=== PATIENT | female | born 1970 | race Caucasian/White ===

== ENCOUNTER → 2017-05-03 | Outpatient (CLI) | payer BC ==
--- NOTE | 2017-05-04 09:22 | MM ---
Reason for exam: screening (asymptomatic). Last mammogram was performed 1 year and 8 months ago. History: Patient has history of other cancer at age 26 and had first child at age 39. Family history of breast cancer in aunt at age 73. Took hormonal contraceptives for 12 years beginning at age 22. Physical Findings: A clinical breast exam by your physician is recommended on an annual basis and results should be correlated with mammographic findings. MG Screening Mammo w CAD Bilateral CC and MLO view(s) were taken. Prior study comparison: September 13, 2015, bilateral MG screening mammo w CAD. April 24, 2014, bilateral MG screening mammo w CAD. The breast tissue is heterogeneously dense. This may lower the sensitivity of mammography. Finding: There are typically benign round calcifications in the left breast. There is no discrete abnormality. ASSESSMENT: Benign, BI-RAD 2 RECOMMENDATION: Routine screening mammogram of both breasts in 1 year.
== END | disposition home or self-care (01) ==
LOC: RADMAMWWP 09:58
PROVIDERS: ATTEND Obstetrics & Gynecology
DX: Z12.31 Encounter for screening mammogram for malignant neoplasm of breast (principal)

== ENCOUNTER 2017-12-02 10:48 | Emergency (ER) | payer BC ==
[2017-12-02 10:54] VITALS: TEMP 97.7
--- NOTE | 2017-12-02 11:20 | ED ---
Headache HPI - General Chief Complaint: Headache Stated Complaint: NECK PAIN Time Seen by Provider: 12/02/17 11:00 Source: patient, RN notes reviewed Mode of arrival: ambulatory Limitations: no limitations - History of Present Illness Initial Comments: Is a 47-year-old female who presents with complaints of some pain to the right occipital area going down her neck and right arm. He occasionally have some tingling to her toe on the right foot that. She is not recall any incident of trauma but she does do exercising which includes running planks dumbbell workouts she states the pain is intermittent sharp in nature she points to the right occiput into the right lateral neck. This is a she intermittently will have some hearing loss and she looks to the right but then when she looks a left clears up she also complains right I blurry vision. She has not of this at this time. MD Complaint: headache, other - Related Data Home Medications Medication Instructions Recorded Confirmed Loratadine [Claritin] 10 mg PO DAILY 01/09/14 12/02/17 Potassium Chloride [Klor-Con 10] 10 meq PO DAILY 01/09/14 12/02/17 Etodolac [Lodine] 400 mg PO BID 12/02/17 12/02/17 Hydrochlorothiazide [Hydrodiuril] 25 mg PO DAILY 12/02/17 12/02/17 LORazepam [Ativan] 0.5 mg PO DAILY PRN 12/02/17 12/02/17 Previous Rx's Medication Instructions Recorded Cyclobenzaprine [Flexeril] 10 mg PO TID #14 tab 12/02/17 Ibuprofen 800 mg PO Q6HR PRN #20 tablet 12/02/17 predniSONE 20 mg PO BID #10 tab 12/02/17 Allergies Allergy/AdvReac Type Severity Reaction Status Date / Time clarithromycin [From Biaxin] Allergy Swelling Verified 12/02/17 11:03 erythromycin lactobionate Allergy Swelling Verified 12/02/17 11:03 [From Erythrocin] fexofenadine HCl Allergy Swelling Verified 12/02/17 11:03 [From Clara-D 12 Hour] Penicillins Allergy Dyspnea Verified 12/02/17 11:03 pseudoephedrine HCl Allergy Swelling Verified 12/02/17 11:03 [From Clara-D 12 Hour] Review of Systems ROS Statement: Those systems with pertinent positive or pertinent negative responses have been documented in the HPI. ROS Other: All systems not noted in ROS Statement are negative. Past Medical History Past Medical History: Hypertension Additional Past Medical History / Comment(s): bowel blockage for 3 weeks currently History of Any Multi-Drug Resistant Organisms: None Reported Past Surgical History: Section, Orthopedic Surgery, Tubal Ligation Additional Past Surgical History / Comment(s): jaw surgery to extend jaw. LEEP procedure Past Anesthesia/Blood Transfusion Reactions: No Reported Reaction Past Psychological History: No Psychological Hx Reported Smoking Status: Never smoker Past Alcohol Use History: None Reported Past Drug Use History: None Reported General Exam - General Exam Comments Initial Comments: This is a well-developed well-nourished awake alert oriented 3 female Limitations: no limitations General appearance: alert, anxious Head exam: Present: atraumatic, normocephalic, normal inspection Eye exam: Present: normal appearance, PERRL, EOMI. Absent: scleral icterus, conjunctival injection, periorbital swelling ENT exam: Present: normal exam, mucous membranes moist Neck exam: Present: normal inspection, tenderness, full ROM, other (Tennis palpation along the right occiput to palpation also the right lateral neck musculature and trapezius muscles. This does reproduce the pain when I palpate. ). Absent: meningismus, lymphadenopathy Respiratory exam: Present: normal lung sounds bilaterally. Absent: respiratory distress, wheezes, rales, rhonchi, stridor Cardiovascular Exam: Present: regular rate, normal rhythm, normal heart sounds. Absent: systolic murmur, diastolic murmur, rubs, gallop, clicks GI/Abdominal exam: Present: soft, normal bowel sounds. Absent: distended, tenderness, guarding, rebound, rigid Extremities exam: Present: normal inspection, full ROM, normal capillary refill. Absent: tenderness, pedal edema, joint swelling, calf tenderness Back exam: Present: normal inspection, full ROM. Absent: tenderness, muscle spasm, paraspinal tenderness, vertebral tenderness Neurological exam: Present: alert, oriented X3, CN II-XII intact Psychiatric exam: Present: normal affect, normal mood Skin exam: Present: warm, dry, intact, normal color. Absent: rash Course Vital Signs 12/02/17 10:50 Temperature 97.7 F Pulse Rate 72 Respiratory 18 Rate Blood Pressure 134/82 O2 Sat by Pulse 100 Oximetry Medical Decision Making - Medical Decision Making I did discuss the findings with the patient she does present with findings consistent with cervical radiculopathy and musculoskeletal pain and spasm. She' ll be placed on appropriate medication we did discuss different techniques for relieving the pain. - Lab Data Result diagrams: 12/02/17 11:46 12/02/17 11:46 Lab Results 12/02/17 12/02/17 Range/Units 11:46 11:46 WBC 5.2 (3.8-10.6) k/uL RBC 4.96 (3.80-5.40) m/uL Hgb 15.1 (11.4-16.0) gm/dL Hct 42.3 (34.0-46.0) % MCV 85.4 (80.0-100.0) fL MCH 30.4 (25.0-35.0) pg MCHC 35.6 (31.0-37.0) g/dL RDW 12.9 (11.5-15.5) % Plt Count 268 (150-450) k/uL Neutrophils % 67 % Lymphocytes % 26 % Monocytes % 4 % Eosinophils % 1 % Basophils % 0 % Neutrophils # 3.5 (1.3-7.7) k/uL Lymphocytes # 1.4 (1.0-4.8) k/uL Monocytes # 0.2 (0-1.0) k/uL Eosinophils # 0.1 (0-0.7) k/uL Basophils # 0.0 (0-0.2) k/uL Sodium 140 (137-145) mmol/L Potassium 4.2 (3.5-5.1) mmol/L Chloride 103 (98-107) mmol/L Carbon Dioxide 25 (22-30) mmol/L Anion Gap 12 mmol/L BUN 13 (7-17) mg/dL Creatinine 0.81 (0.52-1.04) mg/dL Est GFR (CKD-EPI)AfAm >90 (>60 ml/min/1.73 sqM) Est GFR (CKD-EPI)NonAf 87 (>60 ml/min/1.73 sqM) Glucose 85 (74-99) mg/dL Calcium 9.2 (8.4-10.2) mg/dL Magnesium 2.2 (1.6-2.3) mg/dL Total Bilirubin 0.7 (0.2-1.3) mg/dL AST 18 (14-36) U/L ALT 19 (9-52) U/L Alkaline Phosphatase 60 (38-126) U/L Total Protein 7.1 (6.3-8.2) g/dL Albumin 3.9 (3.5-5.0) g/dL - Radiology Data Radiology results: report reviewed (I did review the imaging and reports no acute findings there is evidence of degenerative change and lower cervical spine.), image reviewed Disposition Clinical Impression: Cervical radiculopathy, Myofascial pain Disposition: HOME SELF-CARE Condition: Good Instructions: Neck Pain (ED), Cervical Radiculopathy (ED), Muscle Spasm (ED) Additional Instructions: Refrain from taking her current pain medication until the other prescribed medication is completed Prescriptions: Cyclobenzaprine [Flexeril] 10 mg PO TID #14 tab Ibuprofen 800 mg PO Q6HR PRN #20 tablet PRN Reason: Pain predniSONE 20 mg PO BID #10 tab Referrals: Raymond Gallegos DO [Primary Care Provider] - 1-2 days
--- NOTE | 2017-12-02 11:52 | CT ---
EXAMINATION TYPE: CT brain rachel galeana DATE OF EXAM: 12/02/2017 COMPARISON: None. HISTORY: Patient complains of neck pain and right arm numbness. CT DLP: 1085.1 mGycm Automated exposure control for dose reduction was used. TECHNIQUE: CT scan of the head and cervical spine are performed without contrast. FINDINGS: BRAIN:Central structures are midline. There is no evidence of hydrocephalus. There is mild frontal at rophy. There is no focal lesion, mass effect or midline shift identified. I do not see evidence of in tracranial blood. Visualized portions of the paranasal sinuses and mastoids are clear. IMPRESSION: NO ACUTE INTRACRANIAL ABNORMALITY. CERVICAL SPINE: There are mild emphysematous changes within the lungs. Prevertebral soft tissues are unremarkable. There is a mild reversal of the normal cervical lordosis. Alignment is normal. Atlantoaxial relations hips are normal. There is mild degenerative disc disease at C5-6. There is uncovertebral joint diseas e present at this level. The facets are well maintained. There is mild, bilateral intervertebral fora kelvin narrowing at C5-6. No fractures are seen. IMPRESSION: 1. NO ACUTE OSSEOUS LESION. 2. DEGENERATIVE DISC DISEASE AND INTERVERTEBRAL FORAMINAL NARROWING, C5-6. 3. EMPHYSEMATOUS CHANGE WITHIN THE LUNGS.
[2017-12-02 11:55] LABS: Basophils % (A) 0 %; Eosinophils # (A) 0.1 k/uL (0-0.7); Eosinophils % (A) 1 %; HCT 42.3 % (34.0-46.0); HGB 15.1 gm/dL (11.4-16.0); Lymphocytes # (A) 1.4 k/uL (1.0-4.8); Lymphocytes % (A) 26 %; MCH 30.4 pg (25.0-35.0); MCHC 35.6 g/dL (31.0-37.0); MCV 85.4 fL (80.0-100.0); Mean Platelet Volume 6.5; Monocytes # (A) 0.2 k/uL (0-1.0); Monocytes % (A) 4 %; Neutrophils # (A) 3.5 k/uL (1.3-7.7); Neutrophils % (A) 67 %; Platelet Count 268 k/uL (150-450); RBC 4.96 m/uL (3.80-5.40); RDW 12.9 % (11.5-15.5); WBC 5.2 k/uL (3.8-10.6)
[2017-12-02 12:04] LABS: ALT 19 U/L (9-52); AST 18 U/L (14-36); Albumin 3.9 g/dL (3.5-5.0); Alkaline Phosphatase 60 U/L (38-126); Anion Gap 12 mmol/L; Blood Urea Nitrogen 13 mg/dL (7-17); Calcium 9.2 mg/dL (8.4-10.2); Carbon Dioxide 25 mmol/L (22-30); Chloride 103 mmol/L (98-107); Glucose 85 mg/dL (74-99); Magnesium 2.2 mg/dL (1.6-2.3); Potassium 4.2 mmol/L (3.5-5.1); Sodium 140 mmol/L (137-145); Total Bilirubin 0.7 mg/dL (0.2-1.3); Total Protein 7.1 g/dL (6.3-8.2)
[2017-12-02 12:57] VITALS: BP 122/77; PULSE 60; RESP 16
== END 2017-12-02 13:02 | disposition home or self-care (01) ==
LOC: EC 10:48
DX: M47.22 Other spondylosis with radiculopathy, cervical region (principal); M79.1 Myalgia; H91.91 Unspecified hearing loss, right ear; H53.8 Other visual disturbances; I10 Essential (primary) hypertension; Z79.1 Long term (current) use of non-steroidal anti-inflammatories (NSAID); Z79.899 Other long term (current) drug therapy; Z88.0 Allergy status to penicillin; Z88.1 Allergy status to other antibiotic agents; Z88.8 Allergy status to other drugs, medicaments and biological substances
CPT/HCPCS: 36415; 70450; 72125; 80053; 83735; 85025; 99284

== ENCOUNTER → 2018-04-18 | Outpatient (CLI) | payer BC ==
--- NOTE | 2018-04-18 09:36 | MR ---
EXAMINATION TYPE: MR brain wo/w con DATE OF EXAM: 04/18/2018 COMPARISON: CT brain 12/02/2017 HISTORY: TIA TECHNIQUE: Multiplanar, multisequence images of the brain and brainstem is performed without and with IV contras t, utilizing 8.5 mL intravenous Gadavist . FINDINGS: Diffusion weighted images demonstrate no evidence of a recent infarct or other diffusion ab normality. The ventricular system and cisternal spaces are normal in size and appearance. The brain volume is age appropriate. Midline structures demonstrate normal morphology. The craniocervical junction appears within normal limits. Post contrast images demonstrate no abnormal enhancement. The dural venous sinuses appear pa tent. Changes of mild chronic sinusitis. Area of low signal within the right thalamus may represent tiny ar ea of calcification. White matter: There are one or 2 less than 5 mm areas of abnormal signal scattered in the white matte r which are nonspecific. IMPRESSION: 1. No acute process. 2. Findings compatible with chronic sinusitis.
== END | disposition home or self-care (01) ==
LOC: RADMRIMAIN 07:49
PROVIDERS: ATTEND Psychiatry & Neurology Neurology
DX: G45.9 Transient cerebral ischemic attack, unspecified (principal); M54.2 Cervicalgia
CPT/HCPCS: 82565; 70553; 36415; A9581

== ENCOUNTER → 2018-05-28 | Outpatient (CLI) | payer BC ==
--- NOTE | 2018-05-29 07:06 | US ---
EXAMINATION TYPE: US transvaginal DATE OF EXAM: 05/28/2018 COMPARISON: NONE CLINICAL HISTORY: N92.1 Metrorrhagia. TECHNIQUE: Transvaginal (TV) Date of LMP: 05/04/18 EXAM MEASUREMENTS: Uterus: 8.4 x 4.5 x 4.8 cm Endometrial Stripe: 0.7 cm Right Ovary: 1.9 x 1.3 x 1.4 cm Left Ovary: 2.5 x 1.3 x 1.7 cm 1. Uterus: Anteverted, fibroid 1.5 x 1.5 x 1.4cm 2. Endometrium: 0.7cm 3. Right Ovary: somewhat limited due to overlying bowel gas, appears wnl 4. Left Ovary: wnl 5. Bilateral Adnexa: wnl 6. Posterior cul-de-sac: wnl IMPRESSION: 1. Leiomyomatous change of the uterus.
== END | disposition home or self-care (01) ==
LOC: RADUSWWP 16:10
PROVIDERS: ATTEND Obstetrics & Gynecology
DX: D25.9 Leiomyoma of uterus, unspecified (principal)
CPT/HCPCS: 76830

== ENCOUNTER → 2018-07-04 | Outpatient (CLI) | payer BC ==
--- NOTE | 2018-07-05 11:37 | MM ---
Reason for exam: screening (asymptomatic). Last mammogram was performed 1 year and 2 months ago. History: Patient has history of other cancer at age 26 and had first child at age 39. Family history of breast cancer in aunt at age 73. Took hormonal contraceptives for 12 years beginning at age 22. Physical Findings: A clinical breast exam by your physician is recommended on an annual basis and results should be correlated with mammographic findings. MG 3D Screening Mammo W/Cad Bilateral CC and MLO view(s) were taken. Prior study comparison: May 03, 2017, bilateral MG screening mammo w CAD. September 13, 2015, bilateral MG screening mammo w CAD. The breast tissue is heterogeneously dense. This may lower the sensitivity of mammography. Benign calcifications in the left breast. No suspicious abnormality. No significant changes when compared with prior studies. ASSESSMENT: Benign, BI-RAD 2 RECOMMENDATION: Routine screening mammogram of both breasts in 1 year.
== END | disposition home or self-care (01) ==
LOC: RADMAMWWP 15:47
PROVIDERS: ATTEND Obstetrics & Gynecology
DX: Z12.31 Encounter for screening mammogram for malignant neoplasm of breast (principal)
CPT/HCPCS: 77063; 77067

== ENCOUNTER → 2018-09-30 | Outpatient (CLI) | payer BC ==
[2018-09-30 12:34] LABS: Basophils % (A) 1 %; Eosinophils # (A) 0.1 k/uL (0-0.7); Eosinophils % (A) 2 %; HCT 43.6 % (34.0-46.0); HGB 14.4 gm/dL (11.4-16.0); Lymphocytes # (A) 1.6 k/uL (1.0-4.8); Lymphocytes % (A) 35 %; MCH 29.7 pg (25.0-35.0); MCV 89.9 fL (80.0-100.0); Mean Platelet Volume 6.2; Monocytes # (A) 0.2 k/uL (0-1.0); Monocytes % (A) 4 %; Neutrophils # (A) 2.6 k/uL (1.3-7.7); Neutrophils % (A) 57 %; Platelet Count 262 k/uL (150-450); RBC 4.85 m/uL (3.80-5.40); RDW 12.9 % (11.5-15.5); WBC 4.6 k/uL (3.8-10.6)
== END | disposition home or self-care (01) ==
LOC: LABPAT 11:09
PROVIDERS: ATTEND Obstetrics & Gynecology
DX: Z01.812 Encounter for preprocedural laboratory examination (principal)
CPT/HCPCS: 36415; 85025

== ENCOUNTER 2018-10-03 06:17 | Day surgery (SDC) | payer BC ==
--- NOTE | 2018-10-02 17:20 | P.HPOB ---
History of Present Illness H&P Date: 10/02/18 Chief Complaint: Dysfunctional uterine bleeding This patient is a pleasant 47-year-old 4 para 2 female who presented to my office with complaints of long-standing dysfunctional uterine bleeding. Patient endometrial biopsy which was normal. Patient also had a transvaginal ultrasound which was also normal with the exception of a 1.5 cm fibroid. Patient has had a tubal ligation. She is now requesting NovaSure endometrial ablation for treatment. Review of Systems Genitourinary: Reports as per HPI, Reports abnormal vaginal bleeding, Reports menorrhagia Menstruation: Reports menses variable Past Medical History Past Medical History: CVA/TIA, Hypertension, Osteoarthritis (OA) Additional Past Medical History / Comment(s): CURRENT: HAVING TWO PERIODS A MONTH. POSSIBLE TIA. History of Any Multi-Drug Resistant Organisms: None Reported Past Surgical History: Section, Orthopedic Surgery, Tubal Ligation Additional Past Surgical History / Comment(s): Jaw surgery to extend jaw 1992. LEFT KNEE ARTHROSCOPY. LEFT MIDDLE FINGER, GANGLION. LEEP procedure Past Anesthesia/Blood Transfusion Reactions: No Reported Reaction Past Psychological History: Anxiety, Depression Smoking Status: Never smoker Past Alcohol Use History: Occasional Past Drug Use History: None Reported - Past Family History Father Family Medical History: Deep Vein Thrombosis (DVT) Medications and Allergies Home Medications Medication Instructions Recorded Confirmed Type Loratadine [Claritin] 10 mg PO QAM 01/09/14 10/01/18 History Potassium Chloride [Klor-Con 10] 10 meq PO QAM 01/09/14 10/01/18 History Etodolac [Lodine] 400 mg PO BID PRN 12/02/17 10/01/18 History Hydrochlorothiazide [Hydrodiuril] 25 mg PO QAM 12/02/17 10/01/18 History Ibuprofen 800 mg PO Q6HR PRN #20 tablet 12/02/17 10/01/18 Rx LORazepam [Ativan] 0.5 mg PO QAM 12/02/17 10/01/18 History Escitalopram [Lexapro] 20 mg PO QAM 10/01/18 10/01/18 History Allergies Allergy/AdvReac Type Severity Reaction Status Date / Time clarithromycin [From Biaxin] Allergy Swelling Verified 10/01/18 15:24 erythromycin lactobionate Allergy Swelling Verified 10/01/18 15:24 [From Erythrocin] fexofenadine HCl Allergy Swelling Verified 10/01/18 15:24 [From Clara-D 12 Hour] Penicillins Allergy Dyspnea Verified 10/01/18 15:24 pseudoephedrine HCl Allergy Swelling Verified 10/01/18 15:24 [From Clara-D 12 Hour] Sulfa (Sulfonamide Allergy Unknown Verified 10/01/18 15:24 Antibiotics) Exam - OBG Physical Exam Abdomen: bowel sounds normal, no diffuse tenderness, no bruit present, no guarding noted, no hepatomegaly, no splenomegaly, no mass Vulva: both: normal Vagina: normal moisture, no discharge Cervix: no lesion, no discharge Uterus: normal size, normal contour Results Normal transvaginal ultrasound and endometrial biopsy. Assessment and Plan Assessment: This is a pleasant 47-year-old 4 para 2 female with persistent dysfunctional uterine bleeding and negative evaluation. Patient is requesting trial of NovaSure endometrial ablation for treatment. She and I discussed the surgery in detail including the risks of infection, bleeding possible uterine perforation and/or thermal injury. All the patient's questions are answered and a written consent is obtained. Plan is hysteroscopy, D&C, endometrial ablation with NovaSure. (1) Dysfunctional uterine bleeding Status: Acute Code(s): N93.8 - OTHER SPECIFIED ABNORMAL UTERINE AND VAGINAL BLEEDING SNOMED Code(s): 68579946
[~2018-10-03 06:17] MED LIST: DEXAMETHASONE SOD PHOSPHATE 10 MG/ML 1 ML VIAL IV ONE; LIDOCAINE 1% 20 ML VIAL (10MG/ML) FOR IV START INTRADERMA PRN; MIDAZOLAM (PF) 2 MG/2 ML VIAL IV PRN; ONDANSETRON 4 MG/2 ML VIAL IVP ONE; Pre Op ABX Message 1 EACH MISC MISCELLANE ONE; fentaNYL (PF) 50 MCG/ML 2 ML AMP IV PRN
[2018-10-03] MEDS: LACTATED RINGERS 1,000 ML IV SCH ×2 (07:12→07:25)
[2018-10-03] MEDS ORDERED: LIDOCAINE 1% 20 ML VIAL (10MG/ML) FOR IV START INTRADERMA ONE (07:13)
[2018-10-03] MEDS ORDERED: PROPOFOL 10 MG/ML 20 ML VIAL IV ONE (07:21)
[2018-10-03] MEDS ORDERED: MIDAZOLAM 2 MG/2 ML VIAL ONE (07:21)
[2018-10-03] MEDS ORDERED: fentaNYL (PF) 50 MCG/ML 2 ML AMP ONE (07:21)
[2018-10-03] MEDS ORDERED: KETOROLAC 30 MG/ML 1 ML VIAL ONE (07:21)
[2018-10-03] MEDS ORDERED: LIDOCAINE 1% INJ 10MG/ML (20 ML MDV) ONE (07:21)
[2018-10-03] MEDS ORDERED: IV FLUID CONTINUATION 1,000 ML IV ONE (08:00)
--- NOTE | 2018-10-03 08:03 | P.OP ---
Date of Procedure: 10/03/18 Preoperative Diagnosis: Dysfunctional uterine bleeding Postoperative Diagnosis: Same Procedure(s) Performed: #1: Hysteroscopy. #2: Dilation and curettage. #3: NovaSure endometrial ablation Anesthesia: MAC Surgeon: Landen Saxena Estimated Blood Loss (ml): 10 Urine output (ml): 10 Pathology: other (Uterine curettings) Condition: stable Disposition: PACU Indications for Procedure: Please see dictated H&P for intimate details of this patient's admission. Brief summary this pleasant 47-year-old 4 para 2 female who has had long -standing problems with menorrhagia. Evaluation has shown a normal pelvic ultrasound a normal endometrial biopsy. Patient is requesting endometrial ablation for treatment at this time. She does understand the surgery and risks including risks of infection, bleeding, possible uterine perforation, and/or thermal injury. All the patient's questions are answered written consent is obtained Operative Findings: Normal appearing endometrial cavity Description of Procedure: This patient was taken to the operating room where she is laid in the supine position. She subsequently undergoes general mask anesthesia without incident. With adequate level of anesthesia she's placed in dorsal lithotomy position. She has a vaginal perineal prep and drape. Examination under anesthesia shows a mid position uterus. Weighted speculum was placed in the posterior vagina. Bladder is drained for 10 mL of clear urine. I then take an Allis clamp and grabbed the anterior lip of the cervix. Uterus is then gently sounded to 8.5 cm. Gentle dilation is then done of the cervix to allow the hysteroscope into the uterine cavity. Using saline solution hysteroscopy is performed. Is no evidence of any intrauterine growths. With this done the hysteroscope was removed the cervix is dilated more to allow a small curette into the uterine cavity. A gentle but thorough 4 quadrant curettage is done for adequate sampling. With this done the NovaSure device is then opened appears to be intact. It is set at a length of 6.0 cm and seated in the uterus and opens to a width of 3.6 cm. It is then enabled at 119 W setting for 80 seconds. After passing the cavity integrity test. NovaSure device is then removed and appears to be intact. Final hysteroscopy is performed uterine cavity appears to be ablated up to the endocervix. Excellent results are noted. At this time the procedure is ended the weighted speculum Allis clamp was removed. All counts are correct 3. There are no complications. Patient is awakened from anesthesia and taken the recovery room in satisfactory condition.
[2018-10-03 08:09] VITALS: TEMP 97.4
[2018-10-03 09:21] VITALS: RESP 16
[2018-10-03] MEDS ORDERED: ACETAMINOPHEN TAB 500 MG TAB PO ONE (09:47)
[2018-10-03 09:51] VITALS: PULSE 50
[2018-10-03 10:07] VITALS: BP 127/76
== END 2018-10-03 10:45 | disposition home or self-care (01) ==
LOC: OR 06:17
PROVIDERS: ATTEND Obstetrics & Gynecology
DX: N93.8 Other specified abnormal uterine and vaginal bleeding (principal); D21.9 Benign neoplasm of connective and other soft tissue, unspecified; I10 Essential (primary) hypertension; M19.90 Unspecified osteoarthritis, unspecified site; F41.9 Anxiety disorder, unspecified; F32.9 Major depressive disorder, single episode, unspecified; Z98.51 Tubal ligation status; Z86.73 Personal history of transient ischemic attack (TIA), and cerebral infarction without residual deficits; Z79.899 Other long term (current) drug therapy; Z79.82 Long term (current) use of aspirin; Z88.0 Allergy status to penicillin; Z88.1 Allergy status to other antibiotic agents; Z88.8 Allergy status to other drugs, medicaments and biological substances; Z88.2 Allergy status to sulfonamides
CPT/HCPCS: 81025; 88305; 58563; J2250; J1100; J2405; J2001; J3010; J1885; J2704

== ENCOUNTER → 2019-08-20 | Outpatient (CLI) | payer BC ==
--- NOTE | 2019-08-21 14:10 | MM ---
Reason for exam: screening (asymptomatic). Last mammogram was performed 1 year and 2 months ago. History: Patient has history of other cancer at age 26 and had first child at age 39. Family history of breast cancer in aunt at age 73. Took hormonal contraceptives for 12 years beginning at age 22. Physical Findings: A clinical breast exam by your physician is recommended on an annual basis and results should be correlated with mammographic findings. MG Screening Mammo w CAD Bilateral CC and MLO view(s) were taken. Prior study comparison: July 04, 2018, bilateral MG 3d screening mammo w/cad. May 03, 2017, bilateral MG screening mammo w CAD. The breast tissue is heterogeneously dense. This may lower the sensitivity of mammography. Benign appearing calcifications in the left breast. No suspicious abnormality. No significant changes when compared with prior studies. ASSESSMENT: Benign, BI-RAD 2 RECOMMENDATION: Routine screening mammogram of both breasts in 1 year.
== END | disposition home or self-care (01) ==
LOC: RADMAMWWP 16:44
PROVIDERS: ATTEND Obstetrics & Gynecology
DX: Z12.31 Encounter for screening mammogram for malignant neoplasm of breast (principal)
CPT/HCPCS: 77067

== ENCOUNTER → 2019-10-10 | Outpatient (CLI) | payer BC | END | disposition home or self-care (01) | LOC: LABWHC1 10:56 | PROVIDERS: ATTEND Orthopaedic Surgery | DX: I10 Essential (primary) hypertension (principal); M25.511 Pain in right shoulder; E78.5 Hyperlipidemia, unspecified; M75.31 Calcific tendinitis of right shoulder; S43.401D Unspecified sprain of right shoulder joint, subsequent encounter | CPT/HCPCS: 36415; 85652; 86140 ==

== ENCOUNTER → 2019-10-23 | Outpatient (CLI) | payer BC ==
--- NOTE | 2019-10-23 10:47 | CT ---
EXAMINATION TYPE: CT chest w con DATE OF EXAM: 10/23/2019 COMPARISON: None HISTORY: SOB, pleural effusion CT DLP: 449.8 mGycm, Automated exposure control for dose reduction was used. CONTRAST: Performed injected with 100 mL of Isovue 300. TECHNIQUE: Axial images were obtained at 5 mm thick sections. Reconstructed images are reviewed on [facility] computer in the coronal plane. FINDINGS: Portion of the thyroid visualized is normal. No suspicious lung nodules or focal infiltrates are present. No pleural effusion is evident. No enlarged mediastinal or hilar adenopathy is evident. The ascending aorta diameter at the level o f the main pulmonary artery is 3.1 cm. The main pulmonary artery diameter at the bifurcation is 2.[address] sections are obtained through the upper abdomen. Abdomen is essentially unremarkable. IMPRESSIONS: 1. Normal Chest CT.
--- NOTE | 2019-10-23 19:42 | ECHOF ---
Referral Reason:J90 Plural Effusion not elsewhere specified MEASUREMENTS -------- HEIGHT: 175.3 cm WEIGHT: 96.6 kg BP: IVSd: 1.6 cm (0.6 - 1.1) LVIDd: 3.3 cm (3.9 - 5.3) LVPWd: 1.6 cm (0.6 - 1.1) IVSs: 1.8 cm LVIDs: 1.8 cm LVPWs: 2.1 cm RVIDd: 2.8 cm (< 3.3) LAESV Index (A-L): 25.68 ml/m Ao Diam: 2.3 cm (2.0 - 3.7) LA Diam: 2.9 cm (2.7 - 3.8) AV Cusp: 1.8 cm (1.5 - 2.6) EPSS: 0.3 cm MV E Chauncey: 0.83 m/s MV DecT: 248 ms MV A Chauncey: 0.85 m/s MV E/A Ratio: 0.97 RAP: 5.00 mmHg RVSP: 16.53 mmHg MV EF SLOPE: 91.74 mm/s (70 - 150) MV EXCURSION: 14.23 mm (> 18.000) TAPSE: 21.52 mm FINDINGS -------- Sinus rhythm. This was a technically good study. The left ventricular size is normal. There is moderate concentric left ventricular hypertrophy. O verall left ventricular systolic function is normal with, an EF between 55 - 60 %. The diastolic fi lling pattern is normal for the age of the patient 12.39. The right ventricle is normal in size. The left atrial size is normal. Normal LA size by volume 22+/-6 ml/m2. The right atrial size is normal. The aortic valve is trileaflet and appears structurally normal. The mitral valve is normal. The mitral valve leaflets are mildly thickened. Mild mitral regurgita tion is present. The tricuspid valve appears structurally normal. Trace tricuspid regurgitation present. Right gissel tricular systolic pressure is normal at < 35 mmHg. There is no pulmonic regurgitation present. The aortic root size is normal. Normal inferior vena cava with normal inspiratory collapse consistent with estimated right atrial pre ssure of 5 mmHg. There is no pericardial effusion. CONCLUSIONS -------- 1. Sinus rhythm. 2. This was a technically good study. 3. The left ventricular size is normal. 4. There is moderate concentric left ventricular hypertrophy. 5. Overall left ventricular systolic function is normal with, an EF between 55 - 60 %. 6. The diastolic filling pattern is normal for the age of the patient 12.39 7. The right ventricle is normal in size. 8. The left atrial size is normal. 9. Normal LA size by volume 22+/-6 ml/m2. 10. The right atrial size is normal. 11. The aortic valve is trileaflet and appears structurally normal. 12. The mitral valve is normal. 13. The mitral valve leaflets are mildly thickened. 14. Mild mitral regurgitation is present. 15. The tricuspid valve appears structurally normal. 16. Trace tricuspid regurgitation present. 17. Right ventricular systolic pressure is normal at < 35 mmHg. 18. There is no pulmonic regurgitation present. 19. The aortic root size is normal. 20. Normal inferior vena cava with normal inspiratory collapse consistent with estimated right atrial pressure of 5 mmHg. 21. There is no pericardial effusion. AUTOGLAZIER: Rosalie Maki RDCS
== END | disposition home or self-care (01) ==
LOC: RADCTMAIN 09:48
PROVIDERS: ATTEND Family Medicine
DX: I34.0 Nonrheumatic mitral (valve) insufficiency (principal); J90 Pleural effusion, not elsewhere classified
CPT/HCPCS: 93306; 71260; Q9967

== ENCOUNTER 2019-12-04 20:18 | Emergency (ER) | payer BC ==
[2019-12-04 20:25] VITALS: BP 130/85; PULSE 82; RESP 18; TEMP 97.8
[2019-12-04] MEDS ORDERED: PROPARACAINE 0.5% OPHTH DROPS 15 ML BTL RIGHT EYE STA (20:31)
[2019-12-04] MEDS ORDERED: FLUORESCEIN STRIPS 1 MG STRIP RIGHT EYE ONE (20:31)
--- NOTE | 2019-12-04 20:34 | ED ---
General Adult HPI - General Chief complaint: ENT Stated complaint: Eye Problems Time Seen by Provider: 12/04/19 20:26 Source: patient Mode of arrival: ambulatory Limitations: no limitations - History of Present Illness Initial comments: Patient is a 49-year-old female presenting to the emergency Department with complaints of irritation her right eye. Patient states she was sewing facial mask when the needle broke off and hit her in the right eye. Patient feels like there is still something in her eye. She states this happened just prior to arrival. She admits to wearing contacts however they were not in when this happened. She denies loss of vision, eye pain. She has no other complaints at this time. Upon arrival to ER, her vital signs are stable. - Related Data Home Medications Medication Instructions Recorded Confirmed Loratadine [Claritin] 10 mg PO QAM 01/09/14 10/03/18 Potassium Chloride [Klor-Con 10] 10 meq PO QAM 01/09/14 10/03/18 Etodolac [Lodine] 400 mg PO BID PRN 12/02/17 10/03/18 Hydrochlorothiazide [Hydrodiuril] 25 mg PO QAM 12/02/17 10/03/18 LORazepam [Ativan] 0.5 mg PO QAM 12/02/17 10/03/18 Escitalopram [Lexapro] 20 mg PO QAM 10/01/18 10/03/18 Previous Rx's Medication Instructions Recorded Ibuprofen 800 mg PO Q6HR PRN #20 tablet 12/02/17 Ibuprofen [Motrin] 600 mg PO Q6HR PRN #40 tab 10/03/18 Gentamicin 0.3% Ophth Oint [Gentak 1 applic RIGHT EYE Q8H 5 Days #1 12/04/19 0.3% Ophth Oint] tube Allergies Allergy/AdvReac Type Severity Reaction Status Date / Time clarithromycin [From Biaxin] Allergy Swelling Verified 10/03/18 06:54 erythromycin lactobionate Allergy Swelling Verified 10/03/18 06:54 [From Erythrocin] fexofenadine HCl Allergy Swelling Verified 10/03/18 06:54 [From Clara-D 12 Hour] Penicillins Allergy Dyspnea Verified 10/03/18 06:54 pseudoephedrine HCl Allergy Swelling Verified 10/03/18 06:54 [From Clara-D 12 Hour] Sulfa (Sulfonamide Allergy Unknown Verified 10/03/18 06:54 Antibiotics) Review of Systems ROS Statement: Those systems with pertinent positive or pertinent negative responses have been documented in the HPI. ROS Other: All systems not noted in ROS Statement are negative. Past Medical History Past Medical History: Hypertension Additional Past Medical History / Comment(s): bowel blockage, Fx clavicle, fluid around spine, torn rotator , History of Any Multi-Drug Resistant Organisms: None Reported Past Surgical History: Ablation, Section Additional Past Surgical History / Comment(s): jaw surgery to extend jaw. LEEP procedure Past Anesthesia/Blood Transfusion Reactions: No Reported Reaction Past Psychological History: No Psychological Hx Reported Smoking Status: Never smoker Past Alcohol Use History: Occasional Past Drug Use History: None Reported General Exam - General Exam Comments Initial Comments: GENERAL: Well-appearing, well-nourished and in no acute distress. HEAD: Atraumatic, normocephalic. EYES: Pupils equal round and reactive to light, extraocular movements intact, sclera anicteric, conjunctiva are normal. With fluorescein stain, mild corneal abrasion at the 3 o'clock position. No foreign bodies are seen. ENT: TMs normal, nares patent, oropharynx clear without exudates. Moist mucous membranes. NECK: Normal range of motion, supple without lymphadenopathy or JVD. LUNGS: Breath sounds clear to auscultation bilaterally and equal. No wheezes rales or rhonchi. HEART: Regular rate and rhythm without murmurs, rubs or gallops. ABDOMEN: Soft, nontender, normoactive bowel sounds. No guarding, no rebound. No masses appreciated. : Deferred EXTREMITIES: Normal range of motion, no pitting or edema. No clubbing or cyanosis. NEUROLOGICAL: Normal speech, normal gait. PSYCH: Normal mood, normal affect. SKIN: Warm, Dry, normal turgor, no rashes or lesions noted. Limitations: no limitations Course Vital Signs 12/04/19 20:20 Temperature 97.8 F Pulse Rate 82 Respiratory 18 Rate Blood Pressure 130/85 O2 Sat by Pulse 99 Oximetry Medical Decision Making - Medical Decision Making Patient is 49-year-old female complaining of right eye irritation after a needle hit her right thigh. Vitals are stable. Vision is normal. Under fluorescein stain, patient has a mild corneal abrasion to the right at 3 o'clock position. No foreign bodies are seen. Patient will be started antibiotic ointment. She'll follow up with eye doc if symptoms persist. She is stable for discharge and is agreement with this plan of care. Return parameters were discussed with the patient and she verbalized understanding. Disposition Clinical Impression: Injury of conjunctiva and corneal abrasion of right eye w/o FB Disposition: HOME SELF-CARE Condition: Stable Instructions (If sedation given, give patient instructions): Corneal Abrasion (ED) Additional Instructions: Please return to the Emergency Department if symptoms worsen or any other concerns. Use antibiotic ointment as prescribed. Follow-up with eye doctor if symptoms aren't improving. Prescriptions: Gentamicin 0.3% Ophth Oint [Gentak 0.3% Ophth Oint] 1 applic RIGHT EYE Q8H 5 Days #1 tube Is patient prescribed a controlled substance at d/c from ED?: No Referrals: Raymond Gallegos DO [Primary Care Provider] - 1-2 days
== END 2019-12-04 20:52 | disposition home or self-care (01) ==
LOC: EC 20:18
DX: S05.01XA Injury of conjunctiva and corneal abrasion without foreign body, right eye, initial encounter (principal); I10 Essential (primary) hypertension; Z88.0 Allergy status to penicillin; Z88.1 Allergy status to other antibiotic agents; Z88.2 Allergy status to sulfonamides; Z88.8 Allergy status to other drugs, medicaments and biological substances; Z79.899 Other long term (current) drug therapy; Z97.3 Presence of spectacles and contact lenses; W20.8XXA Other cause of strike by thrown, projected or falling object, initial encounter; Y93.89 Activity, other specified
CPT/HCPCS: 99283

== ENCOUNTER → 2020-09-13 | Outpatient (CLI) | payer BC ==
--- NOTE | 2020-09-13 13:18 | BD ---
EXAMINATION TYPE: Axial Bone Density DATE OF EXAM: 09/13/2020 COMPARISON: NONE CLINICAL HISTORY: 49 YR OLD FEMALE.....ICD-10 CODE: Z13.820 OSTEOPOROSIS SCREENING, Z78.0 POST ME NOPAUSAL Height: 67.8 Weight: 217 FRAX RISK QUESTIONS: History of Fracture in Adulthood: YES Rheumatoid Arthritis: YES RISK FACTORS HISTORY OF: LT FOOT AND LT WRIST AND RT CLAVICLE ALL AN ADULT History of Wrist Fracture: YES, LT Family History of Osteoporosis: YES, NO HIP FX Postmenopausal woman: LMP ABLATION 2 YRS AGO, Hyperparathyroidism: NO Adrenal Insufficiency: NO MEDICATIONS: Thyroid Medications: YES, SYNTHROID, 1 YR Additional Medications: BP MED, LORAZEPAM, OCELOPRAM, STATIN FOR CHOLESTEROL, VIT D AND CALCIUM Additional History: HYPERTENSION, CHOLESTEROL, RA EXAM MEASUREMENTS: Bone mineral densitometry was performed using the [employer] System. Bone mineral density as measured about the Lumbar spine is: ----- L1-L4(G/cm2): 1.413 T Score Values are as follows: ----- L1: 0.7 ----- L2: 2.1 ----- L3: 2.6 ----- L4: 2.0 ----- L1-L4: 1.9 Bone mineral density FIRST BONE DENSITY..........BASELINE STUDY Bone mineral density about the R hip (g/cm2): 1.016 Bone mineral density about the L hip (g/cm2): 1.104 T Score values are as follows: -----R Neck: 0.0 -----L Neck: 0.2 -----R Total: 0.1 -----L Total: 0.8 Bone mineral density BASELINE STUDY FRAX%s: THERE IS A 8.3% CHANCE FOR A MAJOR OSTEOPOROTIC FX AND A 0.2% FOR HIP.......PROBABILITY FO R FX IN 10 YRS TIME IMPRESSION: Normal (Values between +1 and -1 indicate normal bone mass). Consider repeating this study in 5 year s or sooner if there is some new clinical indication. NOTE: T-SCORE=SD OF THE YOUNG ADULT MEAN.
--- NOTE | 2020-09-14 10:31 | MM ---
Reason for exam: screening (asymptomatic). Last mammogram was performed 1 year and 1 month ago. History: Patient has history of other cancer at age 26 and had first child at age 39. Family history of breast cancer in aunt at age 73. Took hormonal contraceptives for 12 years beginning at age 22. Physical Findings: A clinical breast exam by your physician is recommended on an annual basis and results should be correlated with mammographic findings. MG 3D Screening Mammo W/Cad Bilateral CC and MLO view(s) were taken. Prior study comparison: August 20, 2019, bilateral MG screening mammo w CAD. July 04, 2018, bilateral MG 3d screening mammo w/cad. The breast tissue is heterogeneously dense. This may lower the sensitivity of mammography. Benign calcifications. No significant changes when compared with prior studies. ASSESSMENT: Incomplete: need additional imaging evaluation, BI-RAD 0 RECOMMENDATION: Ultrasound of both breasts. [facility] will attempt to contact patient to return for ultrasound.
== END | disposition home or self-care (01) ==
LOC: RADMAMWWP 09:19
PROVIDERS: ATTEND Obstetrics & Gynecology
DX: Z12.31 Encounter for screening mammogram for malignant neoplasm of breast (principal); Z13.820 Encounter for screening for osteoporosis; Z78.0 Asymptomatic menopausal state; Z80.3 Family history of malignant neoplasm of breast
CPT/HCPCS: 77063; 77067; 77080

== ENCOUNTER → 2020-09-15 | Outpatient (CLI) | payer BC ==
--- NOTE | 2020-09-15 09:24 | USB ---
Reason for exam: additional evaluation requested from abnormal screening. History: Patient has history of other cancer at age 26 and had first child at age 39. Family history of breast cancer in aunt at age 73. Took hormonal contraceptives for 12 years beginning at age 22. Physical Findings: Nurse Summary: Patient complains of heavy swollen breasts, constant pressure/pain (nurse mj). US Breast Workup JACOB Right complete breast ultrasound includes all four quadrants, the retroareolar region and axilla. Finding demonstrates no cystic or solid lesion seen. Left complete breast ultrasound includes all four quadrants, the retroareolar region and axilla. Finding demonstrates a 2.2 x 0.3 x 2.7cm cystic cluster at 2 o'clock likely fibrocystic change and a 0.5 x 0.6 x 0.5cm cystic, benign lesion at the posterior nipple. These results were verbally communicated with the patient and result sheet given to the patient on 09/15/20. ASSESSMENT: Benign, BI-RAD 2 RECOMMENDATION: Return to routine screening mammogram schedule for both breasts. Manage on a clinical basis with regard to bilateral breast pain.
== END | disposition home or self-care (01) ==
LOC: RADUSWWP 08:04
PROVIDERS: ATTEND Obstetrics & Gynecology
DX: R92.8 Other abnormal and inconclusive findings on diagnostic imaging of breast (principal)

== ENCOUNTER 2020-09-29 16:12 | Observation (INO) | payer BC ==
[2020-09-29 17:24] LABS: Basophils % (A) 0 %; Eosinophils # (A) 0.1 k/uL (0-0.7); Eosinophils % (A) 1 %; HCT 43.9 % (34.0-46.0); HGB 15.1 gm/dL (11.4-16.0); Lymphocytes # (A) 2.2 k/uL (1.0-4.8); Lymphocytes % (A) 36 %; MCH 30.2 pg (25.0-35.0); MCHC 34.4 g/dL (31.0-37.0); MCV 87.6 fL (80.0-100.0); Mean Platelet Volume 6.7; Monocytes # (A) 0.3 k/uL (0-1.0); Monocytes % (A) 4 %; Neutrophils # (A) 3.6 k/uL (1.3-7.7); Neutrophils % (A) 58 %; Platelet Count 247 k/uL (150-450); RBC 5.01 m/uL (3.80-5.40); RDW 12.5 % (11.5-15.5); WBC 6.2 k/uL (3.8-10.6)
[2020-09-29 17:34] LABS: ALT 15 U/L (4-34); AST 30 U/L (14-36); African American GFR (CKD) >90 (>60 ml/min/1.73 sqM); Albumin 4.7 g/dL (3.5-5.0); Alkaline Phosphatase 80 U/L (38-126); Anion Gap 10 mmol/L; Blood Urea Nitrogen 16 mg/dL (7-17); Calcium 9.7 mg/dL (8.4-10.2); Carbon Dioxide 27 mmol/L (22-30); Chloride 103 mmol/L (98-107); Glucose 95 mg/dL (74-99); Magnesium 2.2 mg/dL (1.6-2.3); Non-African American GFR(CKD) >90 (>60 ml/min/1.73 sqM); Potassium 3.8 mmol/L (3.5-5.1); Sodium 140 mmol/L (137-145); Total Bilirubin 0.6 mg/dL (0.2-1.3); Total Protein 8.1 g/dL (6.3-8.2)
--- NOTE | 2020-09-29 17:41 | XR ---
EXAMINATION TYPE: XR chest 2V DATE OF EXAM: 09/29/2020 COMPARISON: NONE HISTORY: Short of breath TECHNIQUE: 2 views FINDINGS: Heart and mediastinum are normal. Lungs are clear. Diaphragm is normal. Bony thorax appears normal. IMPRESSION: Normal chest.
[2020-09-29 17:44] LABS: D-Dimer 0.3 mg/L FEU (<0.60); Partial Thromboplastin Time 27.2 sec (22.0-30.0); Prothrombin Time 10.7 sec (9.0-12.0)
--- NOTE | 2020-09-29 17:48 | ED ---
General Adult HPI - General Chief complaint: Chest Pain Stated complaint: chest pressure/SOB Time Seen by Provider: 09/29/20 16:32 Source: patient, EMS, RN notes reviewed, old records reviewed Mode of arrival: EMS Limitations: altered mental status - History of Present Illness Initial comments: 49-year-old female presenting for evaluation of dyspnea, left-sided chest pain. Patient states her symptom is been ongoing for several months since prior to C hristmas. She states over the past several days and seems to have worsened. She denies cough. She denies fever but states she's been chilled. She had had this generalized weakness and fatigue as well. She will follow with a primary care physician and states she has an echocardiogram ordered for next week. She has no known history of coronary artery disease. She denies central radiating chest pain. She denies cough. She denies orthopnea. She denies lower extremity pain or swelling. - Related Data Home Medications Medication Instructions Recorded Confirmed Loratadine [Claritin] 10 mg PO DAILY PRN 01/09/14 09/29/20 LORazepam [Ativan] 0.5 mg PO BID PRN 12/02/17 09/29/20 hydroCHLOROthiazide [Hydrodiuril] 25 mg PO DAILY 12/02/17 09/29/20 Escitalopram [Lexapro] 20 mg PO DAILY 10/01/18 09/29/20 Atorvastatin [Lipitor] 10 mg PO HS 09/29/20 09/29/20 Levothyroxine Sodium [Synthroid] 25 mcg PO HS 09/29/20 09/29/20 Allergies Allergy/AdvReac Type Severity Reaction Status Date / Time clarithromycin [From Biaxin] Allergy Swelling Verified 09/29/20 17:30 erythromycin lactobionate Allergy Swelling Verified 09/29/20 17:30 [From Erythrocin] fexofenadine HCl Allergy Swelling Verified 09/29/20 17:30 [From Clara-D 12 Hour] Penicillins Allergy Dyspnea Verified 09/29/20 17:30 pseudoephedrine HCl Allergy Swelling Verified 09/29/20 17:30 [From Clara-D 12 Hour] Sulfa (Sulfonamide Allergy Unknown Verified 09/29/20 17:30 Antibiotics) Review of Systems ROS Statement: Those systems with pertinent positive or pertinent negative responses have been documented in the HPI. ROS Other: All systems not noted in ROS Statement are negative. Past Medical History Past Medical History: CVA/TIA, Hypertension, Pneumonia Additional Past Medical History / Comment(s): [place] december 02, 2017bowel blockage, Fx clavicle, fluid around spine, torn rotator , History of Any Multi-Drug Resistant Organisms: None Reported Past Surgical History: Ablation, Section Additional Past Surgical History / Comment(s): jaw surgery to extend jaw. LEEP procedure Past Anesthesia/Blood Transfusion Reactions: No Reported Reaction Past Psychological History: No Psychological Hx Reported Smoking Status: Never smoker Past Alcohol Use History: Occasional Past Drug Use History: None Reported General Exam Limitations: altered mental status General appearance: alert, in no apparent distress Head exam: Present: atraumatic, normocephalic Eye exam: Present: normal appearance, PERRL ENT exam: Present: normal exam Neck exam: Present: normal inspection. Absent: tenderness, meningismus Respiratory exam: Present: normal lung sounds bilaterally. Absent: respiratory distress, wheezes, rales Cardiovascular Exam: Present: regular rate, normal rhythm GI/Abdominal exam: Present: soft. Absent: distended, tenderness, guarding Extremities exam: Present: normal inspection, normal capillary refill. Absent: pedal edema Neurological exam: Present: alert, oriented X3, CN II-XII intact. Absent: motor sensory deficit Psychiatric exam: Present: normal affect, normal mood Skin exam: Present: warm, dry, intact. Absent: cyanosis, diaphoretic Course Vital Signs 09/29/20 09/29/20 16:59 18:03 Temperature 97.8 F 97.8 F Pulse Rate 61 59 L Respiratory 18 18 Rate Blood Pressure 132/90 127/97 O2 Sat by Pulse 96 99 Oximetry EKG Findings - EKG Comments: EKG Findings:: EKG: Normal sinus rhythm, rate of 60, OR interval 164, QRS duration 84, QTC 432, no ST segment elevation Medical Decision Making - Medical Decision Making 49-year-old female presenting for evaluation of chest pain and dyspnea.\ EKG sinus rhythm without ST segment elevation. Chest x-ray is negative for focal pneumonia, no acute findings. Patient has normal CBC, normal CMP, n egative d-dimer, negative initial troponin. She will be kept in observation for serial cardiac enzymes, telemetry, echo, cardiology consultation. Case discussed with Dr. Mccormack who will admit. - Lab Data Result diagrams: 09/29/20 17:14 09/29/20 17:14 Lab Results 09/29/20 09/29/20 09/29/20 Range/Units 17:14 17:14 17:14 WBC 6.2 (3.8-10.6) k/uL RBC 5.01 (3.80-5.40) m/uL Hgb 15.1 (11.4-16.0) gm/dL Hct 43.9 (34.0-46.0) % MCV 87.6 (80.0-100.0) fL MCH 30.2 (25.0-35.0) pg MCHC 34.4 (31.0-37.0) g/dL RDW 12.5 (11.5-15.5) % Plt Count 247 (150-450) k/uL MPV 6.7 Neutrophils % 58 % Lymphocytes % 36 % Monocytes % 4 % Eosinophils % 1 % Basophils % 0 % Neutrophils # 3.6 (1.3-7.7) k/uL Lymphocytes # 2.2 (1.0-4.8) k/uL Monocytes # 0.3 (0-1.0) k/uL Eosinophils # 0.1 (0-0.7) k/uL Basophils # 0.0 (0-0.2) k/uL PT 10.7 (9.0-12.0) sec INR 1.0 (<1.2) APTT 27.2 (22.0-30.0) sec D-Dimer 0.30 (<0.60) mg/L FEU Sodium 140 (137-145) mmol/L Potassium 3.8 (3.5-5.1) mmol/L Chloride 103 (98-107) mmol/L Carbon Dioxide 27 (22-30) mmol/L Anion Gap 10 mmol/L BUN 16 (7-17) mg/dL Creatinine 0.72 (0.52-1.04) mg/dL Est GFR (CKD-EPI)AfAm >90 (>60 ml/min/1.73 sqM) Est GFR (CKD-EPI)NonAf >90 (>60 ml/min/1.73 sqM) Glucose 95 (74-99) mg/dL Plasma Lactic Acid Ramin (0.7-2.0) mmol/L Calcium 9.7 (8.4-10.2) mg/dL Magnesium 2.2 (1.6-2.3) mg/dL Total Bilirubin 0.6 (0.2-1.3) mg/dL AST 30 (14-36) U/L ALT 15 (4-34) U/L Alkaline Phosphatase 80 (38-126) U/L Troponin I (0.000-0.034) ng/mL NT-Pro-B Natriuret Pep pg/mL Total Protein 8.1 (6.3-8.2) g/dL Albumin 4.7 (3.5-5.0) g/dL 09/29/20 09/29/20 09/29/20 Range/Units 17:14 17:14 17:14 WBC (3.8-10.6) k/uL RBC (3.80-5.40) m/uL Hgb (11.4-16.0) gm/dL Hct (34.0-46.0) % MCV (80.0-100.0) fL MCH (25.0-35.0) pg MCHC (31.0-37.0) g/dL RDW (11.5-15.5) % Plt Count (150-450) k/uL MPV Neutrophils % % Lymphocytes % % Monocytes % % Eosinophils % % Basophils % % Neutrophils # (1.3-7.7) k/uL Lymphocytes # (1.0-4.8) k/uL Monocytes # (0-1.0) k/uL Eosinophils # (0-0.7) k/uL Basophils # (0-0.2) k/uL PT (9.0-12.0) sec INR (<1.2) APTT (22.0-30.0) sec D-Dimer (<0.60) mg/L FEU Sodium (137-145) mmol/L Potassium (3.5-5.1) mmol/L Chloride (98-107) mmol/L Carbon Dioxide (22-30) mmol/L Anion Gap mmol/L BUN (7-17) mg/dL Creatinine (0.52-1.04) mg/dL Est GFR (CKD-EPI)AfAm (>60 ml/min/1.73 sqM) Est GFR (CKD-EPI)NonAf (>60 ml/min/1.73 sqM) Glucose (74-99) mg/dL Plasma Lactic Acid Ramin 1.2 (0.7-2.0) mmol/L Calcium (8.4-10.2) mg/dL Magnesium (1.6-2.3) mg/dL Total Bilirubin (0.2-1.3) mg/dL AST (14-36) U/L ALT (4-34) U/L Alkaline Phosphatase (38-126) U/L Troponin I <0.012 (0.000-0.034) ng/mL NT-Pro-B Natriuret Pep 106 pg/mL Total Protein (6.3-8.2) g/dL Albumin (3.5-5.0) g/dL Disposition Clinical Impression: Chest pain Disposition: ADMITTED IP TO THIS [facility] Condition: Stable Is patient prescribed a controlled substance at d/c from ED?: No Referrals: Raymond Gallegos DO [Primary Care Provider] - 1-2 days Decision to Admit Reason: Admit from EC Decision Date: 09/29/20 Decision Time: 18:27
[2020-09-29] MEDS ORDERED: ASPIRIN 325 MG TAB PO STA (18:23)
[2020-09-29] MEDS ORDERED: NALOXONE 0.4 MG/ML 1 ML VIAL IV PRN (18:25)
[2020-09-29] MEDS ORDERED: LORATADINE 10 MG TAB PO PRN (21:36)
[2020-09-29] MEDS ORDERED: LORazepam 0.5 MG TAB PO PRN (21:36)
[2020-09-30 01:58] VITALS: RESP 16
[2020-09-30] MEDS: ACETAMINOPHEN TAB 325 MG TAB PO PRN ×2 (07:47→14:06)
[2020-09-30] MEDS ORDERED: ESCITALOPRAM 20 MG TAB PO SCH (09:00)
[2020-09-30] MEDS ORDERED: hydroCHLOROthiazide 25 MG TAB PO SCH (09:00)
--- NOTE | 2020-09-30 10:50 | P.CRDCN ---
History of Present Illness Consult date: 09/30/20 History of present illness: CHIEF COMPLAINT: Chest pain HISTORY OF PRESENT ILLNESS: This is a 49-year-old female with a past medical history significant for CVA, hypertension, hyperlipidemia, and right rotator cuff repair. 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 We have been asked to see the patient in consultation for chest pain. Patient examined this morning at the bedside. Patient states she initially presented to the hospital secondary to shortness of breath. Patient states she has been feeling short of breath for the past 3 weeks. She states she is short of breath at rest and also with exertion. She states that she is unable to lay flat or lay on her left side due to shortness of breath. She denies any cough or congestion. She is a nonsmoker. She reports having chest pain 2 days ago on the left part of her chest and the inner part of her left arm. She states it felt like somebody was sitting on her chest. She states there is nothing that made the pain at her. She currently denies any chest pain at rest. However she does report chest discomfort with deep inspiration and also palpation of left chest wall. Patient reports a history of coronary artery disease in her family and states her dad had a heart attack when he was in his 40s. Patient's mother also had a heart attack but patient is unsure of how old she was when this occurred. DIAGNOSTICS: EKG reveals sinus mechanism with no signs of acute ischemia Chest xray negative for acute process Laboratory data: WBC 6.2. Hemoglobin 15.1. Platelet count 247. D-dimer 0.30. Sodium 140. Potassium 3.8. BUN 16. Creatinine 0.72. Lactic acid 1.2. Troponin negative 3. BNP 106. Current home cardiac medications include hydrochlorothiazide 25 mg daily and Lipitor 10 mg daily REVIEW OF SYSTEMS: At the time of my exam: CONSTITUTIONAL: Denies fever or chills. HEENT: Denies blurred vision, vision changes, or eye pain. Denies hemoptysis CARDIOVASCULAR: Denies chest pain, orthopnea, PND or palpitations RESPIRATORY: Reports shortness of breath. GASTROINTESTINAL: Denies abdominal pain. Denies nausea or vomiting. HEMATOLOGIC: Denies bleeding disorders. GENITOURINARY: Denies any blood in urine. SKIN: Denies pruitis. Denies rash. PHYSICAL EXAM: VITAL SIGNS: Reviewed. GENERAL: Well-developed in no acute distress. HEENT: Head is normocephalic. Pupils are equal, round. Sclerae anicteric. Mucous membranes of the mouth are moist. Neck supple. No JVD or thyromegaly LUNGS: Respirations even and unlabored. Lungs essentially clear to auscultation bilaterally. HEART: Regular rate and rhythm. S1 and S2 heard. Tenderness with palpation of left chest wall. ABDOMEN: Soft. Nondistended. Nontender. EXTREMITIES: Normal range of motion. No clubbing or cyanosis. Peripheral pulses intact. No lower extremity edema NEUROLOGIC: Awake and alert. Oriented x 3. ASSESSMENT: Chest pain, atypical for angina, reproducible with deep inspiration and palpation. Troponin negative 3 Shortness of breath 3 weeks Hypertension Hyperlipidemia History of CVA History of premature coronary artery disease PLAN: Resume home cardiac medications Obtain 2-D echo to assess cardiac structure and function Patient to undergo stress echocardiogram today to assess for reversible ischemia If stress test is negative and echocardiogram does not reveal any significant abnormalities, patient may be discharged home today from a cardiac perspective Nurse practitioner note has been reviewed by physician. Signing provider agrees with the documented findings, assessment, and plan of care. Past Medical History Past Medical History: CVA/TIA, Hypertension, Pneumonia Additional Past Medical History / Comment(s): [place] december 02, 2017; bowel blockage, Fx clavicle 2020, fluid around spine, torn rotator , History of Any Multi-Drug Resistant Organisms: None Reported Past Surgical History: Ablation, Section Additional Past Surgical History / Comment(s): jaw surgery to extend jaw. LEEP procedure, rotator cuff repair, bicep repair, left knee arthroscopy, ganglian cy st removal on left middle finger Past Anesthesia/Blood Transfusion Reactions: No Reported Reaction Past Psychological History: No Psychological Hx Reported Smoking Status: Never smoker Past Alcohol Use History: Occasional Past Drug Use History: None Reported Medications and Allergies Home Medications Medication Instructions Recorded Confirmed Type Loratadine [Claritin] 10 mg PO DAILY PRN 01/09/14 09/29/20 History LORazepam [Ativan] 0.5 mg PO BID PRN 12/02/17 09/29/20 History hydroCHLOROthiazide [Hydrodiuril] 25 mg PO DAILY 12/02/17 09/29/20 History Escitalopram [Lexapro] 20 mg PO DAILY 10/01/18 09/29/20 History Atorvastatin [Lipitor] 10 mg PO HS 09/29/20 09/29/20 History Levothyroxine Sodium [Synthroid] 25 mcg PO HS 09/29/20 09/29/20 History Allergies Allergy/AdvReac Type Severity Reaction Status Date / Time clarithromycin [From Biaxin] Allergy Swelling Verified 09/29/20 17:30 erythromycin lactobionate Allergy Swelling Verified 09/29/20 17:30 [From Erythrocin] fexofenadine HCl Allergy Swelling Verified 09/29/20 17:30 [From Clara-D 12 Hour] Penicillins Allergy Dyspnea Verified 09/29/20 17:30 pseudoephedrine HCl Allergy Swelling Verified 09/29/20 17:30 [From Clara-D 12 Hour] Sulfa (Sulfonamide Allergy Unknown Verified 09/29/20 17:30 Antibiotics) Physical Exam Vitals: Vital Signs Temp Pulse Pulse Resp BP BP Pulse Ox 09/30/20 08:00 57 L 16 09/30/20 07:35 97.5 F L 57 L 16 124/81 100 09/30/20 01:58 97.7 F 58 L 16 125/82 94 L 09/29/20 20:00 97.6 F 56 L 18 142/87 99 09/29/20 19:45 97.8 F 59 L 18 133/94 99 09/29/20 19:20 18 133/94 99 09/29/20 18:03 97.8 F 59 L 18 127/97 99 09/29/20 16:59 97.8 F 61 18 132/90 96 Intake and Output 09/29/20 09/30/20 09/30/20 22:59 06:59 14:59 Intake Total 540 Balance 540 Intake: Oral 540 Other: Voiding Method Toilet Toilet # Voids 2 Weight 96.615 kg Results 09/29/20 17:14 09/29/20 17:14 Cardiac Enzymes 09/29/20 09/29/20 09/29/20 Range/Units 17:14 17:14 20:52 AST 30 (14-36) U/L Troponin I <0.012 <0.012 (0.000-0.034) ng/mL 09/30/20 Range/Units 00:07 AST (14-36) U/L Troponin I <0.012 (0.000-0.034) ng/mL Coagulation 09/29/20 Range/Units 17:14 PT 10.7 (9.0-12.0) sec APTT 27.2 (22.0-30.0) sec CBC 09/29/20 Range/Units 17:14 WBC 6.2 (3.8-10.6) k/uL RBC 5.01 (3.80-5.40) m/uL Hgb 15.1 (11.4-16.0) gm/dL Hct 43.9 (34.0-46.0) % Plt Count 247 (150-450) k/uL Comprehensive Metabolic Panel 09/29/20 Range/Units 17:14 Sodium 140 (137-145) mmol/L Potassium 3.8 (3.5-5.1) mmol/L Chloride 103 (98-107) mmol/L Carbon Dioxide 27 (22-30) mmol/L BUN 16 (7-17) mg/dL Creatinine 0.72 (0.52-1.04) mg/dL Glucose 95 (74-99) mg/dL Calcium 9.7 (8.4-10.2) mg/dL AST 30 (14-36) U/L ALT 15 (4-34) U/L Alkaline Phosphatase 80 (38-126) U/L Total Protein 8.1 (6.3-8.2) g/dL Albumin 4.7 (3.5-5.0) g/dL Current Medications Generic Name Dose Route Start Last Admin Trade Name Freq PRN Reason Stop Dose Admin Acetaminophen 650 mg 09/29/20 18:25 09/30/20 07:47 Acetaminophen Tab 325 Mg Tab PO 650 mg Q6HR PRN Administration Mild Pain or Fever > 100.5 Atorvastatin Calcium 10 mg 09/30/20 21:00 Atorvastatin 10 Mg Tab PO HS ESTUARDO Escitalopram Oxalate 20 mg 09/30/20 09:00 09/30/20 07:48 Escitalopram 20 Mg Tab PO 20 mg DAILY ESTUARDO Administration Hydrochlorothiazide 25 mg 09/30/20 09:00 09/30/20 07:48 Hydrochlorothiazide 25 Mg Tab PO 25 mg DAILY ESTUARDO Administration Levothyroxine Sodium 25 mcg 09/30/20 21:00 Levothyroxine 25 Mcg Tab PO HS ESTUARDO Loratadine 10 mg 09/29/20 21:36 Loratadine 10 Mg Tab PO DAILY PRN Allergy Symptoms Lorazepam 0.5 mg 09/29/20 21:36 Lorazepam 0.5 Mg Tab PO BID PRN Anxiety Naloxone HCl 0.2 mg 09/29/20 18:25 Naloxone 0.4 Mg/Ml 1 Ml Vial IV Q2M PRN Opioid Reversal Intake and Output 09/29/20 09/30/20 09/30/20 22:59 06:59 14:59 Intake Total 540 Balance 540 Intake: Oral 540 Other: Voiding Method Toilet Toilet # Voids 2 Weight 96.615 kg 09/29/20 17:14 09/29/20 17:14
[2020-09-30] MEDS ORDERED: RX INFO: IV CONTRAST WAS GIVEN 1 EACH MISC MISCELLANE PRN (11:52)
--- NOTE | 2020-09-30 13:12 | CT ---
EXAMINATION TYPE: CT angio chest DATE OF EXAM: 09/30/2020 COMPARISON: Chest x-ray same date, CT chest 10/23/2019 HISTORY: SOB CT DLP: 362.8 mGycm Automated exposure control for dose reduction was used. CONTRAST: CTA scan of the thorax is performed with IV Contrast, patient injected with 80 mL of Isovue 370, pulm onary embolism protocol. MIP images are created and reviewed. 3D reconstructed images are created o n an independent workstation and reviewed. FINDINGS: LUNGS: The lungs are grossly clear, there is no concerning parenchymal mass or nodule identified. T here is no pleural effusion or pneumothorax seen. The tracheobronchial tree is patent. AORTA: No additional significant abnormality is seen. MEDIASTINUM: There is satisfactory enhancement of the pulmonary artery and its branches, there is no CT evidence for pulmonary embolism. There are no greater than 1 cm hilar or mediastinal lymph nodes. There is a pericardial effusion present adjacent to minimal coronary artery calcification. The right heart border measuring approximately 13 mm in thickness anteriorly. OTHER: There is hiatal hernia. Sclerosis present in the medial aspect of the right clavicle with shaun e associated spurring, geode formation at the sternoclavicular joint likely due to osteoarthritic brando nge IMPRESSION: THERE IS NO PULMONARY EMBOLISM. HIATAL HERNIA. MILD CORONARY ARTERY DISEASE, PERICARDIAL EFFUSION. Ad ditional findings above.
[2020-09-30 14:18] VITALS: BP 129/84; PULSE 79; TEMP 97.7
[2020-09-30] MEDS ORDERED: ATORVASTATIN 10 MG TAB PO SCH (21:00)
[2020-09-30] MEDS ORDERED: LEVOTHYROXINE 25 MCG TAB PO SCH (21:00)
--- NOTE | 2020-09-30 23:28 | P.HPIM ---
History of Present Illness H&P Date: 09/30/20 Chief Complaint: Short of breath History of presenting complaint: This is a [address] Gallegos. Chronic stable medical conditions include hypertension, hypothyroid, hyperlipidemia, depression and anxiety. Patient states he suffered a fall over a year ago. And she has been short of breath all year. Became more so before [place]. She does have some orth opnea. No lower extremity edema. No fever no chills. Appetite is plus minus. No loss of weight. Normally has one or 2 bowel movements a week. Sometimes lightheaded. Symptoms have been coming on for quite some time. Review of systems: GEN.: Tired EYES: None HEENT: None NECK: None RESPIRATORY: As above CARDIOVASCULAR: As above GASTROINTESTINAL: None GENITOURINARY: None MUSCULOSKELETAL: None LYMPHATICS: None HEMATOLOGICAL: None PSYCHIATRY: Slightly anxious NEUROLOGICAL: None Past medical history to include: Hypertension, hyperlipidemia, hypothyroid, depression, anxiety fractured clavi vinny. Download data. Social history: . Has 2 children at home. Is on disability secondary to fall. No smoking. Alcohol occasional. Family history: Reviewed, noncontributory to presentation Physical examination: VITAL SIGNS: 97.8, 61, 18, 132/90, 96% room air GENERAL: BMI 31.5, declining alert, slightly anxious. EYES: Pupils equal. Conjunctiva normal. HEENT: External appearance of nose and ears normal, oral cavity grossly normal. NECK: JVD not raised; masses not palpable. HEART: First and second heart sounds are normal; no edema. LUNGS: Respiratory rate normal; clear to auscultation. ABDOMEN: Soft, nontender, liver spleen not palpable, no masses palpable. PSYCH: Alert and oriented x3; mood and affect anxiousl. NEUROLOGICAL: Cranial nerves grossly intact; no facial asymmetry, power and sensation grossly intact. LYMPHATICS: No lymph nodes palpable in the axilla and neck INVESTIGATIONS, reviewed in the clinical context: White count 6.2 hemoglobin 15.1 platelets 247 potassium 3.8 creatinine 0.7 to Troponin I 3 negative ProBNP 106 EKG tracing personally reviewed by me-normal sinus rhythm Chest x-ray film personally reviewed by me-lung marquez clear Assessment: -This patient presented March extremity symptoms including nonspecific chest pain. -Essential hypertension -Hypothyroidism -Hyperlipidemia -Depression and anxiety not otherwise specified -Obesity BMI 31.5 Plan: Cartilage was consulted. They ordered a stress echocardiogram. I also ordered a computed tomography scan of the chest to rule out PE. Care was discussed with the patient. Past Medical History Past Medical History: CVA/TIA, Hypertension, Pneumonia Additional Past Medical History / Comment(s): [place] december 02, 2017; bowel bl ockage, Fx clavicle 2020, fluid around spine, torn rotator , History of Any Multi-Drug Resistant Organisms: None Reported Past Surgical History: Ablation, Section Additional Past Surgical History / Comment(s): jaw surgery to extend jaw. LEEP procedure, rotator cuff repair, bicep repair, left knee arthroscopy, ganglian cyst removal on left middle finger Past Anesthesia/Blood Transfusion Reactions: No Reported Reaction Past Psychological History: No Psychological Hx Reported Smoking Status: Never smoker Past Alcohol Use History: Occasional Past Drug Use History: None Reported Medications and Allergies Home Medications Medication Instructions Recorded Confirmed Type Loratadine [Claritin] 10 mg PO DAILY PRN 01/09/14 09/29/20 History LORazepam [Ativan] 0.5 mg PO BID PRN 12/02/17 09/29/20 History hydroCHLOROthiazide [Hydrodiuril] 25 mg PO DAILY 12/02/17 09/29/20 History Escitalopram [Lexapro] 20 mg PO DAILY 10/01/18 09/29/20 History Atorvastatin [Lipitor] 10 mg PO HS 09/29/20 09/29/20 History Levothyroxine Sodium [Synthroid] 25 mcg PO HS 09/29/20 09/29/20 History Acetaminophen Tab [Tylenol] 650 mg PO Q6HR PRN tab 09/30/20 Rx Allergies Allergy/AdvReac Type Severity Reaction Status Date / Time clarithromycin [From Biaxin] Allergy Swelling Verified 09/29/20 17:30 erythromycin lactobionate Allergy Swelling Verified 09/29/20 17:30 [From Erythrocin] fexofenadine HCl Allergy Swelling Verified 09/29/20 17:30 [From Clara-D 12 Hour] Penicillins Allergy Dyspnea Verified 09/29/20 17:30 pseudoephedrine HCl Allergy Swelling Verified 09/29/20 17:30 [From Clara-D 12 Hour] Sulfa (Sulfonamide Allergy Unknown Verified 09/29/20 17:30 Antibiotics) Physical Exam Vitals: Vital Signs Temp Pulse Pulse Resp BP BP Pulse Ox 09/30/20 08:00 57 L 16 09/30/20 07:35 97.5 F L 57 L 16 124/81 100 09/30/20 01:58 97.7 F 58 L 16 125/82 94 L 09/29/20 20:00 97.6 F 56 L 18 142/87 99 09/29/20 19:45 97.8 F 59 L 18 133/94 99 09/29/20 19:20 18 133/94 99 09/29/20 18:03 97.8 F 59 L 18 127/97 99 09/29/20 16:59 97.8 F 61 18 132/90 96 Intake and Output 09/29/20 09/30/20 09/30/20 22:59 06:59 14:59 Intake Total 540 Balance 540 Intake: Oral 540 Other: Voiding Method Toilet Toilet # Voids 2 Weight 96.615 kg Results CBC & Chem 7: 09/29/20 17:14 09/29/20 17:14 Thrombosis Risk Factor Assmnt - Choose All That Apply Any of the Below Risk Factors Present?: Yes Each Factor Represents 1 point: Age 41-60 years, Obesity (BMI >25) Other Risk Factors: No Other congenital or acquired thrombophilia - If yes, enter type in comment: No Thrombosis Risk Factor Assessment Total Risk Factor Score: 2 Thrombosis Risk Factor Assessment Level: Low Risk
--- NOTE | 2020-09-30 23:33 | P.DS ---
Providers Date of admission: 09/29/20 18:25 Expected date of discharge: 09/30/20 Attending physician: Magdiel Mccormack Consults: 09/29/20 18:25 Consult Physician Routine Consulting Provider: Mello Kaba Consult Reason/Comments: CP Do you want consulting provider notified?: Yes Primary care physician: [facility] Course: Chief Complaint: Short of breath History of presenting complaint: This is a [address] Gallegos. Chronic stable medical conditions include hypertension, hypothyroid, hyperlipidemia, depression and anxiety. Patient states he suffered a fall over a year ago. And she has been short of breath all year. Became more so before [place]. She does have some orthopnea. No lower extremity edema. No fever no chills. Appetite is plus minus. No loss of weight. Normally has one or 2 bowel movements a week. Sometimes lightheaded. Symptoms have been coming on for quite some time. Chest CTA-shows some pericardial effusion. Hiatal hernia. No PE. Stress echocardiogram-moderate concentric LVH, EF 55-60%. Labs obtained from Dr. mullen office showed thyroid function to be borderline normal. Prolapse the patient follow with Dr. Rahman from endocrinology regarding her thyroid functions. Patient concerned about her breathing . We'll have the patient follow-up with pulmonary and cardiology. As outpatient. Consultation: Dr. Stephen from cardiology Past medical history to include: Hypertension, hyperlipidemia, hypothyroid, depression, anxiety fractured clavicle. Download data. Social history: . Has 2 children at home. Is on disability secondary to fall. No smoking. Alcohol occasional. Family history: Reviewed, noncontributory to presentation Physical examination: VITAL SIGNS: 97.6, 61, 18, 142/87, 99% room air GENERAL: BMI 31.5, laying in bed, slightly anxious. EYES: Pupils equal. Conjunctiva normal. HEENT: External appearance of nose and ears normal, oral cavity grossly normal. NECK: JVD not raised; masses not palpable. HEART: First and second heart sounds are normal; no edema. LUNGS: Respiratory rate normal; clear to auscultation. ABDOMEN: Soft, nontender, liver spleen not palpable, no masses palpable. PSYCH: Alert and oriented x3; mood and affect anxiousl. INVESTIGATIONS, reviewed in the clinical context: White count 6.2 hemoglobin 15.1 platelets 247 potassium 3.8 creatinine 0.7 to Troponin I 3 negative ProBNP 106 EKG tracing personally reviewed by me-normal sinus rhythm Chest x-ray film personally reviewed by me-lung marquez clear Chest CTA-some pericardial effusion, hiatal hernia, no PE, Stress echocardiogram-negative for ischemia Assessment: -Possibly psychosomatic symptoms. -Essential hypertension -Hypothyroidism -Hyperlipidemia -Depression and anxiety not otherwise specified -Obesity BMI 31.5 -Undefined pericardial effusion. Follow-up with cardiology Disposition: Home Patient Condition at Discharge: Stable Plan - Discharge Summary Discharge Rx Participant: No New Discharge Prescriptions: New Acetaminophen Tab [Tylenol] 650 mg PO Q6HR PRN tab PRN Reason: Mild Pain Or Fever > 100.5 Continue Loratadine [Claritin] 10 mg PO DAILY PRN PRN Reason: Allergy Symptoms hydroCHLOROthiazide [Hydrodiuril] 25 mg PO DAILY LORazepam [Ativan] 0.5 mg PO BID PRN PRN Reason: Anxiety Escitalopram [Lexapro] 20 mg PO DAILY Atorvastatin [Lipitor] 10 mg PO HS No Action Levothyroxine Sodium [Synthroid] 25 mcg PO HS Discharge Medication List Loratadine [Claritin] 10 mg PO DAILY PRN 01/09/14 [History] LORazepam [Ativan] 0.5 mg PO BID PRN 12/02/17 [History] hydroCHLOROthiazide [Hydrodiuril] 25 mg PO DAILY 12/02/17 [History] Escitalopram [Lexapro] 20 mg PO DAILY 10/01/18 [History] Atorvastatin [Lipitor] 10 mg PO HS 09/29/20 [History] Levothyroxine Sodium [Synthroid] 25 mcg PO HS 09/29/20 [History] Acetaminophen Tab [Tylenol] 650 mg PO Q6HR PRN tab 09/30/20 [Rx] Follow up Appointment(s)/Referral(s): Lacey Caro MD [STAFF PHYSICIAN] - 1 Week (sob ) Ezekiel Stephen MD [STAFF PHYSICIAN] - 1 Week Raymond Gallegos DO [Primary Care Provider] - 1-2 days Rebecca Rahman MD [STAFF PHYSICIAN] - 1 Week (abnormal TFT)
--- NOTE | 2020-10-01 11:20 | ECHOF ---
Referral Reason:chest pain MEASUREMENTS -------- HEIGHT: 175.3 cm WEIGHT: 96.6 kg BP: RVIDd: 2.7 cm (< 3.3) IVSd: 1.5 cm (0.6 - 1.1) LVIDd: 2.6 cm (3.9 - 5.3) LVPWd: 1.4 cm (0.6 - 1.1) IVSs: 1.9 cm LVIDs: 1.7 cm LVPWs: 1.9 cm LAESV Index (A-L): 16.04 ml/m Ao Diam: 2.3 cm (2.0 - 3.7) AV Cusp: 1.7 cm (1.5 - 2.6) LA Diam: 3.4 cm (2.7 - 3.8) MV EXCURSION: 13.536 mm (> 18.000) MV EF SLOPE: 55 mm/s (70 - 150) EPSS: 0.3 cm MV E Chauncey: 0.75 m/s MV DecT: 269 ms MV A Chauncey: 0.70 m/s MV E/A Ratio: 1.08 RAP: 5.00 mmHg RVSP: 13.09 mmHg FINDINGS -------- Sinus rhythm. This was a technically adequate study. The left ventricular size is normal. There is moderate concentric left ventricular hypertrophy. O verall left ventricular systolic function is normal with, an EF between 55 - 60 %. The diastolic fi lling pattern is normal for the age of the patient 13.90. The right ventricle is normal in size. Normal LA size by volume 22+/-6 ml/m2. The right atrial size is normal. The aortic valve is trileaflet, and appears structurally normal. No aortic stenosis or regurgitation. The mitral valve is normal. Mild mitral regurgitation is present. The tricuspid valve appears structurally normal. Mild tricuspid regurgitation present. Right vent ricular systolic pressure is normal at < 35 mmHg. There is no pulmonic regurgitation present. The aortic root size is normal. Normal inferior vena cava with normal inspiratory collapse consistent with estimated right atrial pre ssure of 5 mmHg. There is no pericardial effusion. CONCLUSIONS -------- 1. There is moderate concentric left ventricular hypertrophy. 2. Overall left ventricular systolic function is normal with, an EF between 55 - 60 %. 3. Normal LA size by volume 22+/-6 ml/m2. 4. The aortic valve is trileaflet, and appears structurally normal. No aortic stenosis or regurgitati on. 5. Mild mitral regurgitation is present. 6. Mild tricuspid regurgitation present. 7. There is no pericardial effusion. DIRECTOR OF GROUP COUNSELING PROGRAM: Rosalie Maki RDCS
--- NOTE | 2020-10-07 09:31 | P.STRESS ---
- Stress Test Note Stress Test Results/Findings: Exam Performed: stress echo exercise Exam Date: 09/30/20 Reason for Exam: chest pain Height: 5 ft 9 in Weight: 96.615 kg Protocol: fior stress echo Stage: III Duration of Exercise: 8:15 Resting Heart Rate: 63 Resting Blood Pressure: 131/90 Maximum Achieved Heart Rate: 158 Maximum Achieved Blood Pressure: 198/113 85% PMHR: 145 100% PMHR: 170 METS: 9.7 Technologist Comment: Stress Test Results/Findings: This is a 49-year-old female with history of hypertension, hypercholesteremia, CVA being evaluated for symptoms of chest pain and shortness of breath. Stress data: Baseline EKG showed sinus rhythm with mild diffuse ST-T abnormalities. Blood pressure at rest is 130/90 with pulse rate of 63. Patient walked on the Fior protocol for 8 minutes and 15 seconds achieving a maximum heart rate of 158 with a blood pressure 198 113. EKGs taken during and after exercise showed some J-point depression with upsloping segment which are not suggestive of ischemia. Echo data: Baseline echo images show normal wall motion and thickening. Exercise echo images showed augmentation of wall motion and thickening in all the segments. Final impression: #1. Negative stress test #2. Negative stress echo.
== END 2020-09-30 15:26 | disposition home or self-care (01) ==
LOC: EC 16:12 → 6NMEDSUR 18:25
PROVIDERS: ADMIT Hospitalist; ATTEND Hospitalist
DX: R07.89 Other chest pain (principal); E03.9 Hypothyroidism, unspecified; E66.9 Obesity, unspecified; I31.3 Pericardial effusion (noninflammatory); E78.5 Hyperlipidemia, unspecified; F32.9 Major depressive disorder, single episode, unspecified; F41.9 Anxiety disorder, unspecified; I10 Essential (primary) hypertension; I25.10 Atherosclerotic heart disease of native coronary artery without angina pectoris; K44.9 Diaphragmatic hernia without obstruction or gangrene; Z68.31 Body mass index [BMI] 31.0-31.9, adult; Z79.890 Hormone replacement therapy; Z79.899 Other long term (current) drug therapy; Z82.49 Family history of ischemic heart disease and other diseases of the circulatory system; Z86.73 Personal history of transient ischemic attack (TIA), and cerebral infarction without residual deficits
CPT/HCPCS: 99285; 93005 ×2; 36415; 93306; 93351; 85379; 83880; 80053; 83605; 83735; 84484 ×2; 85025; 85610; 85730; 71046; 71275; G0378 ×2; Q9967

== ENCOUNTER → 2020-11-10 | Outpatient (CLI) | payer BC ==
--- NOTE | 2020-11-10 13:49 | CONS ---
CONSULTATION DATE OF SERVICE: 11/10/2020 This 50-year-old lady had been [facility] for possible obstructive sleep apnea-hypopnea syndrome. HISTORY OF PRESENT ILLNESS/SLEEP-WAKE EVALUATION: Patient usual sleep schedule from 10 p.m. to 6:30 a.m. Usually no problem with falling asleep, although has TV in bedroom. She sleeps in different positions. She snores and wakes up from sleep 3 times with episodes of nocturia. No history of hypnagogic hallucinations, sleep paralysis or cataplexy. During the day, patient feels sleepiness. Jessie Sleepiness Scale increased to 11. The patient takes one nap at noon time. Usually does not feel refreshed after nap. No vivid dreams during nap. PAST MEDICAL HISTORY: Hypertension, hyperlipidemia, stroke 2 years ago with numbness of left side of her body without residual deficit, depression. PAST SURGICAL HISTORY: Jaw advancement surgery in 1992, LEEP procedure in 2004, C-sections, rotator cuff surgery in 2019, left knee arthroscopic surgery in 2014. REVIEW OF SYSTEMS: Awakenings from sleep, sleepiness during the day. The patient sleeps by herself. No clear information about breathing during sleep. FAMILY HISTORY: Heart problems, diabetes, acid reflux. PHYSICAL EXAMINATION: GENERAL: lady without distress. VITAL SIGNS: BP 126/86, HR 64, RR 18, height 5 feet 9-1/2 inches, weight 220 pounds, temperature 98.7, oxygen saturation at room air 100%. HEENT: PERRLA, EOMI. Oropharynx low position of soft palate. Mallampati 4. NECK: 14-1/2 inches in circumference. LUNGS: Clear to percussion and to auscultation. Good air exchange. No wheezing or rhonchi. HEART: S1, S2 regular. No murmurs, gallops, or rubs. ABDOMEN: Soft and nontender. Bowel sounds are present. No organomegaly appreciated. EXTREMITIES: No clubbing or cyanosis. MOTOR DRIVER: Awake, alert, and oriented X3. Cranial nerves 2 to 7 intact. There is no fasciculation or atrophy. noted. No focal deficits observed. IMPRESSION: 1. Snoring, awakenings from sleep with episodes of nocturia, excessive daytime sleepiness. Jessie Sleepiness Scale 11. Possible obstructive sleep apnea- hypopnea syndrome. 2. Hypertension. 3. Obesity, body mass index 32. 4. Hyperlipidemia. 5. History of stroke 2 years ago. 6. History of depression. 7. Status post mandible advancement surgery in 1992. 8. Status post LEEP procedure. 9. Status post . 10.Status post rotator cuff surgery in 2019. 11.Status post left knee arthroscopic surgery in 2014. PLAN: 1. Home sleep apnea test for evaluation of patient breathing during sleep. 2. CPAP/BiPAP titration if sleep study confirms obstructive sleep apnea-hypopnea syndrome. 3. Preferable position during sleep on the side. 4. No driving if patient feels any sleepiness. 5. I will see patient for follow up visit to explain results of testing and following plan. Thank you very much for referring this patient for consultation. Sincerely, Christian Hirsch MD, PhD, FAASM Diplomat of [employer] [facility] MMODL / NISAN: [id number] /
== END ==
LOC: SLEEP 11:44
PROVIDERS: ATTEND Internal Medicine
DX: G47.10 Hypersomnia, unspecified (principal); I10 Essential (primary) hypertension; E66.9 Obesity, unspecified; Z68.32 Body mass index [BMI] 32.0-32.9, adult; E78.5 Hyperlipidemia, unspecified; Z86.73 Personal history of transient ischemic attack (TIA), and cerebral infarction without residual deficits; Z86.79 Personal history of other diseases of the circulatory system; Z98.890 Other specified postprocedural states; Z87.828 Personal history of other (healed) physical injury and trauma
CPT/HCPCS: 99211

== ENCOUNTER → 2020-11-12 | Outpatient (CLI) | payer BC ==
[2020-11-12 16:37] LABS: Prolactin 5.4 ng/mL (2.8-29.2); T4, Free (Free Thyroxine) 1.1 ng/dL (0.80-1.80)
[2020-11-12 17:49] LABS: Thyroid Peroxidase Antibodies <28.0 U/mL (0.0-60.0)
[2020-11-15 20:16] LABS: ACTH 8.79 pg/mL (0.00-45.99)
== END | disposition home or self-care (01) ==
LOC: LABWHC1 08:59
PROVIDERS: ATTEND Internal Medicine Endocrinology, Diabetes & Metabolism
DX: R53.83 Other fatigue (principal)
CPT/HCPCS: 36415; 82024; 82533; 82607; 84146; 84439; 84443; 84481; 86376; 86800

== ENCOUNTER 2020-11-17 12:58 | Day surgery (SDC) | payer BC ==
[2020-10-28 17:55] VITALS: BMI 31.4
[~2020-11-17 12:58] MED LIST changes: -DEXAMETHASONE SOD PHOSPHATE 10 MG/ML 1 ML VIAL IV ONE; +LACTATED RINGERS 1,000 ML IV SCH; +LIDOCAINE 1% (10MG/ML) FOR IV START INTRADERMA PRN; -LIDOCAINE 1% 20 ML VIAL (10MG/ML) FOR IV START INTRADERMA PRN; -MIDAZOLAM (PF) 2 MG/2 ML VIAL IV PRN; -ONDANSETRON 4 MG/2 ML VIAL IVP ONE; -Pre Op ABX Message 1 EACH MISC MISCELLANE ONE; -fentaNYL (PF) 50 MCG/ML 2 ML AMP IV PRN
[2020-11-17 13:47] VITALS: TEMP 97.6
[2020-11-17] MEDS ORDERED: ONDANSETRON 4 MG/2 ML VIAL ONE (13:47)
[2020-11-17] MEDS ORDERED: MIDAZOLAM 2 MG/2 ML VIAL ONE (14:39)
[2020-11-17] MEDS ORDERED: KETAMINE 10 MG/ML 20 ML VIAL ONE (14:39)
[2020-11-17] MEDS ORDERED: fentaNYL (PF) 50 MCG/ML 2 ML AMP ONE (14:39)
[2020-11-17] MEDS ORDERED: PROPOFOL 10 MG/ML 20 ML VIAL IV ONE (14:39)
[2020-11-17] MEDS ORDERED: LIDOCAINE 1% INJ 10MG/ML (20 ML MDV) ONE (14:39)
[2020-11-17] MEDS ORDERED: SODIUM CHLORIDE 0.9% 100 ML with CLINDAMYCIN 600 MG IV ONE ×2 (14:52)
[2020-11-17] MEDS ORDERED: BUPIVACAINE (PF) 0.25% 30 ML VIAL SQ ONE ×2 (14:53→15:04)
--- NOTE | 2020-11-17 15:54 | P.OP ---
Date of Procedure: 11/17/20 Preoperative Diagnosis: Hallux limitus right foot Postoperative Diagnosis: Same Procedure(s) Performed: Woods bunionectomy right foot Anesthesia: MAC Surgeon: Tripp Ramires Operative Findings: Unremarkable Description of Procedure: Date of surgery the patient was taken operating room in good condition placed on the operating table supine position where an IV was started and adequate IV anesthetic agents were utilized anesthesia was then further supplemented approximately 12 mL of 0.25% plain Marcaine given in a Crain type block to the first ray complex of the patient's right foot. The patient's right foot was then prepped and draped in usual aseptic manner and over heavy web roll padding an ankle tourniquet was placed above the malleoli of the patient's right ankle the patient's right foot and ankle were then elevated and exsanguinated of blood and after approximately 1 minutes. A time the ankle tourniquet to the patient's right ankle was inflated to 250 mmHg At this time attention was directed to the dorsal aspect of the first metatarsal phalangeal joint where an approximately 6 cm dorsal linear incision was made the incision was deepened via sharp dissection down through the level of the subcutaneous tissue layers. All neurovascular structures encountered were identified isolated and were retracted and any bleeding vessels were then clamped electrocauterized. Throughout the surgical procedure copious amounts sterile saline solution was used to irrigate the surgical site. Dissection was then carried deep down to level Periosteal Structures Overlying the Dorsal and the Medial Side of the First Metatarsal Phalangeal Joint These Were Incised in Line with the Original Skin Incision and Underscored and Retracted from the Un derlying Bone Flap Was Created by Dissecting the Periosteum from the Medial Side of the Base of the Proximal Phalanx. At This Time Utilizing Oscillating Bone Saw the Hyperostosis Present on the Dorsal and the Medial Side of the First Metatarsal Head Was Resected Flush in Line with the Shaft of the First Metatarsal Head and Removed in Total from the Surgical Site. The Oscillating Bone Saw Was Then Used Creating Dorsal to Plantar Osteotomy Approximately Centimeter Distal to the Metatarsal Phalangeal Joint and the Base of the Proximal Phalanx Was Removed in Total from the Surgical Site the Flap Created by Dissecting the Periosteum from the Medial Side of the Proximal Phalanx Was Then Sutured to the Lateral Side of the First Metatarsal Phalangeal Joint Utilizing 2-0 Vicryl Simple Interrupted Suture the Remaining Capsule Was Then Closed Utilizing 2-0 Vicryl Simple Interrupted Suture the Subcutaneous Tissue Layers Were Coaptated and Maintained Utilizing 3-0 Vicryl Simple Interrupted Suture the Skin Was Then Closed Utilizing Continuous Lock Suture with 4-0 Nylon Adaptic Kerlix Fluffs Four-Inch Conformer 4 Inch Coban Was Used To Form a Compression Dressing and the Ankle Tourniquet to the Patient's Right Ankle Was Deflated Adequate Hemostatic Return Was Seen in All Digits the Patient's Right Foot. The Patient Tolerated the Surgery and Anesthesia Well Was Taken Recovery Room in Good Postoperative Condition.
[2020-11-17 16:03] VITALS: RESP 18
[2020-11-17 16:12] VITALS: BP 134/79; PULSE 57
== END 2020-11-17 17:00 | disposition home or self-care (01) ==
LOC: OR 12:58
PROVIDERS: ATTEND Podiatrist Foot & Ankle Surgery
DX: M20.5X1 Other deformities of toe(s) (acquired), right foot (principal); M21.611 Bunion of right foot; F41.9 Anxiety disorder, unspecified; E03.9 Hypothyroidism, unspecified; F32.9 Major depressive disorder, single episode, unspecified; Z86.73 Personal history of transient ischemic attack (TIA), and cerebral infarction without residual deficits; Z79.899 Other long term (current) drug therapy; Z79.890 Hormone replacement therapy; Z88.8 Allergy status to other drugs, medicaments and biological substances; Z88.1 Allergy status to other antibiotic agents; Z88.0 Allergy status to penicillin; Z88.2 Allergy status to sulfonamides; Z98.890 Other specified postprocedural states; Z83.3 Family history of diabetes mellitus; Z82.49 Family history of ischemic heart disease and other diseases of the circulatory system
CPT/HCPCS: 81025; 88304; 88311; 28289; J2250; J2405; J2001; J3010; J2704

== ENCOUNTER → 2020-12-30 | Outpatient (CLI) | payer BC ==
--- NOTE | 2020-12-30 08:34 | CT ---
EXAMINATION TYPE: CT chest wo con DATE OF EXAM: 12/30/2020 COMPARISON: Prior chest CTs September 30, 2020 and October 23, 2019 HISTORY: SOB CT DLP: 351.2 mGycm. Automated Exposure Control for Dose Reduction was Utilized. TECHNIQUE: CT scan of the thorax is performed without IV contrast. FINDINGS: LUNGS: Focal linear scarring left lung base axial image 45 is redemonstrated. Otherwise lungs remai n clear. No suspicious new pulmonary nodules or masses There is no pleural effusion or pneumothorax s een. The tracheobronchial tree is patent. MEDIASTINUM: Lack of IV contrast is noted to limit evaluation for mediastinal and especially hilar ad enopathy. There are no definitive new greater than 1 cm hilar or mediastinal lymph nodes. Small to ti ny pericardial effusion anterior inferior aspect axial image 44 is not significantly changed from mos t recent CT. No cardiomegaly. Focal coronary artery calcification at the origin of LAD axial image 29 is redemonstrated OTHER: Stable small size hiatal hernia. Small splenules in the inferior splenic hilum redemonstrated. Mild to moderate multilevel anterior spurring in the spine. IMPRESSION: No acute pulmonary process. No significant change from prior studies.
== END | disposition home or self-care (01) ==
LOC: RADCTMAIN 08:04
PROVIDERS: ATTEND Internal Medicine
DX: R06.02 Shortness of breath (principal)
CPT/HCPCS: 71250

== ENCOUNTER 2021-11-30 09:13 | Emergency (ER) | payer BC ==
[2021-11-30 09:17] VITALS: TEMP 97.1
[2021-11-30] MEDS ORDERED: SODIUM CHLORIDE 0.9% 1,000 ML IV STA (10:12)
[2021-11-30] MEDS ORDERED: METOCLOPRAMIDE 5 MG/ML 2 ML VIAL IVP STA (10:14)
[2021-11-30] MEDS ORDERED: MECLIZINE 12.5 MG TAB PO STA (10:24)
--- NOTE | 2021-11-30 10:28 | ED ---
General Adult HPI - General Chief complaint: Headache Stated complaint: Dizziness/Nausea Time Seen by Provider: 11/30/21 10:00 Source: patient, family Mode of arrival: wheelchair Limitations: no limitations - History of Present Illness Initial comments: This 51-year-old female presents emergency Department with dizziness and headache that began at 4:30 AM. Patient states she was woken out of her sleep with nausea and when she stood up to use the bathroom she instantly felt like she was spinning. Patient states that at times she began to have the headache in the posterior right side of her head that has slowly been progressing. Patient denies any visual changes, blurred, double or loss of vision. Patient denies this being the worse headache of her life and states the pain is 7/10. Patient denies having migraine headaches in her past. Patient denies having frequent dizziness. Patient states she did try to take ibuprofen which did slightly help her headache. Patient states both the spinning and headache are worse when she looks up or lies flat. Patient denies any visual changes, fever, vomiting or neck pain. Patient denies any chest pain, shortness of breath, abdominal pain, hemoptysis, double/blurred vision lightheaded, change in bowel or bladder, change in appetite. - Related Data Home Medications Medication Instructions Recorded Confirmed Loratadine [Claritin] 10 mg PO DAILY PRN 01/09/14 11/15/20 LORazepam [Ativan] 0.5 mg PO BID PRN 12/02/17 11/15/20 hydroCHLOROthiazide [Hydrodiuril] 25 mg PO DAILY 12/02/17 11/15/20 Escitalopram [Lexapro] 20 mg PO DAILY 10/01/18 11/15/20 Atorvastatin [Lipitor] 10 mg PO HS 09/29/20 11/15/20 Levothyroxine Sodium [Synthroid] 25 mcg PO HS 09/29/20 11/15/20 Ibuprofen [Motrin] 800 mg PO Q8H PRN 10/28/20 11/15/20 Potassium Chloride [Klor-Con 10] 10 meq PO DAILY 10/28/20 11/15/20 Albuterol Inhaler [Ventolin Hfa 2 puff INHALATION Q4H PRN 11/15/20 11/15/20 Inhaler] Allergies Allergy/AdvReac Type Severity Reaction Status Date / Time clarithromycin [From Biaxin] Allergy Swelling Verified 11/30/21 09:17 erythromycin lactobionate Allergy Swelling Verified 11/30/21 09:17 [From Erythrocin] fexofenadine HCl Allergy Swelling Verified 11/30/21 09:17 [From Clara-D 12 Hour] Penicillins Allergy Dyspnea Verified 11/30/21 09:17 pseudoephedrine HCl Allergy Swelling Verified 11/30/21 09:17 [From Clara-D 12 Hour] Sulfa (Sulfonamide Allergy Unknown Verified 11/30/21 09:17 Antibiotics) Review of Systems ROS Statement: Those systems with pertinent positive or pertinent negative responses have been documented in the HPI. ROS Other: All systems not noted in ROS Statement are negative. Past Medical History Past Medical History: Cancer, CVA/TIA, Hypertension, Pneumonia, Thyroid Disorder Additional Past Medical History / Comment(s): TIA 2017-no residual effects, Fx right clavicle & injured shoulder 2019 after a fall, still w/pain, cervical cancer several years ago, pneumonia several years ago, recent admission here for SOB that has been frequent for a while per pt., states still not sure what is causing it, recent stress & echo wnl per pt. History of Any Multi-Drug Resistant Organisms: None Reported Past Surgical History: Section, Orthopedic Surgery, Uterine Ablation Additional Past Surgical History / Comment(s): jaw surgery to extend jaw- titanium screws in jaw,. LEEP procedure, rotator cuff repair, bicep repair, left knee arthroscopy, ganglian cyst removal on left middle finger Past Anesthesia/Blood Transfusion Reactions: No Reported Reaction Past Psychological History: No Psychological Hx Reported Smoking Status: Never smoker Past Alcohol Use History: None Reported Past Drug Use History: None Reported General Exam Limitations: no limitations General appearance: alert, in no apparent distress Head exam: Present: atraumatic, normocephalic, normal inspection Eye exam: Present: normal appearance, PERRL, EOMI. Absent: scleral icterus, conjunctival injection, periorbital swelling ENT exam: Present: normal exam, mucous membranes moist Neck exam: Present: normal inspection, full ROM. Absent: tenderness, meningismus, lymphadenopathy Respiratory exam: Present: normal lung sounds bilaterally. Absent: respiratory distress, wheezes, rales, rhonchi, stridor, chest wall tenderness Cardiovascular Exam: Present: regular rate, normal rhythm, normal heart sounds. Absent: systolic murmur, diastolic murmur, rubs, gallop, clicks GI/Abdominal exam: Present: soft, normal bowel sounds. Absent: distended, tenderness, guarding, rebound, rigid Extremities exam: Present: normal inspection, full ROM, normal capillary refill. Absent: tenderness, pedal edema, joint swelling, calf tenderness Back exam: Present: normal inspection, full ROM. Absent: CVA tenderness (R), CVA tenderness (L), paraspinal tenderness, vertebral tenderness Neurological exam: Present: alert, oriented X3, CN II-XII intact, normal gait. Absent: motor sensory deficit Psychiatric exam: Present: normal affect, normal mood Skin exam: Present: warm, dry, intact, normal color. Absent: rash Course Vital Signs 11/30/21 09:14 Temperature 97.1 F L Pulse Rate 63 Respiratory 18 Rate Blood Pressure 136/87 O2 Sat by Pulse 100 Oximetry - Reevaluation(s) Reevaluation #1: 11/30/21 11:35 On reevaluation, patient states her headache has significantly decreased to ab out 4/10. Patient states she does still feel dizzy but not as dizzy as prior. She states when she closes her eyes the dizziness does return 11/30/21 12:16 On reevaluation, patient states her headache is still about 4/10. Patient states her dizziness has resolved. When patient shuts her eyes or legs down she states the dizziness does not return. Decadron given at this time. 11/30/21 12:48 On reevaluation, patient states her headache has decreased to about 2/10. Patient denies any dizziness at this time. She denies any visual changes, dizziness with shutting her eyes or lying flat. EKG Findings - EKG Comments: EKG Findings:: EKG impression: Sinus bradycardia. Ventricular rate 49 bpm. VA interval 170. Frustration 101. QT/QTc 438/408. EKG interpreted by myself along with my attending, Dr. Hidalgo. T-wave inversions, similar to prior EKG. Medical Decision Making - Medical Decision Making This 61-year-old female presents emergency Department with dizziness and headache that began around 4 AM this morning.Labs unremarkable. Urine with large leukocyte esterase, 50 white Blood cells, 31 squamous epithelial cells. Due to patient not having any urinary symptoms at this time, culture is sent and patient instructed to follow up with her primary care. Patient without any urinary symptoms or complaints at this time. CT brain without contrast impression: No acute intracranial abnormality or gross space-occupying lesion by this nonenhanced CT. No midline shift, herniation or ventriculomegaly. No acute intracranial hemorrhage. After receiving meclizine, Reglan and fluids patient states her dizziness did resolve. Patient states her headache did significantly decreased from 8/10 down to 4/10. One dose Decadron given the patient. Did discuss placing patient inpatient for further workup and to be seen by neurology, however patient states that she would prefer to be discharged and follow up with her primary care provider due to her dizziness being gone and her headache barely present. Patient states she will return if the dizziness returns or if headache worsens/progresses. Patient stated she would follow-up with her primary care provider next 1-2 days. Strict return precautions were discussed. Patient to follow-up with her primary care provider in next 24-48 hours. Patient verbally agreed to plan. Patient sent home in stable condition. Case discussed with my attending, Dr. Hidalgo. - Lab Data Result diagrams: 11/30/21 10:45 11/30/21 10:45 Lab Results 11/30/21 11/30/21 11/30/21 Range/Units 10:45 10:45 10:45 WBC 3.5 L (3.8-10.6) k/uL RBC 4.95 (3.80-5.40) m/uL Hgb 15.2 (11.4-16.0) gm/dL Hct 44.3 (34.0-46.0) % MCV 89.5 (80.0-100.0) fL MCH 30.7 (25.0-35.0) pg MCHC 34.3 (31.0-37.0) g/dL RDW 13.1 (11.5-15.5) % Plt Count 238 (150-450) k/uL MPV 7.0 Neutrophils % 55 % Lymphocytes % 37 % Monocytes % 4 % Eosinophils % 1 % Basophils % 0 % Neutrophils # 1.9 (1.3-7.7) k/uL Lymphocytes # 1.3 (1.0-4.8) k/uL Monocytes # 0.1 (0-1.0) k/uL Eosinophils # 0.0 (0-0.7) k/uL Basophils # 0.0 (0-0.2) k/uL Sodium 137 (137-145) mmol/L Potassium 4.3 (3.5-5.1) mmol/L Chloride 102 (98-107) mmol/L Carbon Dioxide 23 (22-30) mmol/L Anion Gap 12 mmol/L BUN 12 (7-17) mg/dL Creatinine 0.77 (0.52-1.04) mg/dL Est GFR (CKD-EPI)AfAm >90 (>60 ml/min/1.73 sqM) Est GFR (CKD-EPI)NonAf 89 (>60 ml/min/1.73 sqM) Glucose 96 (74-99) mg/dL Calcium 9.5 (8.4-10.2) mg/dL Total Bilirubin 0.7 (0.2-1.3) mg/dL AST 29 (14-36) U/L ALT 14 (4-34) U/L Alkaline Phosphatase 91 (38-126) U/L Troponin I <0.012 (0.000-0.034) ng/mL Total Protein 8.4 H (6.3-8.2) g/dL Albumin 4.7 (3.5-5.0) g/dL Urine Color Urine Appearance (Clear) Urine pH (5.0-8.0) Ur Specific [place] (1.001-1.035) Urine Protein (Negative) Urine Glucose (UA) (Negative) Urine Ketones (Negative) Urine Blood (Negative) Urine Nitrite (Negative) Urine Bilirubin (Negative) Urine Urobilinogen (<2.0) mg/dL Ur Leukocyte Esterase (Negative) Urine RBC (0-5) /hpf Urine WBC (0-5) /hpf Ur Squamous Epith Cells (0-4) /hpf Urine Bacteria (None) /hpf Urine Mucus (None) /hpf 11/30/21 Range/Units 12:16 WBC (3.8-10.6) k/uL RBC (3.80-5.40) m/uL Hgb (11.4-16.0) gm/dL Hct (34.0-46.0) % MCV (80.0-100.0) fL MCH (25.0-35.0) pg MCHC (31.0-37.0) g/dL RDW (11.5-15.5) % Plt Count (150-450) k/uL MPV Neutrophils % % Lymphocytes % % Monocytes % % Eosinophils % % Basophils % % Neutrophils # (1.3-7.7) k/uL Lymphocytes # (1.0-4.8) k/uL Monocytes # (0-1.0) k/uL Eosinophils # (0-0.7) k/uL Basophils # (0-0.2) k/uL Sodium (137-145) mmol/L Potassium (3.5-5.1) mmol/L Chloride (98-107) mmol/L Carbon Dioxide (22-30) mmol/L Anion Gap mmol/L BUN (7-17) mg/dL Creatinine (0.52-1.04) mg/dL Est GFR (CKD-EPI)AfAm (>60 ml/min/1.73 sqM) Est GFR (CKD-EPI)NonAf (>60 ml/min/1.73 sqM) Glucose (74-99) mg/dL Calcium (8.4-10.2) mg/dL Total Bilirubin (0.2-1.3) mg/dL AST (14-36) U/L ALT (4-34) U/L Alkaline Phosphatase (38-126) U/L Troponin I (0.000-0.034) ng/mL Total Protein (6.3-8.2) g/dL Albumin (3.5-5.0) g/dL Urine Color Yellow Urine Appearance Cloudy H (Clear) Urine pH 7.5 (5.0-8.0) Ur Specific [place] 1.017 (1.001-1.035) Urine Protein Trace H (Negative) Urine Glucose (UA) Negative (Negative) Urine Ketones Negative (Negative) Urine Blood Negative (Negative) Urine Nitrite Negative (Negative) Urine Bilirubin Negative (Negative) Urine Urobilinogen <2.0 (<2.0) mg/dL Ur Leukocyte Esterase Large H (Negative) Urine RBC 2 (0-5) /hpf Urine WBC 53 H (0-5) /hpf Ur Squamous Epith Cells 31 H (0-4) /hpf Urine Bacteria Rare H (None) /hpf Urine Mucus Moderate H (None) /hpf Disposition Clinical Impression: Dizziness, Headache Disposition: HOME SELF-CARE Condition: Stable Instructions (If sedation given, give patient instructions): Vertigo (ED), Acute Headache (ED), Dizziness (ED) Additional Instructions: Please follow-up with her primary care provider next 24-48 hours. Return to the emergency department if any symptoms return or with any new, worsening or concerning symptoms. Is patient prescribed a controlled substance at d/c from ED?: No Referrals: Raymond Gallegos DO [Primary Care Provider] - 1-2 days Time of Disposition: 13:08
[2021-11-30 11:14] LABS: Basophils % (A) 0 %; Eosinophils % (A) 1 %; HCT 44.3 % (34.0-46.0); HGB 15.2 gm/dL (11.4-16.0); Lymphocytes # (A) 1.3 k/uL (1.0-4.8); Lymphocytes % (A) 37 %; MCH 30.7 pg (25.0-35.0); MCHC 34.3 g/dL (31.0-37.0); MCV 89.5 fL (80.0-100.0); Monocytes # (A) 0.1 k/uL (0-1.0); Monocytes % (A) 4 %; Neutrophils # (A) 1.9 k/uL (1.3-7.7); Neutrophils % (A) 55 %; Platelet Count 238 k/uL (150-450); RBC 4.95 m/uL (3.80-5.40); RDW 13.1 % (11.5-15.5); WBC 3.5 k/uL (3.8-10.6)
[2021-11-30 11:31] LABS: ALT 14 U/L (4-34); AST 29 U/L (14-36); African American GFR (CKD) >90 (>60 ml/min/1.73 sqM); Albumin 4.7 g/dL (3.5-5.0); Alkaline Phosphatase 91 U/L (38-126); Anion Gap 12 mmol/L; Blood Urea Nitrogen 12 mg/dL (7-17); Calcium 9.5 mg/dL (8.4-10.2); Carbon Dioxide 23 mmol/L (22-30); Chloride 102 mmol/L (98-107); Glucose 96 mg/dL (74-99); Non-African American GFR(CKD) 89 (>60 ml/min/1.73 sqM); Potassium 4.3 mmol/L (3.5-5.1); Sodium 137 mmol/L (137-145); Total Bilirubin 0.7 mg/dL (0.2-1.3); Total Protein 8.4 g/dL (6.3-8.2)
--- NOTE | 2021-11-30 11:56 | CT ---
EXAMINATION TYPE: CT brain wo con DATE OF EXAM: 11/30/2021 COMPARISON: CT dated 12/02/2017 HISTORY: headache dizziness and nausea CT DLP: 1088.4 mGycm Automated exposure control for dose reduction was used. TECHNIQUE: CT scan of the brain is performed without IV contrast administration. FINDINGS: No acute intracranial hemorrhage. No gross acute cortical infarct. No midline shift, herniation or ve ntriculomegaly. Unremarkable giraldo-white matter differentiation, basal cisterns, sella and CP angles. No gross space-o ccupying lesion, vasogenic edema or mass effect. Unremarkable orbits. Right maxillary sinus polyp/retention cyst. Clear mastoid air cells. Unremarkabl e calvarial bones. IMPRESSION: No acute intracranial abnormality or gross space-occupying lesion by this nonenhanced CT scan.
[2021-11-30] MEDS ORDERED: DEXAMETHASONE SOD PHOSPHATE 10 MG/ML 1 ML VIAL IVP STA (12:29)
[2021-11-30 12:33] LABS: Appearance,Urine Cloudy (Clear); Bacteria,Urine Rare /hpf; Bilirubin,Urine Negative (Negative); Blood,Urine Negative (Negative); Color,Urine Yellow; Glucose,Urine (UA) Negative (Negative); Ketones,Urine Negative (Negative); Leukocyte Esterase,Urine Large (Negative); Mucus,Urine Moderate /hpf; Nitrite,Urine Negative (Negative); PH, Urine 7.5 (5.0-8.0); Protein,Urine Trace (Negative); RBC,Urine 2 /hpf (0-5); Specific Gravity,Urine 1.017 (1.001-1.035); Squamous Epithelial Cell,Urine 31 /hpf (0-4); Urobilinogen,Urine <2.0 mg/dL (<2.0); WBC,Urine 53 /hpf (0-5)
[2021-11-30 13:33] VITALS: BP 127/74; PULSE 75; RESP 16
== END 2021-11-30 13:33 | disposition home or self-care (01) ==
LOC: EC 09:13
DX: R42 Dizziness and giddiness (principal); R51.9 Headache, unspecified; I10 Essential (primary) hypertension; E07.9 Disorder of thyroid, unspecified; Z86.73 Personal history of transient ischemic attack (TIA), and cerebral infarction without residual deficits; Z79.890 Hormone replacement therapy; Z88.1 Allergy status to other antibiotic agents; Z88.9 Allergy status to unspecified drugs, medicaments and biological substances; Z88.0 Allergy status to penicillin; Z88.8 Allergy status to other drugs, medicaments and biological substances; Z88.2 Allergy status to sulfonamides
CPT/HCPCS: 36415; 93005; 80053; 84484; 85025; 81001; 87086; 70450; 99284; 96374; J1100; J2765

== ENCOUNTER 2022-01-19 16:59 | Observation (INO) | payer BC ==
[2022-01-19] MEDS ORDERED: ASPIRIN 81 MG PO STA (17:34)
[2022-01-19] MEDS ORDERED: NITROGLYCERIN OINT 1 INCH/GM PACKET TOPICAL STA (17:34)
--- NOTE | 2022-01-19 17:57 | ED ---
General Adult HPI - General Chief complaint: Chest Pain Stated complaint: Chest Pain Time Seen by Provider: 01/19/22 17:30 Source: patient, RN notes reviewed, old records reviewed Mode of arrival: ambulatory Limitations: no limitations - History of Present Illness Initial comments: This is a 51-year-old female with a past medical history significant for high blood pressure and high cholesterol. Patient states both of her parents had heart disease her dad had heart attack at 46. Patient states today he had a very stressful day at work about 2 and half hours prior to arrival she started having left-sided chest pain or shortness of breath she also had an associated headache. Patient states the pain is continued and has not subsided she describes as a pressure though she does get a little pain with palpation she states is not the same pain as the pressure is. Patient denies having taken any medication prior to arrival. Patient denies any recent fever chills or cough per patient denies any physical lifting or working out it started from the normal. Patient denies any calf tenderness or leg swelling. Patient denies any abdominal pain. Patient denies any diaphoretic episodes. Patient denies any nausea or vomiting. - Related Data Home Medications Medication Instructions Recorded Confirmed Loratadine [Claritin] 10 mg PO DAILY PRN 01/09/14 11/15/20 LORazepam [Ativan] 0.5 mg PO BID PRN 12/02/17 11/15/20 hydroCHLOROthiazide [Hydrodiuril] 25 mg PO DAILY 12/02/17 11/15/20 Escitalopram [Lexapro] 20 mg PO DAILY 10/01/18 11/15/20 Atorvastatin [Lipitor] 10 mg PO HS 09/29/20 11/15/20 Levothyroxine Sodium [Synthroid] 25 mcg PO HS 09/29/20 11/15/20 Ibuprofen [Motrin] 800 mg PO Q8H PRN 10/28/20 11/15/20 Potassium Chloride [Klor-Con 10] 10 meq PO DAILY 10/28/20 11/15/20 Albuterol Inhaler [Ventolin Hfa 2 puff INHALATION Q4H PRN 11/15/20 11/15/20 Inhaler] Allergies Allergy/AdvReac Type Severity Reaction Status Date / Time clarithromycin [From Biaxin] Allergy Swelling Verified 01/19/22 17:15 erythromycin lactobionate Allergy Swelling Verified 01/19/22 17:15 [From Erythrocin] fexofenadine HCl Allergy Swelling Verified 01/19/22 17:15 [From Clara-D 12 Hour] Penicillins Allergy Dyspnea Verified 01/19/22 17:15 pseudoephedrine HCl Allergy Swelling Verified 01/19/22 17:15 [From Clara-D 12 Hour] Sulfa (Sulfonamide Allergy Unknown Verified 01/19/22 17:15 Antibiotics) Review of Systems ROS Statement: Those systems with pertinent positive or pertinent negative responses have been documented in the HPI. ROS Other: All systems not noted in ROS Statement are negative. Past Medical History Past Medical History: Cancer, CVA/TIA, Hypertension, Pneumonia, Thyroid Disorder Additional Past Medical History / Comment(s): TIA 2017-no residual effects, Fx right clavicle & injured shoulder 2019 after a fall, still w/pain, cervical cancer several years ago, pneumonia several years ago, recent admission here for SOB that has been frequent for a while per pt., states still not sure what is causing it, recent stress & echo wnl per pt. History of Any Multi-Drug Resistant Organisms: None Reported Past Surgical History: Section, Orthopedic Surgery, Uterine Ablation Additional Past Surgical History / Comment(s): jaw surgery to extend jaw- titanium screws in jaw,. LEEP procedure, rotator cuff repair, bicep repair, left knee arthroscopy, ganglian cyst removal on left middle finger Past Anesthesia/Blood Transfusion Reactions: No Reported Reaction Past Psychological History: No Psychological Hx Reported Smoking Status: Never smoker Past Alcohol Use History: None Reported Past Drug Use History: None Reported General Exam - General Exam Comments Initial Comments: GENERAL: Patient is well-developed and well-nourished. Patient is nontoxic and well- hydrated and is in mild distress. ENT: Neck is soft and supple. No significant lymphadenopathy is noted. Oropharynx is clear. Moist mucous membranes. Neck has full range of motion without eliciting any pain. EYES: The sclera were anicteric and conjunctiva were pink and moist. Extraocular movements were intact and pupils were equal round and reactive to light. Eyelids were unremarkable. PULMONARY: Unlabored respirations. Good breath sounds bilaterally. No audible rales rhonchi or wheezing was noted. CARDIOVASCULAR: There is a regular rate and rhythm without any murmurs gallops or rubs. ABDOMEN: Soft and nontender with normal bowel sounds. SKIN: Skin is clear with no lesions or rashes and otherwise unremarkable. NEUROLOGIC: Patient is alert and oriented x3. Cranial nerves II through XII are grossly intact. Motor and sensory are also intact. Normal speech, volume and content. Symmetrical smile. MUSCULOSKELETAL: Normal extremities with adequate strength and full range of motion. LYMPHATICS: No significant lymphadenopathy is noted PSYCHIATRIC: Normal psychiatric evaluation. Limitations: no limitations Course Vital Signs 01/19/22 17:12 Temperature 97.7 F Pulse Rate 57 L Respiratory 20 Rate Blood Pressure 138/81 O2 Sat by Pulse 100 Oximetry Medical Decision Making - Medical Decision Making EKG shows sinus bradycardia 54 bpm MS interval is 166 QRS is 89 QT interval 435 QTC is 420. Patient's EKG shows no ST segment elevation or depression. Chest x-ray shows no acute normalities. Patient received aspirin and Nitropaste emergency department. One pack and reevaluate the patient she was feeling slightly better at this time. I spoke with some physicians he agreed to admit the patient admitted the patient wrote admitting orders. - Lab Data Result diagrams: 01/19/22 17:53 01/19/22 17:53 Lab Results 01/19/22 01/19/22 01/19/22 Range/Units 17:53 17:53 17:53 WBC 5.6 (3.8-10.6) k/uL RBC 4.59 (3.80-5.40) m/uL Hgb 14.1 (11.4-16.0) gm/dL Hct 41.9 (34.0-46.0) % MCV 91.2 (80.0-100.0) fL MCH 30.8 (25.0-35.0) pg MCHC 33.7 (31.0-37.0) g/dL RDW 13.6 (11.5-15.5) % Plt Count 273 (150-450) k/uL MPV 7.0 Neutrophils % 60 % Lymphocytes % 35 % Monocytes % 3 % Eosinophils % 1 % Basophils % 0 % Neutrophils # 3.3 (1.3-7.7) k/uL Lymphocytes # 1.9 (1.0-4.8) k/uL Monocytes # 0.2 (0-1.0) k/uL Eosinophils # 0.1 (0-0.7) k/uL Basophils # 0.0 (0-0.2) k/uL PT 10.3 (9.0-12.0) sec INR 0.9 (<1.2) APTT 27.5 (22.0-30.0) sec Sodium 138 (137-145) mmol/L Potassium 3.4 L (3.5-5.1) mmol/L Chloride 100 (98-107) mmol/L Carbon Dioxide 31 H (22-30) mmol/L Anion Gap 7 mmol/L BUN 14 (7-17) mg/dL Creatinine 0.90 (0.52-1.04) mg/dL Est GFR (CKD-EPI)AfAm 85 (>60 ml/min/1.73 sqM) Est GFR (CKD-EPI)NonAf 74 (>60 ml/min/1.73 sqM) Glucose 105 H (74-99) mg/dL Calcium 9.0 (8.4-10.2) mg/dL Magnesium 2.3 (1.6-2.3) mg/dL Total Bilirubin 0.4 (0.2-1.3) mg/dL AST 27 (14-36) U/L ALT 14 (4-34) U/L Alkaline Phosphatase 98 (38-126) U/L Troponin I (0.000-0.034) ng/mL Total Protein 7.8 (6.3-8.2) g/dL Albumin 4.6 (3.5-5.0) g/dL 01/19/22 Range/Units 17:53 WBC (3.8-10.6) k/uL RBC (3.80-5.40) m/uL Hgb (11.4-16.0) gm/dL Hct (34.0-46.0) % MCV (80.0-100.0) fL MCH (25.0-35.0) pg MCHC (31.0-37.0) g/dL RDW (11.5-15.5) % Plt Count (150-450) k/uL MPV Neutrophils % % Lymphocytes % % Monocytes % % Eosinophils % % Basophils % % Neutrophils # (1.3-7.7) k/uL Lymphocytes # (1.0-4.8) k/uL Monocytes # (0-1.0) k/uL Eosinophils # (0-0.7) k/uL Basophils # (0-0.2) k/uL PT (9.0-12.0) sec INR (<1.2) APTT (22.0-30.0) sec Sodium (137-145) mmol/L Potassium (3.5-5.1) mmol/L Chloride (98-107) mmol/L Carbon Dioxide (22-30) mmol/L Anion Gap mmol/L BUN (7-17) mg/dL Creatinine (0.52-1.04) mg/dL Est GFR (CKD-EPI)AfAm (>60 ml/min/1.73 sqM) Est GFR (CKD-EPI)NonAf (>60 ml/min/1.73 sqM) Glucose (74-99) mg/dL Calcium (8.4-10.2) mg/dL Magnesium (1.6-2.3) mg/dL Total Bilirubin (0.2-1.3) mg/dL AST (14-36) U/L ALT (4-34) U/L Alkaline Phosphatase (38-126) U/L Troponin I <0.012 (0.000-0.034) ng/mL Total Protein (6.3-8.2) g/dL Albumin (3.5-5.0) g/dL Disposition Clinical Impression: Chest pain Disposition: ADMITTED IP TO THIS [facility] Referrals: Raymond Gallegos DO [Primary Care Provider] - 1-2 days Time of Disposition: 19:02
[2022-01-19 18:04] LABS: Basophils % (A) 0 %; Eosinophils # (A) 0.1 k/uL (0-0.7); Eosinophils % (A) 1 %; HCT 41.9 % (34.0-46.0); HGB 14.1 gm/dL (11.4-16.0); Lymphocytes # (A) 1.9 k/uL (1.0-4.8); Lymphocytes % (A) 35 %; MCH 30.8 pg (25.0-35.0); MCHC 33.7 g/dL (31.0-37.0); MCV 91.2 fL (80.0-100.0); Monocytes # (A) 0.2 k/uL (0-1.0); Monocytes % (A) 3 %; Neutrophils # (A) 3.3 k/uL (1.3-7.7); Neutrophils % (A) 60 %; Platelet Count 273 k/uL (150-450); RBC 4.59 m/uL (3.80-5.40); RDW 13.6 % (11.5-15.5); WBC 5.6 k/uL (3.8-10.6)
[2022-01-19 18:19] LABS: Albumin 4.6 g/dL (3.5-5.0); INR 0.9 (<1.2); Magnesium 2.3 mg/dL (1.6-2.3); Partial Thromboplastin Time 27.5 sec (22.0-30.0); Potassium 3.4 mmol/L (3.5-5.1); Prothrombin Time 10.3 sec (9.0-12.0); Total Bilirubin 0.4 mg/dL (0.2-1.3); Total Protein 7.8 g/dL (6.3-8.2)
--- NOTE | 2022-01-19 18:34 | XR ---
EXAMINATION TYPE: XR chest 2V DATE OF EXAM: 01/19/2022 6:20 PM COMPARISON: 09/29/2020 TECHNIQUE: XR chest 2V Frontal and lateral views of the chest. CLINICAL INDICATION:Female, 51 years old with history of Chest Pain; FINDINGS: Lungs/Pleura: There is no evidence of pleural effusion, focal consolidation, or pneumothorax. Pulmonary vascularity: Unremarkable. Heart/mediastinum: Cardiomediastinal silhouette is unremarkable. Musculoskeletal: No acute osseous pathology. IMPRESSION: No acute cardiopulmonary disease/process.
[2022-01-19] MEDS ORDERED: NITROGLYCERIN SL TABS 0.4 MG TAB SUBLINGUAL PRN (19:17)
[2022-01-19] MEDS ORDERED: ACETAMINOPHEN TAB 325 MG TAB PO PRN (21:25)
[2022-01-20] MEDS: NITROGLYCERIN OINT 1 INCH/GM PACKET TOPICAL SCH ×3 (00:29→12:32)
[2022-01-20] MEDS ORDERED: ZOLPIDEM 10 MG TAB PO PRN (00:31)
[2022-01-20] MEDS ORDERED: IBUPROFEN 400 MG TAB PO STA (00:32)
[2022-01-20] MEDS ORDERED: ZOLPIDEM 5 MG TAB PO PRN (00:49)
--- NOTE | 2022-01-20 02:25 | P.HPIM ---
History of Present Illness H&P Date: 01/19/22 Chief Complaint: chest pain 51 year old female with hypertension , hyperlipidemia patient comes in with chest pain , she was having stressful day at work, she is a out of school hours care worker , and suddenly started experiencing left sided chest pain radiated to her back associated with feeling nauseous, , SOB, dizzy , denies any palpitations or vomiting. she denies any trauma or prior unusual physical activity, denies any coughing, exertional dyspnea , abd pain , diarrhea or bleeding. denies any recent travel , hospital stay or history of clots. she had a negative stress test a year ago . Denies tobacco smoking initial workup in the ED is negative and unremarkable Review of Systems Pertinent positives as noted in HPI. All other systems were reviewed and are negative Past Medical History Past Medical History: Cancer, CVA/TIA, Hypertension, Pneumonia, Thyroid Disorder Additional Past Medical History / Comment(s): TIA 2017-no residual effects, Fx right clavicle & injured shoulder 2019 after a fall, still w/pain, cervical cancer several years ago, pneumonia several years ago, recent admission here for SOB that has been frequent for a while per pt., states still not sure what is causing it, recent stress & echo wnl per pt. History of Any Multi-Drug Resistant Organisms: None Reported Past Surgical History: Section, Orthopedic Surgery, Uterine Ablation Additional Past Surgical History / Comment(s): jaw surgery to extend jaw- titanium screws in jaw,. LEEP procedure, rotator cuff repair, bicep repair, left knee arthroscopy, ganglian cyst removal on left middle finger Past Anesthesia/Blood Transfusion Reactions: No Reported Reaction Past Psychological History: No Psychological Hx Reported Smoking Status: Never smoker Past Alcohol Use History: None Reported Past Drug Use History: None Reported - Past Family History Family Family Medical History: Coronary Artery Disease (CAD) Medications and Allergies Home Medications Medication Instructions Recorded Confirmed Type Loratadine [Claritin] 10 mg PO DAILY 01/09/14 01/19/22 History LORazepam [Ativan] 0.5 mg PO DAILY PRN 12/02/17 01/19/22 History hydroCHLOROthiazide [Hydrodiuril] 25 mg PO DAILY 12/02/17 01/19/22 History Escitalopram [Lexapro] 20 mg PO DAILY 10/01/18 01/19/22 History Atorvastatin [Lipitor] 10 mg PO DAILY 09/29/20 01/19/22 History Levothyroxine Sodium [Synthroid] 25 mcg PO HS 09/29/20 01/19/22 History Potassium Chloride [Klor-Con 10] 10 meq PO DAILY 10/28/20 01/19/22 History LORazepam [Ativan] 0.5 mg PO DAILY 01/19/22 01/19/22 History Allergies Allergy/AdvReac Type Severity Reaction Status Date / Time clarithromycin [From Biaxin] Allergy Swelling Verified 01/19/22 19:28 erythromycin lactobionate Allergy Swelling Verified 01/19/22 19:28 [From Erythrocin] fexofenadine HCl Allergy Swelling Verified 01/19/22 19:28 [From Clara-D 12 Hour] Penicillins Allergy Rash/Dyspne Verified 01/19/22 19:28 a pseudoephedrine HCl Allergy Swelling Verified 01/19/22 19:28 [From Clara-D 12 Hour] Sulfa (Sulfonamide Allergy Unknown Verified 01/19/22 19:28 Antibiotics) Physical Exam Vitals: Vital Signs Temp Pulse Resp BP Pulse Ox 01/20/22 00:23 98.6 F 57 L 16 122/70 97 01/19/22 17:12 97.7 F 57 L 20 138/81 100 Intake and Output 01/19/22 01/19/22 01/20/22 14:59 22:59 06:59 Other: Weight 94.801 kg Constitutional: No acute distress, conversant, pleasant Eyes: Anicteric sclerae, moist conjunctiva, Pupils equal round reactive to light ENMT: NC/AT Oropharynx clear, no erythema, or exudates Neck: Supple, FROM, no masses, or JVD No carotid bruits No thyromegaly Lungs: Clear to auscultation Clear to percussion Normal respiratory effort, no accessory muscle use Cardiovascular: Heart regular in rate and rhythm, No murmurs, gallops, or rubs No peripheral edema Abdominal: Soft Nontender, no guarding, rebound or rigidity Abdomen moving with respiration Normoactive bowel sounds No hepatomegaly, No splenomegaly No palpable mass No abdominal wall hernia noted Skin: Normal temperature, tone, texture, turgor No induration No subcutaneous nodules No rash, lesions No ulcers Extremities: No digital cyanosis No clubbing Pedal pulses intact and symmetrical Radial pulses intact and symmetrical No calf tenderness Psychiatric: Alert and oriented to person, place and time Appropriate affect fair judgement Neuro Muscles Strength 5/5 in all 4 extremities Sensation to light touch grossly present throughout Cranial nerves II-XII grossly intact No focal sensory deficits Lymphatics: no palpable cervical or supraclavicular , or inguinal lymph nodes Results CBC & Chem 7: 01/19/22 17:53 01/19/22 17:53 Labs: Abnormal Lab Results - Last 24 Hours (Table) 01/19/22 Range/Units 17:53 Potassium 3.4 L (3.5-5.1) mmol/L Carbon Dioxide 31 H (22-30) mmol/L Glucose 105 H (74-99) mg/dL Assessment and Plan Assessment: atypical chest pain rule out ACS EKG no acute changes CXR no acute pathology trops negative , continue to trend phototypesetting equipment monitor monitor vital signs ASA, statin cardiology consult A1c, lipid panel , TSH pain control Chronic conditions Hypertension resume home meds hyperlipidemia resume statin Hypothyroidism levothyroxine DVT prophylaxis heparin subcu 3 times a day Full code Anticipated length of stay less than 2 midnights
[2022-01-20 07:45] VITALS: RESP 20
[2022-01-20] MEDS ORDERED: HEPARIN SODIUM,PORCINE/PF 5,000 UNIT/0.5 ML SYRINGE SQ SCH (08:00)
[2022-01-20] MEDS ORDERED: ASPIRIN 325 MG TAB PO SCH (09:00)
[2022-01-20] MEDS ORDERED: hydroCHLOROthiazide 25 MG TAB PO SCH (09:00)
[2022-01-20] MEDS ORDERED: ASPIRIN 81 MG PO SCH (09:00)
[2022-01-20] MEDS ORDERED: ATORVASTATIN 10 MG TAB PO SCH (09:00)
[2022-01-20] MEDS ORDERED: ESCITALOPRAM 20 MG TAB PO SCH (09:00)
[2022-01-20 09:02] LABS: Chol/HDL Ratio 3.67 Ratio; LDL Cholesterol,Calculated 137.5 mg/dL (0.0-131.0); VLDL Calculation 19.64 mg/dL (5.00-40.00)
--- NOTE | 2022-01-20 10:24 | P.CRDCN ---
History of Present Illness Consult date: 01/20/22 Chief complaint: Chest pain History of present illness: The patient is a pleasant 51-year-old female patient with a past medical history significant for hypertension and dyslipidemia and family history of coronary artery disease presented to the emergency department complaining of chest discomfort. She was in her usual state of altered yesterday. 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 She was in the class when she started experiencing discomfort in the middle of the chest as a sharp/dull kind of discomfort with no radiation to the arms or neck or shoulders or back and no associated symptoms of shortness of breath or dizziness or lightheadedness or any feeling of heart racing or fluttering or presyncope or syncope. She decided to come to the emergency department. The chest discomfort lasted for about 30 minutes. She has been chest pain-free since she has been in the hospital. She underwent a workup including EKG showing sinus rhythm with no ST or T-wave abnormalities and also cardiac enzymes came in to be unremarkable. The chest x-ray also showed no acute abnormalities. The blood pressure and heart rate have been stable. The physical examination overall is unremarkable. Past Medical History Past Medical History: Cancer, CVA/TIA, Hypertension, Pneumonia, Thyroid Disorder Additional Past Medical History / Comment(s): TIA 2017-no residual effects, Fx right clavicle & injured shoulder 2019 after a fall, still w/pain, cervical cancer several years ago, pneumonia several years ago, recent admission here for SOB that has been frequent for a while per pt., states still not sure what is causing it, recent stress & echo wnl per pt. History of Any Multi-Drug Resistant Organisms: None Reported Past Surgical History: Section, Orthopedic Surgery, Uterine Ablation Additional Past Surgical History / Comment(s): jaw surgery to extend jaw- titanium screws in jaw,. LEEP procedure, rotator cuff repair, bicep repair, left knee arthroscopy, ganglian cyst removal on left middle finger Past Anesthesia/Blood Transfusion Reactions: No Reported Reaction Past Psychological History: No Psychological Hx Reported Smoking Status: Never smoker Past Alcohol Use History: None Reported Past Drug Use History: None Reported - Past Family History Family Family Medical History: Coronary Artery Disease (CAD) Medications and Allergies Home Medications Medication Instructions Recorded Confirmed Type Loratadine [Claritin] 10 mg PO DAILY 01/09/14 01/19/22 History LORazepam [Ativan] 0.5 mg PO DAILY PRN 12/02/17 01/19/22 History hydroCHLOROthiazide [Hydrodiuril] 25 mg PO DAILY 12/02/17 01/19/22 History Escitalopram [Lexapro] 20 mg PO DAILY 10/01/18 01/19/22 History Atorvastatin [Lipitor] 10 mg PO DAILY 09/29/20 01/19/22 History Levothyroxine Sodium [Synthroid] 25 mcg PO HS 09/29/20 01/19/22 History Potassium Chloride [Klor-Con 10] 10 meq PO DAILY 10/28/20 01/19/22 History LORazepam [Ativan] 0.5 mg PO DAILY 01/19/22 01/19/22 History Allergies Allergy/AdvReac Type Severity Reaction Status Date / Time clarithromycin [From Biaxin] Allergy Swelling Verified 01/19/22 19:28 erythromycin lactobionate Allergy Swelling Verified 01/19/22 19:28 [From Erythrocin] fexofenadine HCl Allergy Swelling Verified 01/19/22 19:28 [From Clara-D 12 Hour] Penicillins Allergy Rash/Dyspne Verified 01/19/22 19:28 a pseudoephedrine HCl Allergy Swelling Verified 01/19/22 19:28 [From Clara-D 12 Hour] Sulfa (Sulfonamide Allergy Unknown Verified 01/19/22 19:28 Antibiotics) Physical Exam Vitals: Vital Signs Temp Pulse Pulse Resp BP BP Pulse Ox 01/20/22 07:44 97.5 F L 60 20 117/79 100 01/20/22 07:25 98.6 F 50 L 18 120/81 98 01/20/22 06:18 50 L 18 120/81 98 01/20/22 04:00 16 01/20/22 00:23 98.6 F 57 L 16 122/70 97 01/19/22 17:12 97.7 F 57 L 20 138/81 100 Intake and Output 01/19/22 01/20/22 01/20/22 22:59 06:59 14:59 Other: Weight 94.801 kg - Constitutional General appearance: no acute distress - Respiratory Respiratory: bilateral: CTA - Cardiovascular Rhythm: regular Heart sounds: normal: S1, S2 Results 01/19/22 17:53 01/19/22 17:53 Cardiac Enzymes 01/19/22 01/19/22 01/19/22 Range/Units 17:53 17:53 21:06 AST 27 (14-36) U/L Troponin I <0.012 <0.012 (0.000-0.034) ng/mL 01/19/22 01/20/22 Range/Units 23:55 03:51 AST (14-36) U/L Troponin I <0.012 <0.012 (0.000-0.034) ng/mL Coagulation 01/19/22 Range/Units 17:53 PT 10.3 (9.0-12.0) sec APTT 27.5 (22.0-30.0) sec Lipids 01/20/22 Range/Units 03:51 Triglycerides 98.20 (0.00-149.00) mg/dL Cholesterol 216.00 H (0.00-200.00) mg/dL HDL Cholesterol 58.90 (40.00-60.00) mg/dL Cholesterol/HDL Ratio 3.67 Ratio CBC 01/19/22 Range/Units 17:53 WBC 5.6 (3.8-10.6) k/uL RBC 4.59 (3.80-5.40) m/uL Hgb 14.1 (11.4-16.0) gm/dL Hct 41.9 (34.0-46.0) % Plt Count 273 (150-450) k/uL Comprehensive Metabolic Panel 01/19/22 Range/Units 17:53 Sodium 138 (137-145) mmol/L Potassium 3.4 L (3.5-5.1) mmol/L Chloride 100 (98-107) mmol/L Carbon Dioxide 31 H (22-30) mmol/L BUN 14 (7-17) mg/dL Creatinine 0.90 (0.52-1.04) mg/dL Glucose 105 H (74-99) mg/dL Calcium 9.0 (8.4-10.2) mg/dL AST 27 (14-36) U/L ALT 14 (4-34) U/L Alkaline Phosphatase 98 (38-126) U/L Total Protein 7.8 (6.3-8.2) g/dL Albumin 4.6 (3.5-5.0) g/dL Current Medications Generic Name Dose Route Start Last Admin Trade Name Freq PRN Reason Stop Dose Admin Acetaminophen 650 mg 01/19/22 21:25 01/19/22 21:53 Acetaminophen Tab 325 Mg Tab PO 650 mg Q4HR PRN Administration Fever and/ or Pain Aspirin 81 mg 01/20/22 09:00 01/20/22 09:48 Aspirin 81 Mg PO 81 mg DAILY ESTUARDO Administration Atorvastatin Calcium 10 mg 01/20/22 09:00 01/20/22 09:47 Atorvastatin 10 Mg Tab PO 10 mg DAILY ESTUARDO Administration Escitalopram Oxalate 20 mg 01/20/22 09:00 Escitalopram 20 Mg Tab PO DAILY ESTUARDO Heparin Sodium (Porcine) 5,000 unit 01/20/22 08:00 01/20/22 09:48 Heparin Sodium,Porcine/Pf 5,000 Unit/0.5 Ml Syringe SQ 5,000 unit Q8HR ESTUARDO Administration Hydrochlorothiazide 25 mg 01/20/22 09:00 Hydrochlorothiazide 25 Mg Tab PO DAILY ESTUARDO Levothyroxine Sodium 25 mcg 01/20/22 21:00 Levothyroxine 25 Mcg Tab PO HS ESTUARDO Nitroglycerin 0.4 mg 01/19/22 19:17 Nitroglycerin Sl Tabs 0.4 Mg Tab SUBLINGUAL Q5M PRN Chest Pain Nitroglycerin 1 inch 01/20/22 00:00 01/20/22 06:19 Nitroglycerin Oint 1 Inch/Gm Packet TOPICAL Not Given Q6HR [facility] Zolpidem Tartrate 10 mg 01/20/22 00:49 01/20/22 00:52 Zolpidem 5 Mg Tab PO 10 mg HS PRN Administration Insomnia Intake and Output 01/19/22 01/20/22 01/20/22 22:59 06:59 14:59 Other: Weight 94.801 kg 01/19/22 17:53 01/19/22 17:53 Assessment and Plan Assessment: Assessment #1 atypical chest discomfort #2 hypertension #3 dyslipidemia Plan #1 continue the current medical regimen #2 she was ruled out for acute coronary event #3 her seat with a stress test #4 further recommendation to follow
--- NOTE | 2022-01-20 12:06 | CA ---
Stress Echo Report Mehul Xiao Age: 51 Gender: F : 1970 Exam Date: 01/20/2022 10:14 Exam Location: [facility] Ht (in): 69 Wt (lb): 209 Ordering Physician: Keely Rodriguez Referring Physician: SIMEON,, Tal[employer] Relationship Manager: Nahomi Pan RDCS Technologist Procedure CPT: Indication: Chest Pain ICD-9 Codes: Rhythm: Patient History: Atypical angina, Diabetes mellitus, Hyperlipidemia, Hypertension, Family history Cardiac Medications: Medications in past 24 hours: Contrast: Stress Results Protocol: Azael Total dose(mL): Exercise Duration (min:sec): Max ST Depression (mm): Angina Score: Jain Score: METS: 10.9 Resting HR: 78 Resting BP: 101 / 57 Peak HR: 158 Peak BP: 202 / 77 Max Predicted HR: 168 94 % Max Predicted HR Target HR: 143 Double Product: 00264 Stress Summary: BP Response: Reason for Termination: Reached target heart rate or work-load Cardiac Symptoms: Chest pain ECG Analysis Resting ECG: Stress ECG: Arrhythmia: Echo Analysis Resting Echo: Peak Echo Analysis: MEASUREMENTS (Male/Female) Normal Values CONCLUSIONS Excellent exercise tolerance Normal EKG and response to exercise Normal echocardiogram response to exercise Dr. Mello Kaba MD (Electronically Signed) Final Date: 20 Jan 2022 12:05
--- NOTE | 2022-01-20 13:48 | P.DS ---
Providers Date of admission: 01/19/22 19:37 Expected date of discharge: 01/20/22 Attending physician: Mady Crowley MD Consults: 01/19/22 19:17 Consult Physician Urgent Consulting Provider: [facility] Consult Reason/Comments: Chest pain Do you want consulting provider notified?: Yes Primary care physician: [facility] Course: Discharge Diagnosis: Chest pain, acute coronary event ruled out Hypertension, Hyperlipidemia, lipid profile revealing elevated cholesterol of 216 an elevated LDL of 137.5. Atorvastatin increased to 20 mg. daily from previous 10 mg per day. Hypothyroidism Depression Anxiety Hospital Course: Patient is a very pleasant 51-year-old female with a past medical history of hypertension, hyperlipidemia, hypothyroidism, depression, and anxiety. She presented to the emergency department on 01/19/22 with a chief complaint of chest pain radiating into her back accompanied by nausea, dizziness, and shortness of breath. Patient reports this midsternal chest pain/tightness was improved after Nitropaste was administered in the emergency department, however she reports his pain is worsened upon taking a deep breath. She denies having any fevers, cough, congestion, shortness of breath at rest, abdominal pain, or experiencing any numbness/tingling/weakness in her extremities. Patient underwent full evaluation in the emergency department EKG was completed showing sinus bradycardia at 54 bpm, unchanged from previous EKG completed 11/30/21. Chest x- ray negative for acute cardiopulmonary process. Troponin was negative at less than 0.012. CBC, coags, and CMP were unremarkable. Patient was admitted under services of consultation to cardiology. Troponins trended throughout the night all negative at less than 0.0124 draws. Hemoglobin A1c resulting of 5.3%. Lipid profile revealing elevated cholesterol of 216 and an elevated LDL of 137.5. Patient evaluated by cardiology and was taken down for a cardiac stress echo. Stress echo completed reporting excellent exercise tolerance, normal EKG response to exercise, and normal echocardiogram response to exercise. Patient has been cleared by cardiology and they're recommending outpatient follow-up in their office in 2 weeks. Atorvastatin was increased to 20 mg daily and patient to continue daily medication regimen with hydrochlorothiazide, Lexapro, levothyroxine, and Ativan. Physical exam: Vital signs reviewed and stable. General: Nontoxic, no distress and appears stated age. Derm: Skin warm and dry, normal coloration for ethnicity. Head: Atraumatic, normocephalic and symmetric. Eyes: EOMs intact, no lid lag, and anicteric sclera Mouth: no lip lesions, mucus membranes moist Cardiovascular: Bradycardic rate and regular rhythm with normal S1S2, no murmur, positive posterior tibial pulses bilaterally, and cap refill < 2 seconds. Lungs: Respirations even, regular, and unlabored on room air. Lungs CTA bilaterally, no rhonchi, no rales, no wheezing, and no accessory muscle usage. Abdominal: soft, nontender to palpation, no guarding, no appreciable organomegaly Ext: ROM intact. No gross muscle atrophy, no edema, no contractures Neuro: Speech clear, face symmetrical and CN II-XII grossly intact with no noted focal neuro deficits Psych: Alert and oriented to person, place, time, and situation. Appropriate and pleasant affect. A total of 33 minutes of time were spent preparing this complex discharge s marielos. Pt was discharged on 01/20/22 at 1:31 PM Patient Condition at Discharge: Stable Plan - Discharge Summary New Discharge Prescriptions: Continue Loratadine [Claritin] 10 mg PO DAILY hydroCHLOROthiazide [Hydrodiuril] 25 mg PO DAILY LORazepam [Ativan] 0.5 mg PO DAILY PRN PRN Reason: Anxiety Escitalopram [Lexapro] 20 mg PO DAILY Levothyroxine Sodium [Synthroid] 25 mcg PO HS Potassium Chloride [Klor-Con 10 ER] 10 meq PO DAILY Changed Atorvastatin [Lipitor] 20 mg PO DAILY 30 Days #60 tab Discontinued LORazepam [Ativan] 0.5 mg PO DAILY Discharge Medication List Loratadine [Claritin] 10 mg PO DAILY 01/09/14 [History] LORazepam [Ativan] 0.5 mg PO DAILY PRN 12/02/17 [History] hydroCHLOROthiazide [Hydrodiuril] 25 mg PO DAILY 12/02/17 [History] Escitalopram [Lexapro] 20 mg PO DAILY 10/01/18 [History] Levothyroxine Sodium [Synthroid] 25 mcg PO HS 09/29/20 [History] Potassium Chloride [Klor-Con 10 ER] 10 meq PO DAILY 10/28/20 [History] Atorvastatin [Lipitor] 20 mg PO DAILY 30 Days #60 tab 01/20/22 [Rx] Follow up Appointment(s)/Referral(s): Ezekiel Stephen MD [STAFF PHYSICIAN] - 2 Weeks Raymond Gallegos DO [Primary Care Provider] - 1-2 days Activity/Diet/Wound Care/Special Instructions: Activity: As tolerated. Take breaks as needed. Diet: Heart healthy and carb consistent diet. Avoid salts, or foods with hidden salts such as canned or boxed foods and frozen dinners. Extra salt makes your heart work harder and traps the fluid in your body for longer. Special Instructions: Take all of your medications as directed and remember to keep all of your doctor's appointments and follow-up as needed. Thank you for allowing us to participate in your care, it was truly a pleasure having you for our patient!!! Discharge Disposition: HOME SELF-CARE
[2022-01-20 14:07] VITALS: BP 119/82; PULSE 59; TEMP 97.8
[2022-01-20] MEDS ORDERED: LEVOTHYROXINE 25 MCG TAB PO SCH (21:00)
== END 2022-01-20 15:03 | disposition home or self-care (01) ==
LOC: EC 16:59 → 6NMEDSUR 19:37
PROVIDERS: ADMIT Internal Medicine; ATTEND Internal Medicine
DX: R07.2 Precordial pain (principal); I10 Essential (primary) hypertension; E78.5 Hyperlipidemia, unspecified; E03.9 Hypothyroidism, unspecified; E78.00 Pure hypercholesterolemia, unspecified; R00.1 Bradycardia, unspecified; R42 Dizziness and giddiness; R11.0 Nausea; R51.9 Headache, unspecified; R06.02 Shortness of breath; F32.A Depression, unspecified; F41.9 Anxiety disorder, unspecified; Z79.899 Other long term (current) drug therapy; Z79.890 Hormone replacement therapy; Z88.0 Allergy status to penicillin; Z88.1 Allergy status to other antibiotic agents; Z88.2 Allergy status to sulfonamides; Z88.6 Allergy status to analgesic agent; Z88.8 Allergy status to other drugs, medicaments and biological substances; Z71.3 Dietary counseling and surveillance; Z98.891 History of uterine scar from previous surgery; Z87.01 Personal history of pneumonia (recurrent); Z86.73 Personal history of transient ischemic attack (TIA), and cerebral infarction without residual deficits; Z85.41 Personal history of malignant neoplasm of cervix uteri; Z82.49 Family history of ischemic heart disease and other diseases of the circulatory system
CPT/HCPCS: 99285; 96372; 36415; 93005 ×2; 93351; 80061; 80053; 83735; 84484 ×2; 85025; 85610; 85730; 83036; 71046; G0378 ×2; J1644

== ENCOUNTER 2022-03-12 15:47 | Emergency (ER) | payer BC ==
[2022-03-12 15:52] VITALS: TEMP 98.1
[2022-03-12] MEDS ORDERED: SODIUM CHLORIDE 0.9% 1,000 ML IV STA (18:26)
[2022-03-12] MEDS ORDERED: MORPHINE SULFATE 4 MG/ML SYRINGE IV STA (18:26)
[2022-03-12] MEDS ORDERED: KETOROLAC 15 MG/ML 1 ML VIAL IVP STA (18:26)
[2022-03-12 18:55] LABS: Basophils # (A) 0.1 k/uL (0-0.2); Basophils % (A) 1 %; Eosinophils # (A) 0.1 k/uL (0-0.7); Eosinophils % (A) 2 %; HGB 13.5 gm/dL (11.4-16.0); Lymphocytes # (A) 1.8 k/uL (1.0-4.8); Lymphocytes % (A) 21 %; MCH 30.6 pg (25.0-35.0); MCHC 33.8 g/dL (31.0-37.0); MCV 90.5 fL (80.0-100.0); Mean Platelet Volume 7.3; Monocytes # (A) 0.3 k/uL (0-1.0); Monocytes % (A) 4 %; Neutrophils # (A) 6.3 k/uL (1.3-7.7); Neutrophils % (A) 73 %; Platelet Count 274 k/uL (150-450); RBC 4.42 m/uL (3.80-5.40); RDW 12.7 % (11.5-15.5); WBC 8.6 k/uL (3.8-10.6)
[2022-03-12] MEDS ORDERED: LIDOCAINE 5% PATCH TOPICAL STA (19:00)
[2022-03-12 19:01] LABS: Appearance,Urine Cloudy (Clear); Bilirubin,Urine Negative (Negative); Blood,Urine Trace (Negative); Color,Urine Yellow; Glucose,Urine (UA) Negative (Negative); Ketones,Urine Negative (Negative); Leukocyte Esterase,Urine Large (Negative); Mucus,Urine Occasional /hpf; Nitrite,Urine Negative (Negative); PH, Urine 5.5 (5.0-8.0); Protein,Urine Trace (Negative); RBC,Urine 11 /hpf (0-5); Specific Gravity,Urine 1.023 (1.001-1.035); Squamous Epithelial Cell,Urine 20 /hpf (0-4); Urobilinogen,Urine <2.0 mg/dL (<2.0); WBC,Urine 65 /hpf (0-5)
[2022-03-12 19:08] LABS: HCG,Qualitative Serum Not Detected
[2022-03-12 19:10] LABS: ALT 13 U/L (4-34); AST 27 U/L (14-36); African American GFR (CKD) >90 (>60 ml/min/1.73 sqM); Albumin 4.5 g/dL (3.5-5.0); Alkaline Phosphatase 96 U/L (38-126); Amylase 64 U/L (30-110); Anion Gap 8 mmol/L; Blood Urea Nitrogen 13 mg/dL (7-17); Calcium 9.1 mg/dL (8.4-10.2); Carbon Dioxide 29 mmol/L (22-30); Chloride 103 mmol/L (98-107); Glucose 102 mg/dL (74-99); Lipase 226 U/L (23-300); Non-African American GFR(CKD) 83 (>60 ml/min/1.73 sqM); Potassium 3.8 mmol/L (3.5-5.1); Sodium 140 mmol/L (137-145); Total Bilirubin 0.4 mg/dL (0.2-1.3); Total Protein 7.8 g/dL (6.3-8.2)
--- NOTE | 2022-03-12 19:41 | XR ---
EXAMINATION TYPE: XR chest 2V DATE OF EXAM: 03/12/2022 COMPARISON: 01/19/2022 HISTORY: Chest pain TECHNIQUE: FINDINGS: Heart and mediastinum are normal. Lungs are clear. Diaphragm is normal. Bony thorax appears normal. IMPRESSION: Normal chest. No adverse change.
--- NOTE | 2022-03-12 19:42 | XR ---
EXAMINATION TYPE: XR KUB DATE OF EXAM: 03/12/2022 COMPARISON: 12/25/2013 HISTORY: Pain TECHNIQUE: 2 views upright FINDINGS: Bowel gas pattern is normal. No sign of intestinal obstruction or pneumoperitoneum. Fecal p attern is normal. IMPRESSION: Nonacute abdomen. No adverse change.
[2022-03-12 20:19] VITALS: BP 150/94; PULSE 58; RESP 18
--- NOTE | 2022-03-12 20:33 | US ---
EXAMINATION TYPE: US renals and bladder DATE OF EXAM: 03/12/2022 COMPARISON: CLINICAL HISTORY: left flank pain, eval for hydronephrosis. Left side pain. No hx renal stones. EXAM MEASUREMENTS: Right Kidney: 10.9 x 4.9 x 4.9 cm Left Kidney: 11.0 x 4.7 x 4.6 cm Right Kidney: No hydronephrosis or masses seen Left Kidney: Medial anechoic lesion at hilum = 1.6 x 1.7 cm Bladder: Mildly distended, anechoic Bilateral Jets not seen IMPRESSION: No evidence of solid renal mass or obstruction. No evidence of bladder mass.
--- NOTE | 2022-03-12 20:33 | ED ---
General Adult HPI - General Chief complaint: Back Pain/Injury Stated complaint: Back pain L side, SOB Time Seen by Provider: 03/12/22 17:59 Source: patient, RN notes reviewed, old records reviewed Mode of arrival: ambulatory Limitations: no limitations - History of Present Illness Initial comments: Patient is a 51-year-old female who presents emergency Department complaining of left side and left mid back pain. States it started 4 days ago. Atraumatic. States it kind of radiates from her mid back around to her front. No numbness. No nausea no vomiting. No urinary complaints. Denies chest pain or shortness of breath. No other acute complaints at this time. Due to the severe. Worse with movement. Presents for further evaluation of this time. No history of kidney stones. No hematuria. No radiation down to her groin. - Related Data Home Medications Medication Instructions Recorded Confirmed Loratadine [Claritin] 10 mg PO DAILY 01/09/14 01/19/22 LORazepam [Ativan] 0.5 mg PO DAILY PRN 12/02/17 01/19/22 hydroCHLOROthiazide [Hydrodiuril] 25 mg PO DAILY 12/02/17 01/19/22 Escitalopram [Lexapro] 20 mg PO DAILY 10/01/18 01/19/22 Levothyroxine Sodium [Synthroid] 25 mcg PO HS 09/29/20 01/19/22 Potassium Chloride [Klor-Con 10 ER] 10 meq PO DAILY 10/28/20 01/19/22 Previous Rx's Medication Instructions Recorded Atorvastatin [Lipitor] 20 mg PO DAILY 30 Days #60 tab 01/20/22 Cephalexin [Keflex] 500 mg PO Q12HR 5 Days #10 cap 03/12/22 HYDROcodone/APAP 5-325MG [[place] 1 tab PO Q6HR PRN 3 Days #12 tab 03/12/22 5-325] methocarbamoL [Robaxin-750] 750 mg PO QID PRN 7 Days #28 tab 03/12/22 Allergies Allergy/AdvReac Type Severity Reaction Status Date / Time clarithromycin [From Biaxin] Allergy Swelling Verified 03/12/22 15:52 erythromycin lactobionate Allergy Swelling Verified 03/12/22 15:52 [From Erythrocin] fexofenadine HCl Allergy Swelling Verified 03/12/22 15:52 [From Clara-D 12 Hour] Penicillins Allergy Rash/Dyspne Verified 03/12/22 15:52 a pseudoephedrine HCl Allergy Swelling Verified 03/12/22 15:52 [From Clara-D 12 Hour] Sulfa (Sulfonamide Allergy Unknown Verified 03/12/22 15:52 Antibiotics) Review of Systems ROS Statement: Those systems with pertinent positive or pertinent negative responses have been documented in the HPI. Review of Systems: CONST: Denies fever EYES: Denies blurry vision ENT: Denies nasal congestion C/V: Denies Chest pain RESP: Denies shortness of breath GI: Denies abdominal pain : Denies dysuria SKIN: Denies rash. MSK: Endorses left sided back pain. NEURO: Denies headache ROS Other: All systems not noted in ROS Statement are negative. Past Medical History Past Medical History: Cancer, CVA/TIA, Hypertension, Pneumonia, Thyroid Disorder Additional Past Medical History / Comment(s): TIA 2017-no residual effects, Fx right clavicle & injured shoulder 2019 after a fall, still w/pain, cervical cancer several years ago, pneumonia several years ago, recent admission here for SOB that has been frequent for a while per pt., states still not sure what is causing it, recent stress & echo wnl per pt. History of Any Multi-Drug Resistant Organisms: None Reported Past Surgical History: Section, Orthopedic Surgery, Uterine Ablation Additional Past Surgical History / Comment(s): jaw surgery to extend jaw- titanium screws in jaw,. LEEP procedure, rotator cuff repair, bicep repair, le ft knee arthroscopy, ganglian cyst removal on left middle finger Past Anesthesia/Blood Transfusion Reactions: No Reported Reaction Past Psychological History: No Psychological Hx Reported Smoking Status: Never smoker Past Alcohol Use History: None Reported Past Drug Use History: None Reported - Past Family History Family Family Medical History: Coronary Artery Disease (CAD) General Exam - General Exam Comments Initial Comments: General: Appears in mild to moderate distress secondary to back pain. HEAD: Normal with no signs of head trauma. EYES: PERRLA, EOMI, conjunctiva normal, no discharge. ENT: Hearing grossly intact, normal oropharynx. RESPIRATORY: Clear breath sounds bilaterally. No wheezes, rales, or rhonchi. C/V: Regular rate and rhythm. S1 and S2 auscultated, no edema, peripheral pulses 2+ and intact throughout ABD: Abd is soft, nontender, nondistended no guarding. No CVA tenderness to percussion. No rebound tenderness. No peritoneal signs. EXT: Normal range of motion, no obvious deformity. No midline tenderness palpation of the back, primarily in the left paraspinal muscles with radiation around the inferior most rib spaces to the front of the abdomen. Pain appears to be musculoskeletal in nature due to severe tenderness to palpation with minimal pressure on muscles. Worse with movement. SKIN: No rashes or lesions observed on exposed skin. NEURO: Alert and oriented 4. Limitations: no limitations Course Vital Signs 03/12/22 03/12/22 15:50 20:18 Temperature 98.1 F Pulse Rate 62 58 L Respiratory 20 18 Rate Blood Pressure 161/93 150/94 O2 Sat by Pulse 99 98 Oximetry Medical Decision Making - Medical Decision Making Based on the patient's presentation and physical exam, symptoms intermittently but most this: Nature but cannot definitively rule out a abdominal process at this time. Screening EKG as well as abdominal labs and urinalysis will be obtained. She was in agreement with this plan. We will obtain x-rays as well as a renal ultrasound. She'll be symptomatically treated for her pain. On reevaluation come patient's pain is somewhat improved. Lavatory studies are all unremarkable except for signs of possibly a developing UTI or possible stone with some rbc's present, as well as white blood cells. Possible contaminated catch as well. Due to her symptoms we will treat with antibiotics Keflex patient will receive a dose here. Renal ultrasound reveals no signs of hydronephrosis. Relatively unremarkable exam. I discussed with her at length her symptoms. Do not believe that she requires CT imaging at this time. She was in agreement. It is possible she is passing small kidney stone at this time that we are not seeing on exam. I did recommend that she follow up with her PCP this week. 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 She was in agreement with this plan. Will be discharged home on antibiotics and analgesia. I will provide the patient with a prescription for [place], Keflex, Robaxin. I i nstructed the patient to follow up with their PCP in the next 1-3 days. I explained that the patient should return to the emergency department if they experience any worsening symptoms. Strict return precautions were discussed with the patient. The patient expressed understanding of these instructions. I answered all questions that the patient had. The patient was discharged home in fair condition with their prescriptions and follow up information. - Lab Data Result diagrams: 03/12/22 18:39 03/12/22 18:39 Lab Results 03/12/22 03/12/22 03/12/22 Range/Units 18:39 18:39 18:39 WBC 8.6 (3.8-10.6) k/uL RBC 4.42 (3.80-5.40) m/uL Hgb 13.5 (11.4-16.0) gm/dL Hct 40.0 (34.0-46.0) % MCV 90.5 (80.0-100.0) fL MCH 30.6 (25.0-35.0) pg MCHC 33.8 (31.0-37.0) g/dL RDW 12.7 (11.5-15.5) % Plt Count 274 (150-450) k/uL MPV 7.3 Neutrophils % 73 % Lymphocytes % 21 % Monocytes % 4 % Eosinophils % 2 % Basophils % 1 % Neutrophils # 6.3 (1.3-7.7) k/uL Lymphocytes # 1.8 (1.0-4.8) k/uL Monocytes # 0.3 (0-1.0) k/uL Eosinophils # 0.1 (0-0.7) k/uL Basophils # 0.1 (0-0.2) k/uL Sodium 140 (137-145) mmol/L Potassium 3.8 (3.5-5.1) mmol/L Chloride 103 (98-107) mmol/L Carbon Dioxide 29 (22-30) mmol/L Anion Gap 8 mmol/L BUN 13 (7-17) mg/dL Creatinine 0.82 (0.52-1.04) mg/dL Est GFR (CKD-EPI)AfAm >90 (>60 ml/min/1.73 sqM) Est GFR (CKD-EPI)NonAf 83 (>60 ml/min/1.73 sqM) Glucose 102 H (74-99) mg/dL Calcium 9.1 (8.4-10.2) mg/dL Total Bilirubin 0.4 (0.2-1.3) mg/dL AST 27 (14-36) U/L ALT 13 (4-34) U/L Alkaline Phosphatase 96 (38-126) U/L Total Protein 7.8 (6.3-8.2) g/dL Albumin 4.5 (3.5-5.0) g/dL Amylase 64 (30-110) U/L Lipase 226 (23-300) U/L HCG, Qual Not Detected Urine Color Yellow Urine Appearance Cloudy H (Clear) Urine pH 5.5 (5.0-8.0) Ur Specific [place] 1.023 (1.001-1.035) Urine Protein Trace H (Negative) Urine Glucose (UA) Negative (Negative) Urine Ketones Negative (Negative) Urine Blood Trace H (Negative) Urine Nitrite Negative (Negative) Urine Bilirubin Negative (Negative) Urine Urobilinogen <2.0 (<2.0) mg/dL Ur Leukocyte Esterase Large H (Negative) Urine RBC 11 H (0-5) /hpf Urine WBC 65 H (0-5) /hpf Ur Squamous Epith Cells 20 H (0-4) /hpf Urine Mucus Occasional H (None) /hpf - EKG Data -: EKG Interpreted by Me EKG Comments: 12-lead Electrocardiogram Interpretation Note EKG was reviewed and interpreted by myself. 12-lead ECG performed at 1849 is interpreted by me as revealing normal sinus rhythm at a rate of 57 beats per mi nute. Slight left axis deviation. NH interval is 158 ms, QRS duration is 88 ms, QTc is 389 ms.. There were no ST or T wave abnormalities to suggest myocardial ischemia or injury. R wave progression across the precordium was satisfactory. By my interpretation this EKG is non-diagnostic for acute i schemia. Disposition Clinical Impression: Flank pain, UTI (urinary tract infection) Narrative: suspected left nephrolithiasis, renal colic Disposition: HOME SELF-CARE Condition: Fair Instructions (If sedation given, give patient instructions): Kidney Stones (ED) Prescriptions: Cephalexin [Keflex] 500 mg PO Q12HR 5 Days #10 cap HYDROcodone/APAP 5-325MG [[place] 5-325] 1 tab PO Q6HR PRN 3 Days #12 tab PRN Reason: Pain methocarbamoL [Robaxin-750] 750 mg PO QID PRN 7 Days #28 tab PRN Reason: Pain Is patient prescribed a controlled substance at d/c from ED?: Yes When asked, does pt state using other controlled substances?: No If prescribed controlled substance>3 days was MAPS reviewed?: Prescribed <3 Days If opioid is for acute pain is fill amount 7 days or less?: Yes If Rx opioid, was Start Talking consent form obtained?: Yes Referrals: Raymond Gallegos DO [Primary Care Provider] - 1-2 days Time of Disposition: 20:40
[2022-03-12] MEDS ORDERED: CEPHALEXIN 500 MG CAP PO STA (20:40)
[2022-03-12] MEDS ORDERED: MORPHINE SULFATE 4 MG/ML SYRINGE IVP STA (20:40)
== END 2022-03-12 22:07 | disposition home or self-care (01) ==
LOC: EC 15:47
DX: N39.0 Urinary tract infection, site not specified (principal); I10 Essential (primary) hypertension; E07.9 Disorder of thyroid, unspecified; Z86.73 Personal history of transient ischemic attack (TIA), and cerebral infarction without residual deficits; Z79.890 Hormone replacement therapy; Z79.899 Other long term (current) drug therapy
CPT/HCPCS: 36415; 93005; 80053; 82150; 83690; 85025; 81001; 84703; 87086; 71046; 74018; 76770; 99284; 96374; 96375; 96376; 96361; J2270; J1885

== ENCOUNTER → 2022-06-13 | Outpatient (CLI) | payer OTHER ==
--- NOTE | 2022-06-13 15:43 | XR ---
Right foot and right ankle HISTORY: S93.401A Sprain rt ankle S93.601A Sprain rt foot 3 views of the right foot, 3 views of the right ankle Soft tissue swelling is noted especially over the right ankle laterally. Bone mineralization, joint s paces and alignment are maintained. There is a plantar calcaneal spur. Degenerative change present at the first metatarsophalangeal joint, irregular appearance of the joint may be due to postop change, correlate, there is soft tissue swelling. IMPRESSION: Soft tissue swelling and additional findings above.
== END | disposition home or self-care (01) ==
LOC: RADXRMAIN 15:07
PROVIDERS: ATTEND Emergency Medicine
DX: S93.401A Sprain of unspecified ligament of right ankle, initial encounter (principal); S93.601A Unspecified sprain of right foot, initial encounter

== ENCOUNTER → 2022-06-22 | Outpatient (CLI) | payer OTHER ==
--- NOTE | 2022-06-22 16:36 | XR ---
EXAMINATION TYPE: XR ankle complete RT, XR foot complete RT DATE OF EXAM: 06/22/2022 COMPARISON: Right ankle radiograph 06/13/2022. HISTORY: S93.401D SPRAIN OF UNSPECIFIED LIGAMENT OF RIGHT A TECHNIQUE: Frontal, lateral and oblique images of the right ankle are obtained. Frontal, lateral, an d oblique images of the right foot were obtained. COMPARISON: None. FINDINGS: There is no acute fracture/dislocation evident. No callus formation identified. Ankle mort ise is intact. The joint spaces appear within normal limits. Soft tissue swelling over the lateral m alleolus is marginally decreased. Plantar calcaneal spur noted. Kagers fat pad is intact. IMPRESSION: 1. No acute fracture or dislocation. 2. Marginal decrease in soft tissue swelling over the lateral malleolus.
== END | disposition home or self-care (01) ==
LOC: RADXRMAIN 16:05
PROVIDERS: ATTEND Emergency Medicine
DX: M79.89 Other specified soft tissue disorders (principal)

== ENCOUNTER → 2022-06-28 | Outpatient (CLI) | payer OTHER ==
--- NOTE | 2022-06-29 05:00 | MR ---
EXAMINATION TYPE: MR ankle RT wo con DATE OF EXAM: 06/28/2022 COMPARISON: None HISTORY: Rt ankle/foot pain due to injury. Multiplanar multiecho imaging of the right ankle performed with no contrast. Ankle mortise is anatomic. Joint spaces are fairly normal. The collateral ligaments appear intact Ach illes tendon is intact. The plantar fascia appears intact. The medial and lateral flexor tendons of t he ankle appear intact. There is plantar calcaneal spurring. There is slight increased ankle joint an d subtalar joint fluid. Somewhat linear irregular area of increased signal on the T2 images in the an terior calcaneus that could be sequela of an old fracture. No acute fracture seen. IMPRESSION: Increased joint fluid suggestive of some nonspecific synovitis. No acute fracture seen. Anterior calc aneus increased fluid signal could relate to an old injury. Calcaneal spurring.
--- NOTE | 2022-06-29 05:16 | MR ---
EXAMINATION TYPE: MR foot RT wo con DATE OF EXAM: 06/28/2022 COMPARISON: None HISTORY: Rt ankle/foot pain due to injury. Multiplanar multiecho imaging of the right foot performed with no contrast. There is some increased joint fluid at the second MP joint and the second PIP joint consistent with s ome synovitis. There is no evidence of a fracture. There are some mild degenerative cyst formation in the first metatarsal head. There is mild narrowing of the first and second MP joint spaces. There is mild narrowing of the talonavicular joint space. No subluxation. The medial and lateral flexor tendo ns of the foot appear intact. There is mild increased joint fluid at the subtalar joint. 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 Increased joint fluid in the hindfoot and also at the first and second MP joints consistent with synovitis. No fracture seen. No evidence of ligament or tendon tear.
== END | disposition home or self-care (01) ==
LOC: RADMRIMAIN 14:11
PROVIDERS: ATTEND Emergency Medicine
DX: S93.601D Unspecified sprain of right foot, subsequent encounter (principal); M77.31 Calcaneal spur, right foot; M19.071 Primary osteoarthritis, right ankle and foot

== ENCOUNTER → 2022-12-27 | Outpatient (CLI) | payer BC ==
--- NOTE | 2022-12-27 12:18 | CT ---
EXAMINATION TYPE: CT brain wo con DATE OF EXAM: 12/27/2022 HISTORY: headaches, right eye visual changes CT DLP: 1159 mGycm. Automated Exposure Control for Dose Reduction was Utilized. TECHNIQUE: CT scan of the head is performed without contrast. COMPARISON: CT brain November 30, 2021. FINDINGS: There is no acute intracranial hemorrhage or midline shift identified. Ventricles are wit hin normal limits in size for patient's age. Mild sulcal prominence over superior bilateral frontal l obes redemonstrated consistent with mild age-related frontal lobe atrophy. Suárez-white matter differen tiation is maintained. The globes are intact bilaterally. The visualized sinuses are clear. IMPRESSION: No acute intracranial hemorrhage or midline shift. No significant change from prior CT.
== END | disposition home or self-care (01) ==
LOC: RADCTMAIN 11:52
PROVIDERS: ATTEND Family Medicine
DX: R51.9 Headache, unspecified (principal)
CPT/HCPCS: 70450

== ENCOUNTER 2023-02-10 13:43 | Emergency (ER) | payer BC ==
[2023-02-10 13:49] VITALS: RESP 16
[2023-02-10] MEDS ORDERED: DEXAMETHASONE SOD PHOSPHATE 10 MG/ML 1 ML VIAL IM STA (15:59)
[2023-02-10] MEDS ORDERED: TRIAMCINOLONE 0.1% CREAM 80 GM TUBE TOPICAL STA (15:59)
--- NOTE | 2023-02-10 16:07 | ED ---
Skin/Abscess/FB HPI - General Chief complaint: Skin/Abscess/Foreign Body Stated complaint: lumps on feet Time Seen by Provider: 02/10/23 15:04 Source: patient, RN notes reviewed, old records reviewed Mode of arrival: ambulatory Limitations: no limitations - History of Present Illness Initial comments: This is a 51-year-old female to the emergency department for evaluation. Patient presents today for evaluation of lower ankle pain and swelling. Persistent pain and swelling here in the emergency department. Patient also [place] on socks and shoes this morning, without gardening yesterday and believes she may have contact with something in her garden or in the environment. Otherwise no complaints no shortness of breath no ALLERGIES no medical history no complaints headache chest pain shortness breath or abdominal pain, no fevers no ankle pain - Related Data Home Medications Medication Instructions Recorded Confirmed Loratadine [Claritin] 10 mg PO DAILY 01/09/14 01/19/22 LORazepam [Ativan] 0.5 mg PO DAILY PRN 12/02/17 01/19/22 hydroCHLOROthiazide [Hydrodiuril] 25 mg PO DAILY 12/02/17 01/19/22 Escitalopram [Lexapro] 20 mg PO DAILY 10/01/18 01/19/22 Levothyroxine Sodium [Synthroid] 25 mcg PO HS 09/29/20 01/19/22 Potassium Chloride [Klor-Con 10 ER] 10 meq PO DAILY 10/28/20 01/19/22 Previous Rx's Medication Instructions Recorded Atorvastatin [Lipitor] 20 mg PO DAILY 30 Days #60 tab 01/20/22 Cephalexin [Keflex] 500 mg PO Q12HR 5 Days #10 cap 03/12/22 HYDROcodone/APAP 5-325MG [[place] 1 tab PO Q6HR PRN 3 Days #12 tab 03/12/22 5-325] methocarbamoL [Robaxin-750] 750 mg PO QID PRN 7 Days #28 tab 03/12/22 Cyclobenzaprine [Flexeril] 5 mg PO TID PRN #15 tablet 11/07/22 Ibuprofen [Motrin] 800 mg PO Q8HR PRN #30 tab 11/07/22 Lidocaine 5% Patch [Lidoderm 5% 1 patch TOPICAL DAILY PRN #7 patch 11/07/22 Patch] predniSONE 50 mg PO DAILY #5 tab 02/10/23 Allergies Allergy/AdvReac Type Severity Reaction Status Date / Time clarithromycin [From Biaxin] Allergy Swelling Verified 02/10/23 13:49 erythromycin lactobionate Allergy Swelling Verified 02/10/23 13:49 [From Erythrocin] fexofenadine HCl Allergy Swelling Verified 02/10/23 13:49 [From Clara-D 12 Hour] Penicillins Allergy Rash/Dyspne Verified 02/10/23 13:49 a pseudoephedrine HCl Allergy Swelling Verified 02/10/23 13:49 [From Clara-D 12 Hour] Sulfa (Sulfonamide Allergy Unknown Verified 02/10/23 13:49 Antibiotics) Review of Systems ROS Statement: Those systems with pertinent positive or pertinent negative responses have been documented in the HPI. ROS Other: All systems not noted in ROS Statement are negative. Past Medical History Past Medical History: Cancer, CVA/TIA, Hypertension, Pneumonia, Thyroid Disorder Additional Past Medical History / Comment(s): TIA 2017-no residual effects, Fx right clavicle & injured shoulder 2019 after a fall, still w/pain, cervical cancer several years ago, pneumonia several years ago, recent admission here for SOB that has been frequent for a while per pt., states still not sure what is causing it, recent stress & echo wnl per pt. History of Any Multi-Drug Resistant Organisms: None Reported Past Surgical History: Section, Orthopedic Surgery, Uterine Ablation Additional Past Surgical History / Comment(s): jaw surgery to extend jaw- titanium screws in jaw,. LEEP procedure, rotator cuff repair, bicep repair, left knee arthroscopy, ganglian cyst removal on left middle finger Past Anesthesia/Blood Transfusion Reactions: No Reported Reaction Past Psychological History: No Psychological Hx Reported Smoking Status: Never smoker Past Alcohol Use History: None Reported Past Drug Use History: None Reported - Past Family History Family Family Medical History: Coronary Artery Disease (CAD) General Exam Limitations: no limitations General appearance: alert, in no apparent distress Head exam: Present: atraumatic, normocephalic, normal inspection Eye exam: Present: normal appearance, PERRL, EOMI. Absent: scleral icterus, conjunctival injection, periorbital swelling ENT exam: Present: normal exam, mucous membranes moist Neck exam: Present: normal inspection. Absent: tenderness, meningismus, lymphadenopathy Respiratory exam: Present: normal lung sounds bilaterally. Absent: respiratory distress, wheezes, rales, rhonchi, stridor Cardiovascular Exam: Present: regular rate, normal rhythm, normal heart sounds. Absent: systolic murmur, diastolic murmur, rubs, gallop, clicks GI/Abdominal exam: Present: soft, normal bowel sounds. Absent: distended, tenderness, guarding, rebound, rigid Extremities exam: Present: normal inspection, full ROM, tenderness, normal capillary refill, other (Bilateral ankle edema rash). Absent: pedal edema, joint swelling, calf tenderness Back exam: Present: normal inspection Neurological exam: Present: alert, oriented X3, CN II-XII intact Psychiatric exam: Present: normal affect, normal mood Skin exam: Present: warm, dry, intact, normal color. Absent: rash Course Vital Signs 02/10/23 13:46 Temperature 97.9 F Pulse Rate 58 L Respiratory 16 Rate Blood Pressure 142/86 O2 Sat by Pulse 99 Oximetry - Reevaluation(s) Reevaluation #1: 02/10/23 16:14 Record is reviewed Reevaluation #2: 02/10/23 16:14 Patient is no change in symptoms here in the ER Reevaluation #3: 02/10/23 16:14 Patient informed of results and questions have been answered Reevaluation #4: 02/10/23 16:15 Was pt. sent in by a medical professional or institution? @ -no Did you speak to anyone other than the patient for history? @ -no Did you review nursing and triage notes? @ -agree Were old charts reviewed? @ -no Differential Diagnosis? @ -prior EKG interpreted by me (3pts min.)? @ -no X-rays interpreted by me (1pt min.)? @ -no CT interpreted by me (1pt min.)? @ -no U/S interpreted by me (1pt. min.)? @ -no What testing was considered but not performed? (CT, X-rays, U/S, labs)? Why? @ -no What meds were considered but not given? Why? @ -no Did you discuss the management of the patient with other professionals? @ -no Did you reconcile home meds? @ -no Was smoking cessation discussed for >3mins.? @ -no Was critical care preformed (if so, how long)? @ -no Were there social determinants of health that impacted care today? How? (Homelessness, low income, unemployed, alcoholism, drug addiction, transportation, low edu. Level, literacy, decrease access to med. care, fci, rehab)? @ -no Was there de-escalation of care discussed even if they declined? (Discuss DNR or withdrawal of care, Hospice)? @ -no What co-morbidities impacted this encounter? (DM, HTN, Smoking, COPD, CAD, Cancer, CVA, Hep., AIDS, mental health diagnosis, sleep apnea, morbid obesity)? @ -none Was patient admitted / discharged? @ -52 female to the emergency department for evaluation of lower extremity edema, patient has bilateral lower extremity edema and swelling, no redness and erythema, mild pain with ambulation. No other complaints. Patient was started on steroids and can be discharged home Discharge Undiagnosed new problem with uncertain prognosis? @ -no Drug Therapy requiring intensive monitoring for toxicity (Heparin, Nitro, Insulin, Cardizem)? @ -no Were any procedures done? @ -no Diagnosis/symptom? @ -Bilateral ankle dermatitis and edema Acute, or Chronic, or Acute on Chronic? @ -no Uncomplicated (without systemic symptoms) or Complicated (systemic symptoms)? @ -uncomplicated Side effects of treatment? @ -no Exacerbation, Progression, or Severe Exacerbation] @ -no Poses a threat to life or bodily function? @ -no Disposition Clinical Impression: Ankle edema, Bilateral edema of lower extremity, Contact dermatitis Disposition: HOME SELF-CARE Condition: Good Instructions (If sedation given, give patient instructions): Dermatitis (ED) Prescriptions: predniSONE 50 mg PO DAILY #5 tab Is patient prescribed a controlled substance at d/c from ED?: No Referrals: Raymond Gallegos DO [Primary Care Provider] - 1-2 days Time of Disposition: 16:00
[2023-02-10 16:43] VITALS: BP 142/87; PULSE 56; TEMP 97.5
== END 2023-02-10 16:40 | disposition home or self-care (01) ==
LOC: EC 13:43
DX: L25.9 Unspecified contact dermatitis, unspecified cause (principal); R22.43 Localized swelling, mass and lump, lower limb, bilateral; I10 Essential (primary) hypertension; E07.9 Disorder of thyroid, unspecified; Z86.73 Personal history of transient ischemic attack (TIA), and cerebral infarction without residual deficits; Z88.1 Allergy status to other antibiotic agents; Z88.0 Allergy status to penicillin; Z88.2 Allergy status to sulfonamides; Z88.8 Allergy status to other drugs, medicaments and biological substances; Z79.890 Hormone replacement therapy; Z79.899 Other long term (current) drug therapy
CPT/HCPCS: 99283; 96372; J1100

== ENCOUNTER → 2023-10-24 | Outpatient (CLI) | payer BC, OTHER ==
--- NOTE | 2023-10-26 19:18 | MM ---
Reason for Exam: Screening (asymptomatic). Last screening mammogram was performed 12 month(s) ago. Patient History: Menarche at age 13. First Full-Term at age 39. Late child-bearing (after 30). Perimenopausal. Other cancer, age 26. Hormonal Contraceptives, starting at age 22 for 12 years. Maternal aunt had breast cancer, age 73. Maternal aunt had ovarian cancer. Paternal aunt had breast cancer, age 70. Risk Values: Jessi 5 year model risk: 1.4%. NCI Lifetime model risk: 10.6%. Prior Study Comparison: 08/20/2019 Bilateral Screening Mammogram, [facility]. 09/13/2020 Bilateral Screening Mammogram, [facility]. 10/17/2022 Bilateral MG screening mammo w CAD, [facility]. Tissue Density: There are scattered fibroglandular densities. Findings: Analyzed By CAD. Unchanged bilateral asymmetric densities. There is no suspicious group of microcalcifications or new suspicious mass in either breast. Overall Assessment: Benign, BI-RAD 2 Management: Screening Mammogram of both breasts in 1 year. . Patient should continue monthly self-breast exams. A clinical breast exam by your physician is recommended on an annual basis. This exam should not preclude additional follow-up of suspicious palpable abnormalities. Note on Jessi scores and lifetime risk: 1. A Jessi score greater than 3% is considered moderate risk. If this is the case, consider specialist referral to assess eligibility for a risk reducing agent. 2. If overall lifetime risk for the development of breast cancer is 20% or higher, the patient may qualify for future screening with alternating mammogram and breast MRI. Electronically signed and approved by: Tulio Asher M.D. Radiologist
== END | disposition home or self-care (01) ==
LOC: RADMAMWWP 15:42
PROVIDERS: ATTEND Obstetrics & Gynecology
DX: Z12.31 Encounter for screening mammogram for malignant neoplasm of breast (principal); Z80.3 Family history of malignant neoplasm of breast
CPT/HCPCS: 77067

== ENCOUNTER 2023-12-26 15:42 | Emergency (ER) | payer BC, OTHER ==
[2023-12-26 16:14] VITALS: TEMP 97.9
--- NOTE | 2023-12-26 16:50 | ED ---
Chest Pain HPI - General Chief Complaint: Chest Pain Stated Complaint: Chest pain/SOB Time Seen by Provider: 12/26/23 16:01 Source: patient Mode of arrival: ambulatory Limitations: no limitations - History of Present Illness Initial Comments: Patient is a pleasant 53-year-old female who presents the ER today for evaluation of 3 to 4 days of right sided chest pain. Patient describes the pain as a sharp stabbing this continuous with no relief. Patient thought it might be just her skin or muscle tightness she had applied IcyHot with no relief. Today she noted a rash on the side of her breast and was concerned she may have shingles. Patient has no cardiac history no history of asthma or COPD, no history of blood clots or family history of blood clots she is on no estrogen and she does not smoke. - Related Data Home Medications Medication Instructions Recorded Confirmed Loratadine [Claritin] 10 mg PO DAILY PRN 01/09/14 12/26/23 LORazepam [Ativan] 0.5 mg PO DAILY 12/02/17 12/26/23 hydroCHLOROthiazide [Hydrodiuril] 25 mg PO DAILY 12/02/17 12/26/23 Escitalopram [Lexapro] 20 mg PO DAILY 10/01/18 12/26/23 Magnesium(Unknown Dose) 1 tab PO DAILY 12/26/23 12/26/23 Potassium Chloride 10 meq PO BID 12/26/23 12/26/23 Turmeric(Unknown Dose) 1 cap PO DAILY 12/26/23 12/26/23 Vitamin D3(Unknown Dose) 1 tab PO DAILY 12/26/23 12/26/23 Zinc(Unknown Dose) 1 tab PO DAILY 12/26/23 12/26/23 Previous Rx's Medication Instructions Recorded Acetaminophen-Codeine 300-30mg 1 tab PO Q4H PRN 3 Days #18 tablet 12/26/23 [Tylenol w/codeine #3] Gabapentin 300 mg PO TID 10 Days #30 cap 12/26/23 valACYclovir HCL [Valtrex] 1,000 mg PO TID 7 Days #21 tablet 12/26/23 Allergies Allergy/AdvReac Type Severity Reaction Status Date / Time clarithromycin [From Biaxin] Allergy Dyspnea Verified 12/26/23 17:08 fexofenadine HCl Allergy Dyspnea/Robin Verified 12/26/23 17:08 [From Clara-D 12 Hour] h Penicillins Allergy Rash/Dyspne Verified 12/26/23 17:08 a pseudoephedrine HCl Allergy Rash/Dyspne Verified 12/26/23 17:08 [From Clara-D 12 Hour] a Sulfa (Sulfonamide Allergy Dyspnea Verified 12/26/23 17:08 Antibiotics) erythromycin lactobionate AdvReac Nausea & Verified 12/26/23 17:08 [From Erythrocin] Vomiting & Diarrhea Review of Systems ROS Statement: Those systems with pertinent positive or pertinent negative responses have been documented in the HPI. ROS Other: All systems not noted in ROS Statement are negative. EKG Findings - EKG Comments: EKG Findings:: EKG interpreted by me, EKG obtained due to complaint of chest pain EKG obtained at 1555 rate of 62 rhythm is sinus normal axis, normal intervals, ID 185 QRS 91 QTc 431 there are no acute ST elevations or depressions there is no evidence of ischemia infarction or arrhythmia. Past Medical History Past Medical History: Cancer, CVA/TIA, Hypertension, Pneumonia, Thyroid Disorder Additional Past Medical History / Comment(s): TIA 2017-no residual effects, Fx right clavicle & injured shoulder 2019 after a fall, still w/pain, cervical cancer several years ago, pneumonia several years ago, recent admission here for SOB that has been frequent for a while per pt., states still not sure what is causing it, recent stress & echo wnl per pt. History of Any Multi-Drug Resistant Organisms: None Reported Past Surgical History: Section, Orthopedic Surgery, Uterine Ablation Additional Past Surgical History / Comment(s): jaw surgery to extend jaw- titanium screws in jaw,. LEEP procedure, rotator cuff repair, bicep repair, left knee arthroscopy, ganglian cyst removal on left middle finger Past Anesthesia/Blood Transfusion Reactions: No Reported Reaction Past Psychological History: No Psychological Hx Reported Smoking Status: Never smoker Past Alcohol Use History: None Reported Past Drug Use History: None Reported - Past Family History Family Family Medical History: Coronary Artery Disease (CAD) General Exam - General Exam Comments Initial Comments: Physical Exam GENERAL: Patient is well-developed and well-nourished. Patient is nontoxic and well- hydrated and is in no distress. HENT: Normocephalic, Atraumatic. EYES: PERRL, EOMI PULMONARY: Unlabored respirations. No audible rales rhonchi or wheezing was noted. CARDIOVASCULAR: There is a regular rate and rhythm without any murmurs gallops or rubs. ABDOMEN: Soft and nontender with normal bowel sounds. SKIN: Vesicular rash at the T3 level over the back and again in the T3 dermatome from the axilla over the breast : Deferred NEUROLOGIC: Patient is alert and oriented x3. Moving all extremities spontaneously MUSCULOSKELETAL: Normal extremities with adequate strength and full range of motion. No lower extremity swelling or edema. No calf tenderness. PSYCHIATRIC: Normal psychiatric evaluation. Limitations: no limitations Course Vital Signs 12/26/23 12/26/23 15:42 17:41 Temperature 97.9 F Pulse Rate 67 68 Respiratory 16 18 Rate Blood Pressure 157/96 148/84 O2 Sat by Pulse 98 97 Oximetry Chest Pain MDM - MDM Was pt. sent in by a medical professional or institution (, PA, BARREL LATHE OPERATOR INSIDE, urgent care, hospital, or correction...) When possible be specific @ -No Did you speak to anyone other than the patient for history (EMS, parent, family, police, friend...)? What history was obtained from this source @ -No Did you review nursing and triage notes (agree or disagree)? Why? @ -I reviewed and agree with nursing and triage notes Were old charts reviewed (outside hosp., previous admission, EMS record, old EKG, old radiological studies, urgent care reports/EKG's, correction records)? Report findings @ -No old charts were reviewed Differential Diagnosis (chest pain, altered mental status, abdominal pain women, abdominal pain men, vaginal bleeding, weakness, fever, dyspnea, syncope, headache, dizziness, GI bleed, back pain, seizure, CVA, palpatations, mental health)? @ -Not applicable EKG interpreted by me (3pts min.). @ -As above X-rays interpreted by me (1pt min.). @ -No acute pathology CT interpreted by me (1pt min.). @ -None done U/S interpreted by me (1pt. min.). @ -None done What testing was considered but not performed or refused? (CT, X-rays, U/S, labs)? Why? @ -None What meds were considered but not given or refused? Why? @ -None Did you discuss the management of the patient with other professionals (professionals i.e. , PA, BARREL LATHE OPERATOR INSIDE, lab, RT, psych nurse, social science teacher, vp medical, teacher, parcel post officer, supervisor case loading)? Give summary @ -No Was smoking cessation discussed for >3mins.? @ -No Was critical care preformed (if so, how long)? @ -No Were there social determinants of health that impacted care today? How? (Homelessness, low income, unemployed, alcoholism, drug addiction, transportation, low edu. Level, literacy, decrease access to med. care, assisted, rehab)? @ -No Was there de-escalation of care discussed even if they declined (Discuss DNR or withdrawal of care, Hospice)? DNR status @ -No What co-morbidities impacted this encounter? (DM, HTN, Smoking, COPD, CAD, Cancer, CVA, ARF, Chemo, Hep., AIDS, mental health diagnosis, sleep apnea, morbid obesity)? @ -None Was patient admitted / discharged? Hospital course, mention meds given and route, prescriptions, significant lab abnormalities, going to OR and other pertinent info. @ -Discharged Patient was seen and evaluated, history is obtained from patient. This is a healthy 53-year-old female with 4 days of stabbing right sided chest pain and exam she has shingles. I discussed with the patient that this is the likely cause of her chest pain however she is quite anxious wants a thorough workup therefore labs chest x-ray and EKG were obtained all are negative. D-dimer is not elevated troponin is not elevated EKG was nonischemic chest x-ray was unremarkable. Patient was reassured by this she was given her first dose of Valtrex here in the ER and prescribed Valtrex for treatment of shingles and gabapentin for treatment of the herpetic neuropathy. Patient was given [place] to take nightly for pain management. 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 Patient was advised she cannot work until she has no open vesicles. Undiagnosed new problem with uncertain prognosis? @ -No Drug Therapy requiring intensive monitoring for toxicity (Heparin, Nitro, Insulin, Cardizem)? @ -No Were any procedures done? @ -No Diagnosis/symptom? @ -Shingles Acute, or Chronic, or Acute on Chronic? @ -Acute Uncomplicated (without systemic symptoms) or Complicated (systemic symptoms)? @ -Default Side effects of treatment? @ -No Exacerbation, Progression, or Severe Exacerbation? @ -No Poses a threat to life or bodily function? How? (Chest pain, [place], [place], pneumonia, PE, COPD, DKA, ARF, appy, cholecystitis, CVA, Diverticulitis, Homicidal, Suicidal, threat to staff... and all critical care pts) @ -No Disposition Clinical Impression: Emily Disposition: HOME SELF-CARE Condition: Stable Instructions (If sedation given, give patient instructions): Emily (ED) Prescriptions: Gabapentin 300 mg PO TID 10 Days #30 cap Acetaminophen-Codeine 300-30mg [Tylenol w/codeine #3] 1 tab PO Q4H PRN 3 Days #18 tablet PRN Reason: Pain valACYclovir HCL [Valtrex] 1,000 mg PO TID 7 Days #21 tablet Is patient prescribed a controlled substance at d/c from ED?: No Referrals: Raymond Gallegos DO [Primary Care Provider] - 1-2 days
--- NOTE | 2023-12-26 16:52 | XR ---
EXAMINATION TYPE: XR chest 2V DATE OF EXAM: 12/26/2023 COMPARISON: 03/12/2022 HISTORY: Shortness of breath TECHNIQUE: Frontal and lateral views of the chest are obtained. FINDINGS: Scattered senescent parenchymal changes noted. Hyperinflation compatible with COPD. No evidence for infiltrate. No evidence for atelectasis. Heart size is stable. Mediastinal structures are stable and grossly unremarkable. No evidence for hilar prominence. Degenerative changes dorsal spine. IMPRESSION: 1. No evidence for acute pulmonary disease.
[2023-12-26 17:06] LABS: INR 0.9 (<1.2); Partial Thromboplastin Time 27.4 sec (22.0-30.0); Prothrombin Time 10.3 sec (10.0-12.5)
[2023-12-26 17:07] LABS: ALT 17 U/L (4-34); AST 30 U/L (14-36); African American GFR (CKD) >90 (>60 ml/min/1.73 sqM); Albumin 4.2 g/dL (3.5-5.0); Alkaline Phosphatase 95 U/L (38-126); Anion Gap 10 mmol/L; Blood Urea Nitrogen 23 mg/dL (7-17); Calcium 9.3 mg/dL (8.4-10.2); Carbon Dioxide 24 mmol/L (22-30); Chloride 104 mmol/L (98-107); Glucose 133 mg/dL (74-99); Magnesium 2.1 mg/dL (1.6-2.3); Non-African American GFR(CKD) 86 (>60 ml/min/1.73 sqM); Potassium 3.8 mmol/L (3.5-5.1); Sodium 138 mmol/L (137-145); Total Bilirubin 0.5 mg/dL (0.2-1.3); Total Protein 7.4 g/dL (6.3-8.2)
[2023-12-26 17:14] LABS: Basophils % (A) 1 %; Eosinophils # (A) 0.1 k/uL (0-0.7); Eosinophils % (A) 1 %; HCT 40.8 % (34.0-46.0); HGB 13.7 gm/dL (11.4-16.0); Lymphocytes # (A) 1.8 k/uL (1.0-4.8); Lymphocytes % (A) 32 %; MCH 29.5 pg (25.0-35.0); MCHC 33.5 g/dL (31.0-37.0); MCV 88.1 fL (80.0-100.0); Mean Platelet Volume 7.3; Monocytes # (A) 0.2 k/uL (0-1.0); Monocytes % (A) 3 %; Neutrophils # (A) 3.5 k/uL (1.3-7.7); Neutrophils % (A) 62 %; Platelet Count 197 k/uL (150-450); RBC 4.63 m/uL (3.80-5.40); RDW 13.2 % (11.5-15.5); WBC 5.7 k/uL (3.8-10.6)
[2023-12-26] MEDS: valACYclovir HCL 1,000 MG TABLET PO ONE (17:34)
[2023-12-26 18:13] VITALS: BP 148/84; PULSE 68; RESP 18
== END 2023-12-26 17:49 | disposition home or self-care (01) ==
LOC: EC 15:42
DX: B02.9 Zoster without complications (principal); Z88.2 Allergy status to sulfonamides; Z88.1 Allergy status to other antibiotic agents; Z88.0 Allergy status to penicillin; Z88.8 Allergy status to other drugs, medicaments and biological substances
CPT/HCPCS: 36415; 71046; 80053; 83735; 84484; 85025; 85379; 85610; 85730; 93005; 99285

== ENCOUNTER → 2024-08-01 | Outpatient (CLI) | payer BC ==
[2024-08-01 15:36] LABS: HCT 40.6 % (37.2-46.3); HGB 13.8 g/dL (12.0-15.0); MCH 29.8 pg (27.0-32.0); MCV 87.7 FL (80.0-97.0); Mean Platelet Volume 9.9 FL (9.5-12.2); NRBC Per 100 WBC 0 X 10*3/uL (0.00-0.01); Platelet Count 225 X 10*3/uL (140-440); RBC 4.63 X 10*6/uL (4.10-5.20); RDW 13.4 % (11.5-14.5); WBC 4.45 X 10*3/uL (4.50-10.00)
[2024-08-01 15:59] LABS: ALT 10 U/L (8-44); AST 21 U/L (13-35); Albumin 4.4 g/dL (3.8-4.9); Albumin/Globulin Ratio 1.83 Ratio (1.60-3.17); Alkaline Phosphatase 84 U/L (41-126); Blood Urea Nitrogen 14.4 mg/dL (9.0-27.0); Calcium 9.3 mg/dL (8.7-10.3); Carbon Dioxide 23.9 mmol/L (21.6-31.8); Chloride 106 mmol/L (96-109); Globulin 2.4 g/dL (1.6-3.3); Glucose 92 mg/dL (70-110); LDL Cholesterol,Calculated 98.3 mg/dL (0.0-131.0); Potassium 4.3 mmol/L (3.5-5.5); Sodium 141 mmol/L (135-145); Total Bilirubin 0.7 mg/dL (0.3-1.2); Total Protein 6.8 g/dL (6.2-8.2); VLDL Calculation 13.82 mg/dL (5.00-40.00)
[2024-08-01 16:54] LABS: Appearance,Urine Turbid (Clear); Bilirubin,Urine Negative (Negative); Blood,Urine Negative (Negative); Color,Urine Yellow (Yellow); Ketones,Urine Trace (Negative); Nitrite,Urine Negative (Negative); PH, Urine 5.5; Specific Gravity,Urine 1.024 (1.001-1.030)
[2024-08-01 17:02] LABS: Bacteria,Urine 2+ (None Seen)
== END | disposition home or self-care (01) ==
LOC: LABWHC1 09:09
PROVIDERS: ATTEND Family Medicine
DX: Z00.00 Encounter for general adult medical examination without abnormal findings (principal)
CPT/HCPCS: 36415; 80053; 80061; 81001; 82306; 83036; 84443; 85027

== ENCOUNTER 2024-08-26 10:07 | Day surgery (SDC) | payer BC ==
[2024-08-22 14:06] VITALS: BMI 27.3
[2024-08-26] MEDS ORDERED: LIDOCAINE 1% (10MG/ML) FOR IV START INTRADERMA PRN (10:44)
[2024-08-26] MEDS: LACTATED RINGERS 1,000 ML IV SCH (10:59)
[2024-08-26 11:05] LABS: Glucose,Whole Blood 79 mg/dL (70-110)
[2024-08-26 11:06] VITALS: TEMP 97.3
[2024-08-26] MEDS: IV FLUID CONTINUATION 1,000 ML IV ONE ×2 (11:06→11:30)
[2024-08-26] MEDS ORDERED: PROPOFOL 10 MG/ML 20 ML VIAL IV ONE (11:33)
--- NOTE | 2024-08-26 11:50 | P.PCN ---
Date of Procedure: 08/26/24 Procedure(s) Performed: BRIEF HISTORY: Patient is a 54-year-old pleasant white female scheduled for an elective colonoscopy as a part of screening for colon cancer. PROCEDURE PERFORMED: Colonoscopy. PREOPERATIVE DIAGNOSIS: Screening for colon cancer. IV sedation per Anesthesia. PROCEDURE: After informed consent was obtained, the patient, was brought into the endoscopy unit. IV sedation was administered by Anesthesia under continuous monitoring. Digital rectal examination was normal. Initially the Olympus CF-160 flexible video colonoscope was then inserted in the rectum, gradually advanced into the cecum without any difficulty. Careful examination was performed as the scope was gradually being withdrawn. Ileocecal valve and the appendiceal orifice were visualized and appeared normal. Prep was fair. Mucosa of the cecum, ascending colon, transverse colon, descending colon, sigmoid colon, and rectum appeared normal. Retroflexion was performed in the rectum and no lesions were seen. Katter right-sided diverticulosis and. The patient tolerated the procedure well. IMPRESSION: Normal-appearing colon from rectum to cecum with no evidence of colorectal neoplasia. Scattered right-sided diverticulosis. RECOMMENDATIONS: Findings of this examination were discussed with the patient as well as her family. She was advised to have repeat screening colonoscopy in 10 years..
[2024-08-26 12:03] VITALS: RESP 20
[2024-08-26 12:27] VITALS: BP 145/95; PULSE 62
== END 2024-08-26 12:55 | disposition home or self-care (01) ==
LOC: ORWHC2ENDO 10:07
PROVIDERS: ATTEND Internal Medicine Gastroenterology
DX: Z12.11 Encounter for screening for malignant neoplasm of colon (principal); K57.30 Diverticulosis of large intestine without perforation or abscess without bleeding; I10 Essential (primary) hypertension; E03.9 Hypothyroidism, unspecified; F17.200 Nicotine dependence, unspecified, uncomplicated; Z86.73 Personal history of transient ischemic attack (TIA), and cerebral infarction without residual deficits; Z88.1 Allergy status to other antibiotic agents; Z88.2 Allergy status to sulfonamides; Z88.8 Allergy status to other drugs, medicaments and biological substances; Z79.890 Hormone replacement therapy; Z79.899 Other long term (current) drug therapy
CPT/HCPCS: 45378; 81025